=== PATIENT | male | born 1950 ===

== ENCOUNTER 2016-12-20 15:33 | Emergency (ER) | payer OTHER, MEDICARE ==
[2016-12-20 15:34] VITALS: BMI 41.3
[2016-12-20 15:45] VITALS: BP 164/93; PULSE 78; RESP 18; TEMP 97.4; O2SAT 96
[2016-12-20] MEDS ORDERED: Sodium Chloride 0.9% 500 ML IV STA (16:28)
--- NOTE | 2016-12-20 16:35 | ED PDOC ---
HPI: General Adult Time Seen by Provider: 12/20/16 16:19 Chief Complaint (Nursing): GI Problem Chief Complaint (Provider): GI Problem History Per: Patient History/Exam Limitations: no limitations Onset/Duration Of Symptoms: Days (x6 days) Additional Complaint(s): 66 y/o male who presents to the emergency department with a complaint of rectal pain with bleeding x4 days. Patient had a anal fistula surgery on 12/15/2016 and started experiencing symptoms the following day. Denies nausea or vomiting. No abd pain. Has good stool. No weakness. No nausea, vomit. PMD: Dr. Tawana Santos MD Past Medical History Reviewed: Historical Data, Nursing Documentation, Vital Signs Vital Signs: Last Vital Signs Temp 97.4 F L 12/20/16 15:41 Pulse 78 12/20/16 15:41 Resp 18 12/20/16 15:41 BP 164/93 H 12/20/16 15:41 Pulse Ox 96 12/20/16 18:57 - Medical History PMH: Anemia, Arthritis, Atrial Fibrillation (? ), CAD, Cardia Arrhythmia ( atrial fib), CHF, Diabetes (type II), Gall Bladder Disease, HTN, Hypercholesterolemia, Peripheral Edema, Chronic Kidney Disease (renal insufficiency) - Surgical History Surgical History: Cholecystectomy, Coronary Stent Other surgeries: fistula surgery - Family History Family History: States: [place] (mother at age 70) Denies: Unknown Family Hx - Social History Current smoker - smoking cessation education provided: No Alcohol: None Drugs: Denies - Immunization History Hx Tetanus Toxoid Vaccination: No Hx Influenza Vaccination: No Hx Pneumococcal Vaccination: No - Home Medications Home Medications: Ambulatory Orders Medication Instructions Recorded Finasteride [Proscar] 5 mg PO DAILY 09/03/15 Fenofibrate,Micronized [Lofibra] 134 mg PO DAILY 12/04/15 Pantoprazole Sodium [Protonix] 40 mg PO DAILY 12/04/15 Insulin Aspart, Recombinant 20 unit SC BID 10/07/16 [Novolog] Insulin Detemir [Levemir] 50 unit SC HS 10/07/16 Clopidogrel [Plavix] 75 mg PO DAILY #30 tab 10/08/16 Metoprolol Succinate [Toprol XL] 100 mg PO DAILY #30 tab 10/08/16 Acetaminophen/Oxycodone Hydr 1 tab PO Q6H #15 tab 10/20/16 [Percocet 10/325 mg Tab] Polyethylene Glycol 3350 [Miralax] 17 gm PO DAILY PRN #1 bottle 10/20/16 Atorvastatin [Lipitor] 40 mg PO DAILY #30 tab 10/30/16 Isosorbide Mononitrate [Imdur] 60 mg PO DAILY #30 tab 10/30/16 SITagliptin [Januvia] 1 tab PO DAILY 12/15/16 - Allergies Allergies/Adverse Reactions: Allergies Allergy/AdvReac Type Severity Reaction Status Date / Time No Known Allergies Allergy Verified 12/20/16 15:41 Review of Systems ROS Statement: Except As Marked, All Systems Reviewed And Found Negative Gastrointestinal: Positive for: Rectal Pain (with bleeding). Negative for: Nausea, Vomiting Physical Exam - Reviewed Nursing Documentation Reviewed: Yes Vital Signs Reviewed: Yes - Physical Exam Appears: Positive for: Non-toxic, No Acute Distress Head Exam: Positive for: ATRAUMATIC, NORMOCEPHALIC Skin: Positive for: Normal Color, Warm, Dry Neck: Positive for: Normal, Painless ROM, Supple Cardiovascular/Chest: Positive for: Regular Rate, Rhythm. Negative for: Murmur Respiratory: Positive for: Normal Breath Sounds. Negative for: Accessory Muscle Use, Respiratory Distress Gastrointestinal/Abdominal: Positive for: Normal Exam, Bowel Sounds, Soft. Negative for: Tenderness Back: Positive for: Normal Inspection. Negative for: L CVA Tenderness, R CVA Tenderness Rectal: Positive for: Rectal Tone Is: (intact; tender on exam), Other (Guaiac test: positive trace). Negative for: Normal Exam (No gross blood noted ) Neurologic/Psych: Positive for: Alert, Oriented - Laboratory Results Result Diagrams: 12/20/16 16:52 12/20/16 19:42 Interpretation Of Abn Labs: 10.4 hg; stable from previous - ECG O2 Sat by Pulse Oximetry: 96 (RA) Pulse Ox Interpretation: Normal - Progress ED Course And Treament: 2009: Stable. AAOx3. Pain free. Tolerated PO. Fu with pcp. Medical Decision Making Medical Decision Making: Time: 16:19 Initial impression: Rectal bleeding status post anal fistula surgery Initial plan: COMP Metabolic Panel CBC w/ differential Partial Tromboplastin Time (COAG) Prothrombin Time (COAG) Morphine 4 mg IV Sodium Chloride 500 ml IV 100 mls/hr Revaluation Scribe Attestation: Documented by Deedee Dager, acting as a scribe for Villa Pablo MD. Provider Scribe Attestation: All medical record entries made by the Scribe were at my direction and personally dictated by me. I have reviewed the chart and agree that the record accurately reflects my personal performance of the history, physical exam, medical decision making, and the department course for this patient. I have also personally directed, reviewed, and agree with the discharge instructions and disposition. 2008: Stable. Spoke with Dr. Longoria. Well aware of pt. Wants pt. to be dc. HG stable. Some bleeding and pain expected. Pt. to fu with her tomorrow. Disposition - Clinical Impression Clinical Impression: Rectal pain - Patient ED Disposition Is Patient to be Admitted: No Counseled Patient/Family Regarding: Studies Performed, Diagnosis, Need For Followup - Disposition Referrals: Tawana Santos MD [Primary Care Provider] - 12/21/16 Saniya Longoria MD [Staff Provider] - 12/21/16 Disposition: Routine/Home Disposition Time: 20:11 Condition: STABLE Additional Instructions: Return if not better in 3 days. Instructions: Rectal Pain (ED)
[2016-12-20 16:56] LABS: BASO # 0.1 K/uL (0.0-0.2); BASO % 0.7 % (0.0-2.0); EOS # 0.2 K/uL (0.0-0.7); EOS % 1.9 % (0.0-4.0); HEMATOCRIT 33.2 % (35.0-51.0); LYMPH # 1.3 K/uL (1.0-4.3); LYMPH % 15.1 % (20.0-40.0); MEAN CORPUSCULAR HEMOGLOBIN 26.3 pg (27.0-31.0); MEAN CORPUSCULAR HGB CONC 31.3 g/dL (33.0-37.0); MEAN PLATELET VOLUME 11.2 fl (7.2-11.7); MONO # 0.7 K/uL (0.0-0.8); MONO % 8.2 % (0.0-10.0); NEUT # 6.4 K/uL (1.8-7.0); NEUT % 74.1 % (50.0-75.0); NRBC % 0.1 % (0.0-0.0); RED CELL DISTRIBUTION WIDTH 16.1 % (11.5-14.5); WHITE BLOOD COUNT 8.7 K/uL (4.8-10.8)
[2016-12-20 17:01] LABS: BILIRUBIN,TOTAL 0.8 mg/dl (0.2-1.3); CALCIUM 10.8 mg/dL (8.4-10.2)
[2016-12-20 17:04] LABS: POTASSIUM 5.3 MMOL/L (3.6-5.0)
[2016-12-20 17:12] LABS: PARTIAL THROMBOPLASTIN TIME 20.9 SECONDS (23.3-32.5)
== END 2016-12-20 20:12 | disposition home or self-care (01) ==
LOC: H.ER 15:33
DX: K62.89 Other specified diseases of anus and rectum (principal); E11.9 Type 2 diabetes mellitus without complications; E78.00 Pure hypercholesterolemia, unspecified; I10 Essential (primary) hypertension; I12.9 Hypertensive chronic kidney disease with stage 1 through stage 4 chronic kidney disease, or unspecified chronic kidney disease; K62.5 Hemorrhage of anus and rectum; Z79.4 Long term (current) use of insulin; Z95.5 Presence of coronary angioplasty implant and graft

== ENCOUNTER 2017-03-23 01:41 | Inpatient (IN) | payer OTHER ==
[2017-03-23 01:42] VITALS: BMI 41.3
[2017-03-23] MEDS ORDERED: Nitroglycerin 2% 15 INCH/30 GM TUBE TOP STA (02:41)
--- NOTE | 2017-03-23 02:49 | ED PDOC ---
HPI: Chest Pain Time Seen by Provider: 03/23/17 01:58 Chief Complaint (Nursing): Chest Pain Chief Complaint (Provider): Chest Pain History Per: Patient History/Exam Limitations: no limitations Onset/Duration Of Symptoms: Intermittent Episodes, Other (x1 week) Current Symptoms Are (Timing): Still Present Associated Symptoms: Dyspnea. denies: Nausea, Diaphoresis Additional Complaint(s): 66 year old male presents to ED with complaints of intermittent chest pain x1 week and has a past medical history of SVT, AFIB, DM, HTN, CHF, and CAD. (+) sob , (-) nausea, vomiting, diaphoresis, cough, or fever. PCP: Dr. Santos - Risk Factors PE Risk Factors: Pos: CHF TAD Risk Factors: Pos: Hypertension Past Medical History Reviewed: Historical Data, Nursing Documentation, Vital Signs Vital Signs: Last Vital Signs Temp 98.4 F 03/25/17 08:00 Pulse 66 03/25/17 09:00 Resp 18 03/25/17 08:00 BP 144/82 03/25/17 08:52 Pulse Ox 98 03/25/17 08:00 - Medical History PMH: Anemia, Arthritis, Atrial Fibrillation (? ), CAD, Cardia Arrhythmia ( atrial fib), CHF, Diabetes (type II), Gall Bladder Disease, HTN, Hypercholesterolemia, Peripheral Edema, Chronic Kidney Disease (renal insufficiency) - Surgical History Surgical History: Cholecystectomy, Coronary Stent - Family History Family History: States: [place] (mother at age 70) Denies: Unknown Family Hx - Social History Alcohol: < 2 Drinks/Day Drugs: Denies - Immunization History Hx Tetanus Toxoid Vaccination: No Hx Influenza Vaccination: No Hx Pneumococcal Vaccination: No - Home Medications Home Medications: Ambulatory Orders Medication Instructions Recorded Finasteride [Proscar] 5 mg PO DAILY 09/03/15 Fenofibrate,Micronized [Lofibra] 134 mg PO DAILY 12/04/15 Pantoprazole Sodium [Protonix] 40 mg PO DAILY 12/04/15 Insulin Aspart, Recombinant 20 unit SC BID 10/07/16 [Novolog] Insulin Detemir [Levemir] 50 unit SC HS 10/07/16 Clopidogrel [Plavix] 75 mg PO DAILY #30 tab 10/08/16 Metoprolol Succinate [Toprol XL] 100 mg PO DAILY #30 tab 10/08/16 Atorvastatin [Lipitor] 40 mg PO DAILY #30 tab 10/30/16 Isosorbide Mononitrate [Imdur] 60 mg PO DAILY #30 tab 10/30/16 SITagliptin [Januvia] 1 tab PO DAILY 12/15/16 Losartan Potassium 1 tab PO DAILY 03/23/17 Simvastatin [Zocor] 1 tab PO DAILY 03/23/17 Aspirin [Adult Low Dose Aspirin EC] 81 mg PO DAILY #30 tablet. 03/25/17 - Allergies Allergies/Adverse Reactions: Allergies Allergy/AdvReac Type Severity Reaction Status Date / Time No Known Allergies Allergy Verified 12/20/16 15:41 DEEP Risk Score for UA/NSTEMI - DEEP Risk Score Age > 64: YES 3 or more CAD Risk Factors: YES Known CAD (Stenosis greater than 50%): YES DEEP Score: 3 Risk %: 13% Curb-65 Severity Score - CURB-65 Severity Score Confusion: No Respiratory Rate greater than/equal to 30: No Systolic BP <90 or Diastolic BP less than/equal 60mmHg: No Age >64: Yes Curb-65 Score: 1 Percentage 30-day mortality: 2.7% Wells Criteria for PE - Wells Criteria for Pulmonary Embolism Clinical Signs and Symptoms of DVT: No P.E is #1 Diagnosis, or Equally Likely: No Heart Rate >100: No Immobilization at least 3 days;Surgery previous 4 weeks: No Previous, objectively diagnosed PE or DVT: No Hemoptysis: No Malignancy w/treatment within 6 months, or palliative: No Total Score: 0 Review of Systems ROS Statement: Except As Marked, All Systems Reviewed And Found Negative Constitutional: Negative for: Fever, Sweats Cardiovascular: Positive for: Chest Pain Respiratory: Positive for: Shortness of Breath. Negative for: Cough Gastrointestinal: Negative for: Nausea, Vomiting Physical Exam - Reviewed Nursing Documentation Reviewed: Yes Vital Signs Reviewed: Yes - Physical Exam Appears: Positive for: Non-toxic, No Acute Distress Head Exam: Positive for: ATRAUMATIC Skin: Positive for: Normal Color, Warm, Dry Eye Exam: Positive for: Normal appearance, EOMI, PERRL ENT: Positive for: Normal ENT Inspection Neck: Positive for: Normal, Painless ROM, Supple Cardiovascular/Chest: Positive for: Regular Rate, Rhythm. Negative for: Murmur Respiratory: Positive for: Normal Breath Sounds. Negative for: Respiratory Distress Gastrointestinal/Abdominal: Positive for: Normal Exam, Soft. Negative for: Tenderness Back: Positive for: Normal Inspection Extremity: Positive for: Normal ROM. Negative for: Deformity Neurologic/Psych: Positive for: Alert, Oriented. Negative for: Motor/Sensory Deficits - Laboratory Results Result Diagrams: 03/25/17 11:30 03/24/17 04:20 - ECG Interpretation Of ECG: Sinus arrhythmia, nonspecific ST abnormalities. Rate: 91 (at 0146) O2 Sat by Pulse Oximetry: 98 (RA) Pulse Ox Interpretation: Normal - Radiology X-Ray: Interpreted by Me, Viewed By Me X-Ray Interpretation: Cardiomegaly, Other (Pulmonary vascular congestion) - Critical Care Total Time (In Min): 30 Medical Decision Making Medical Decision Makin Initial impression: chest pain in setting of known HTN, CAD, and DM Initial plan: * EKG * EtOH serum * Labs * UDrug screen * Trop I * PTT/PT * CXR * ASA 324mg PO * Nitro-Bid 2% Oint 1 inch TOP * Re-eval 0242 Given patient's multiple risk factors and history, patient will be admitted as OBS TELE patient under Dr. Santos. 0329 Labs reviewed: significant for elevated Troponin and creatinine. Given multiple risk factors, will admit to ICU under Dr. Guido (hospitalist). * Lopressor 25mg PO * Morphine 2mg IVP * Re-eval CXR: mild cardiomegaly and pulmonary vascular congestion Scribe Attestation: Documented by Hanna Martínez acting as a scribe for Ousmane Samaniego MD. Scribe Attestation: All medical record entries made by the Scribe were at my direction and personally dictated by me. I have reviewed the chart and agree that the record accurately reflects my personal performance of the history, physical exam, medical decision making, and the department course for this patient. I have also personally directed, reviewed, and agree with the discharge instructions and disposition. Disposition - Clinical Impression Clinical Impression: Non-STEMI (non-ST elevated myocardial infarction), CHF (congestive heart failure) - Patient ED Disposition Is Patient to be Admitted: Yes Discussed With : Ty Guido (ICU admission) Doctor Will See Patient In The: Hospital - Disposition Disposition Time: 02:42 Condition: FAIR
[2017-03-23 03:09] LABS: ALB/GLOB RATIO 1.2 (1.0-2.1); ALBUMIN 4.3 g/dL (3.5-5.0); ALT/SGPT 42 U/L (21-72); AST/SGOT 36 U/L (17-59); BLOOD UREA NITROGEN 27 mg/dl (9-20); CALCIUM 10.6 mg/dL (8.4-10.2); GFR AFRICAN-AMERICAN 52; GFR NON-AFRICAN AMERICAN 43
[2017-03-23 03:10] LABS: PARTIAL THROMBOPLASTIN TIME 30.5 Seconds (25.6-37.1); PROTHROMBIN TIME 11.8 Seconds (9.8-13.1)
[2017-03-23] MEDS ORDERED: Enoxaparin 80 mg Syringe SC STA (03:26)
[2017-03-23] MEDS ORDERED: Heparin 25,000units in D5W 25,000 UNITS/250 ML BAG IV SCH ×2 (03:30→19:45)
[2017-03-23 03:32] LABS: BASO # 0.1 K/uL (0.0-0.2); BASO % 1.1 % (0.0-2.0); EOS # 0.2 K/uL (0.0-0.7); EOS % 2.7 % (0.0-4.0); HEMOGLOBIN 11.2 g/dL (12.0-18.0); LYMPH # 2.5 K/uL (1.0-4.3); LYMPH % 29.1 % (20.0-40.0); MEAN CELL VOLUME 77.5 fl (80.0-94.0); MEAN CORPUSCULAR HEMOGLOBIN 24.9 pg (27.0-31.0); MEAN CORPUSCULAR HGB CONC 32.1 g/dL (33.0-37.0); MEAN PLATELET VOLUME 10.4 fl (7.2-11.7); MONO # 0.7 K/uL (0.0-0.8); MONO % 8.5 % (0.0-10.0); NEUT % 58.6 % (50.0-75.0); NRBC % 0.3 % (0.0-0.0); RBC 4.51 Mil/uL (4.40-5.90); WHITE BLOOD COUNT 8.5 K/uL (4.8-10.8)
[2017-03-23] MEDS ORDERED: Heparin25000 units/250ml 1/2NS 25,000 UNITS/250 ML BAG IV ONE (03:42)
--- NOTE | 2017-03-23 03:49 | CP.PCM.HP ---
History of Present Illness - History of Present Illness History of Present Illness: PCP: Dr Santos Reason for Consult: Critical care Management Chief complaint: Chest Pain HPI: 66 years old male with hx of A Fib, DM, HTN and CAD comes with one week hx of intermittent left sided chest pain, nonradiating and begins at rest or on exertion, associated with diaphoresis. No nausea, vomits. He does refer pain to the Epigastrium, RUQ and RLQ that is also intermittent. PMH: Anemia, Arthritis, Afib, CAD, CHF, DM (type II), Gall Bladder Disease, HTN, HLD, Peripheral Edema, CKD (renal insufficiency) PSH: Cholecystectomy, Coronary Stent; Anal Fistulectomy 12/15/16; Tracheostomy and reversal SH: Quit Alcohol; Never Smoked; no illegal drug use FH:CAD, Ca run in the family Allergies: NKDA Present on Admission - Present on Admission Any Indicators Present on Admission: Yes History of DVT/PE: No History of Uncontrolled Diabetes: Yes Urinary Catheter: No Decubitus Ulcer Present: No Review of Systems - Constitutional Constitutional: Headache, Weakness. absent: Anorexia, Chills, Fatigue, Fever - EENT Eyes: Requires Corrective Lenses. absent: Diplopia, Floaters, Photophobia Ears: absent: Decreased Hearing, Ear Discharge, Ear Pain, Tinnitus Nose/Mouth/Throat: absent: Epistaxis, Nasal Congestion, Nasal Discharge, Sinus Pain, Sinus Pressure - Cardiovascular Cardiovascular: Chest Pain at Rest. absent: Chest Pain, Dyspnea, Edema - Respiratory Respiratory: absent: Cough, Dyspnea, Wheezing, Chest Congestion - Gastrointestinal Gastrointestinal: Abdominal Pain. absent: Constipation, Diarrhea, Nausea, Vomiting - Genitourinary Genitourinary: absent: Dysuria, Flank Pain, Hematuria, Urinary Frequency - Musculoskeletal Musculoskeletal: absent: Arthralgias, Muscle Cramps, Muscle Weakness, Myalgias, Numbness - Integumentary Integumentary: absent: Skin Pain, Skin Ulcer, Sores, Striae, Swelling - Neurological Neurological: absent: Confusion, Numbness, Focal Weakness, Vertigo - Psychiatric Psychiatric: Depression. absent: Anxiety, Panic Attacks - Endocrine Endocrine: absent: Palpitations, Polydipsia, Polyphagia, Polyuria - Hematologic/Lymphatic Hematologic: absent: Easy Bleeding, Easy Bruising Past Patient History - Infectious Disease Hx of Infectious Diseases: None - Past Medical History & Family History Past Medical History?: Yes - Past Social History Smoking Status: Former Smoker Chewing Tobacco Use: No Cigar Use: No Alcohol: < 2 Drinks/Day Drugs: Denies Home Situation {Lives}: With Family - CARDIAC Hx Atrial Fibrillation: Yes (? ) Hx Cardia Arrhythmia: Yes (atrial fib) Hx Congestive Heart Failure: Yes Hx Hypercholesterolemia: Yes Hx Hypertension: Yes Hx Peripheral Edema: Yes - PULMONARY Other/Comment: S/P tracheostomy and reversal due to throat infection - NEUROLOGICAL Hx Neurological Disorder: No - HEENT Hx HEENT Problems: No - RENAL Hx Chronic Kidney Disease: Yes (renal insufficiency) - ENDOCRINE/METABOLIC Hx Diabetes Mellitus Type 1: Yes - HEMATOLOGICAL/ONCOLOGICAL Hx Anemia: Yes - INTEGUMENTARY Hx Dermatological Problems: Yes (scrotal lesions due to anal drainage per pt) - MUSCULOSKELETAL/RHEUMATOLOGICAL Hx Arthritis: Yes - GASTROINTESTINAL Hx Gall Bladder Disease: Yes - GENITOURINARY/GYNECOLOGICAL Hx Genitourinary Disorders: Yes Hx Prostate Problems: Yes - PSYCHIATRIC Hx Psychophysiologic Disorder: No Hx Substance Use: No - SURGICAL HISTORY Hx Cholecystectomy: Yes Hx Coronary Stent: Yes - ANESTHESIA Hx Anesthesia: Yes Hx Anesthesia Reactions: No Hx Malignant Hyperthermia: No Meds Allergies/Adverse Reactions: Allergies Allergy/AdvReac Type Severity Reaction Status Date / Time No Known Allergies Allergy Verified 12/20/16 15:41 Physical Exam - Constitutional Appears: No Acute Distress - Head Exam Head Exam: ATRAUMATIC, NORMAL INSPECTION, NORMOCEPHALIC - Eye Exam Eye Exam: EOMI, Normal appearance Pupil Exam: NORMAL ACCOMODATION, PERRL - ENT Exam ENT Exam: Mucous Membranes Moist, Normal External Ear Exam, Normal Oropharynx - Neck Exam Neck exam: Positive for: Full Rom, Normal Inspection. Negative for: Lymphadenopathy, Tenderness - Respiratory Exam Respiratory Exam: Clear to Auscultation Bilateral. absent: Rales, Rhonchi, Wheezes - Cardiovascular Exam Cardiovascular Exam: REGULAR RHYTHM, RRR, +S1, +S2. absent: JVD - GI/Abdominal Exam Additional comments: obese, soft, +ve bowel sounds, No guarding, no rebound tenderness. - Rectal Exam Rectal Exam: Deferred - Extremities Exam Extremities exam: Positive for: full ROM, normal inspection. Negative for: calf tenderness, joint swelling, pedal edema - Back Exam Back exam: NORMAL INSPECTION. absent: CVA tenderness (L), CVA tenderness (R) - Neurological Exam Neurological exam: Alert, CN II-XII Intact, Oriented x3, Reflexes Normal - Psychiatric Exam Psychiatric exam: Normal Affect, Normal Mood - Skin Skin Exam: Dry, Intact, Normal Color, Warm Results - Vital Signs Recent Vital Signs: Last Vital Signs Temp 98.7 F 03/23/17 01:59 Pulse 91 H 03/23/17 03:35 Resp 16 03/23/17 03:13 BP 142/79 03/23/17 03:13 Pulse Ox 98 03/23/17 03:35 - Labs Result Diagrams: 03/23/17 02:37 03/23/17 02:37 Labs: Laboratory Results - last 24 hr 03/23/17 03/23/17 03/23/17 02:37 02:37 02:37 WBC 8.5 RBC 4.51 Hgb 11.2 L Hct 34.9 L MCV 77.5 L D MCH 24.9 L MCHC 32.1 L RDW 18.0 H Plt Count 221 MPV 10.4 Neut % (Auto) 58.6 Lymph % (Auto) 29.1 Catron % (Auto) 8.5 Eos % (Auto) 2.7 Baso % (Auto) 1.1 Neut # 5.0 Lymph # 2.5 Catron # 0.7 Eos # 0.2 Baso # 0.1 PT 11.8 INR 1.0 APTT 30.5 Sodium 140 Potassium 4.3 Chloride 104 Carbon Dioxide 24 Anion Gap 17 BUN 27 H Creatinine 1.6 H Est GFR ( Amer) 52 Est GFR (Non-Af Amer) 43 Random Glucose 204 H Calcium 10.6 H Total Bilirubin 0.5 AST 36 ALT 42 Alkaline Phosphatase 44 Troponin I 0.2580 H* Total Protein 7.9 Albumin 4.3 Globulin 3.6 Albumin/Globulin Ratio 1.2 Alcohol, Quantitative < 10 - EKG Data EKG comments: NSR with sinus arrhythmia 91/min - Imaging and Cardiology Chest x-ray Status: Image reviewed by me Additional comment: Cardiomegaly with no infiltrate. Assessment & Plan - Assessment and Plan (Free Text) Assessment: #. NSTEMI #. Acute on Chronic Kidney disease #. DM with Hyperglycemia #. Anemia #. CAD s/p Stent #. HTN #. HLD Plan: 66 years old male with hx of A Fib, DM, HTN and CAD comes with one week hx of intermittent left sided chest pain, nonradiating and begins at rest or on exertion, associated with diaphoresis. No nausea, vomits. He does refer pain to the Epigastrium, RUQ and RLQ that is also intermittent. #. NSTEMI - Consult Dr Lai cardiology - serial Troponin - Serial EKG- ASA/Plavix/ Heparin IV/ Toprol/ Isosorbide mononitrate -ECHO #. Acute on Chronic Kidney disease - Slow rehydration - follow Renal labs #. DM with Hyperglycemia - diabetic Diet - Januvia/Levemir - Aspart insulin sliding scale to Accucheck ACHS - HbA1c #. Anemia - follow HB #. CAD s/p Stent - ASA/ Lipitor/Plavix #. HTN controlled - Toprol #. Abdominal Pain - Abdominal US #. HLD - Lipitor/fenofibrate #. DVT prophylaxis - patient on IV Heparin #. Code Status: Full - Date & Time Date: 03/23/17 Time: 03:49
[2017-03-23] MEDS: Morphine 4 MG/ML VIAL IVP PRN ×2 (06:28→19:50)
[2017-03-23] MEDS ORDERED: Morphine 4 MG/ML VIAL IVP PRN (06:30)
--- NOTE | 2017-03-23 08:34 | CARD ---
APPROVED REPORT EKG Measurement Heart [id number] <Conclusion> Normal sinus rhythm with sinus arrhythmia Possible Left atrial enlargement Nonspecific ST abnormality Abnormal ECG
[2017-03-23] MEDS: Pantoprazole 40 mg EC Tab PO SCH (08:52)
[2017-03-23] MEDS: Metoprolol Succinate 100 mg XL Tab PO SCH (08:58)
[2017-03-23] MEDS ORDERED: FENOFIBRATE MICRONIZED 134 MG PO SCH (09:00)
[2017-03-23 10:18] LABS: CALCIUM 10.5 mg/dL (8.4-10.2)
--- NOTE | 2017-03-23 10:42 | CP.PCM.CON ---
History of Present Illness - History of Present Illness History of Present Illness: THE PATIENT IS A 66 YEAR OLD MALE KNOWN TO ME FROM A PRIOR [facility] ADMISSION. HE HAS A HISTORY OF CAD, AN OLD IWMI AND STENT INSERTIONS IN THE LAD AND LT CX, HYPERTENSION, HYPERLIPIDEMIA, DM AND RENAL INSUFFICIENCY. HE WAS ADMITTED TO [facility] IN OCTOBER 2016 FOR CHEST PAIN AND HAD A TROPONIN OF 0.39. HE HAS A CARDIAC CATH BY DR VILLEGAS AT THAT TIME AND BOTH STENTS WERE OPEN BUT HE HAD SMALL VESSEL DISEASE THAT WAS PROBABLY THE CAUSE OF HIS TROPONIN ALONG WITH HIS RENAL INSUFFICIENCY AND MEDICAL TREATMENT WAS RECOMMENDED. HE WAS DOING WELL BUT HE AT TIMES WAS NOT FULLY COMPLIANT WITH TAKING HIS MEDICINES. HE HAD RECENT SURGERY FOR AN ANAL FISTULA. 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 HE IS CHEST PAIN FREE AT THE PRESENT TIME. Past Patient History - Infectious Disease Hx of Infectious Diseases: None - Past Medical History & Family History Past Medical History?: Yes - Past Social History Smoking Status: Former Smoker Chewing Tobacco Use: No Cigar Use: No Alcohol: < 2 Drinks/Day Drugs: Denies Home Situation {Lives}: With Family - CARDIAC Hx Atrial Fibrillation: Yes (? ) Hx Cardia Arrhythmia: Yes (atrial fib) Hx Congestive Heart Failure: Yes Hx Hypercholesterolemia: Yes Hx Hypertension: Yes Hx Peripheral Edema: Yes - PULMONARY Other/Comment: S/P tracheostomy and reversal due to throat infection - NEUROLOGICAL Hx Neurological Disorder: No - HEENT Hx HEENT Problems: No - RENAL Hx Chronic Kidney Disease: Yes (renal insufficiency) - ENDOCRINE/METABOLIC Hx Diabetes Mellitus Type 1: Yes - HEMATOLOGICAL/ONCOLOGICAL Hx Anemia: Yes - INTEGUMENTARY Hx Dermatological Problems: Yes (scrotal lesions due to anal drainage per pt) - MUSCULOSKELETAL/RHEUMATOLOGICAL Hx Arthritis: Yes - GASTROINTESTINAL Hx Gall Bladder Disease: Yes - GENITOURINARY/GYNECOLOGICAL Hx Genitourinary Disorders: Yes Hx Prostate Problems: Yes - PSYCHIATRIC Hx Psychophysiologic Disorder: No Hx Substance Use: No - SURGICAL HISTORY Hx Cholecystectomy: Yes Hx Coronary Stent: Yes - ANESTHESIA Hx Anesthesia: Yes Hx Anesthesia Reactions: No Hx Malignant Hyperthermia: No Meds Allergies/Adverse Reactions: Allergies Allergy/AdvReac Type Severity Reaction Status Date / Time No Known Allergies Allergy Verified 12/20/16 15:41 - Medications Medications: Current Medications Aspirin (Ecotrin) 81 mg PO DAILY [facility] Last Admin: 03/23/17 08:50 Dose: 81 mg Atorvastatin Calcium (Lipitor) 40 mg PO DAILY [facility] Last Admin: 03/23/17 08:51 Dose: 40 mg Clopidogrel Bisulfate (Plavix) 75 mg PO DAILY [facility] Last Admin: 03/23/17 08:51 Dose: 75 mg Fenofibrate (Tricor) 145 mg PO DAILY [facility] Last Admin: 03/23/17 08:50 Dose: 145 mg Finasteride (Proscar) 5 mg PO DAILY [facility] Last Admin: 03/23/17 08:50 Dose: 5 mg Heparin Sodium/Dextrose (Heparin 25,000 Units/250ml In D5w) 25,000 units in 250 mls @ 10 mls/hr IV .Q24H [facility] PRN Reason: Protocol Last Admin: 03/23/17 03:46 Dose: 10 mls/hr Insulin Detemir (Levemir) 50 units SC [facility] Isosorbide Mononitrate (Imdur) 120 mg PO DAILY [facility] Metoprolol Succinate (Toprol Xl) 100 mg PO DAILY [facility] Last Admin: 03/23/17 08:58 Dose: 100 mg Morphine Sulfate (Morphine) 4 mg IVP Q4 PRN PRN Reason: Pain, severe (8-10) Last Admin: 03/23/17 06:28 Dose: 4 mg Morphine Sulfate (Morphine) 2 mg IVP Q4 PRN PRN Reason: Pain, moderate (4-7) Pantoprazole Sodium (Protonix Ec Tab) 40 mg PO DAILY [facility] Last Admin: 03/23/17 08:52 Dose: 40 mg Sitagliptin Phosphate (Januvia) 50 mg PO DAILY [facility] Last Admin: 03/23/17 08:51 Dose: 50 mg Physical Exam - Respiratory Exam Respiratory Exam: Clear to Auscultation Bilateral - Cardiovascular Exam Cardiovascular Exam: REGULAR RHYTHM, +S1, +S2 - Extremities Exam Extremities exam: Positive for: normal inspection - Additional Findings Additional findings: EKG NSR, NSSTT CHANGES TROPONIN # 1 0.25 CR 1.6 GFR 43 Results - Vital Signs Recent Vital Signs: Last Vital Signs Temp 97.8 F 03/23/17 08:00 Pulse 76 03/23/17 08:58 Resp 16 03/23/17 08:00 BP 139/73 03/23/17 08:58 Pulse Ox 100 03/23/17 08:00 - Labs Result Diagrams: 03/23/17 02:37 03/23/17 09:10 Labs: Laboratory Results - last 24 hr 03/23/17 03/23/17 05:02 09:10 Sodium 139 Potassium 4.0 Chloride 104 Carbon Dioxide 25 Anion Gap 14 BUN 24 H Creatinine 1.5 Est GFR ( Amer) 56 Est GFR (Non-Af Amer) 47 POC Glucose (mg/dL) 127 H Random Glucose 114 H Calcium 10.5 H Assessment & Plan - Assessment and Plan (Free Text) Assessment: CAD WITH OLD IWMI AND INSETION OF LAD AND LT CX STENTS. CHEST PAIN AND MILDLY ELEVATED TROPONIN 10/30 WITH CARDIAC CATH SHOWING PATENT STENTS AND SMALL ARTERY DISEASE. CHEST PAIN FREE NOW. HYPERTENSION HYPERLIPIDEMIA DM RENAL INSUFFICIENCY Plan: CONTINUE 02, METOPROLOL, IMDUR INCREASED FROM 60 TO 90 MGS DAILY, ASPIRIN, CLOPIDOGREL, HEPARIN, ATORVASTATIN, FENOFIBRATE, JANUVIA SERIAL EKGS AND TROPONINS I SPOKE TO DR VILLEGAS AND WE BOTH AGREE THAT THE PATIENT DOESN'T NEED A REPEAT CARDIAC CATH AT THIS TIME HE JUST HAD ONE DONE 5 MONTHS AGO AND HAD PATENT STENTS AND ALSO HAS SMALL ARTERY DISEASE
--- NOTE | 2017-03-23 13:28 | RAD ---
HISTORY: chest pain COMPARISON: 10/28/2016 FINDINGS: LUNGS: No active pulmonary disease. PLEURA: No significant pleural effusion identified, no pneumothorax apparent. CARDIOVASCULAR: Normal. OSSEOUS STRUCTURES: No significant abnormalities. VISUALIZED UPPER ABDOMEN: Normal. OTHER FINDINGS: None. IMPRESSION: No active disease.
--- NOTE | 2017-03-23 14:42 | US ---
HISTORY: Pain to RUQ and RLQ /Epigastrium COMPARISON: 12/29/2014 TECHNIQUE: Sonographic evaluation of the abdomen. FINDINGS: LIVER: Measures 16.1 cm. Hepatopedal blood flow. Fatty infiltration manifest ultrasonographically as increased echogenicity of the liver parenchyma. No mass. No intrahepatic bile duct dilatation. GALLBLADDER: Status post cholecystectomy. No abnormality is seen in the gallbladder fossa. COMMON BILE DUCT: Measures 5.6 mm. No stones. No dilatation. PANCREAS: Unremarkable as visualized. No mass. No ductal dilatation. RIGHT KIDNEY: Measures 6.2 x 10.4cm. Normal echogenicity. No calculus, mass, or hydronephrosis. LEFT KIDNEY: Measures 5.1 x 10 pointcm. Normal echogenicity. No calculus, mass, or hydronephrosis. SPLEEN: Normal in size and contour. No mass. AORTA: No aneurysmal dilatation. IVC: Unremarkable. OTHER FINDINGS: None. IMPRESSION: No significant or acute findings to account for/ related to the clinical presentation. No significant interval change compared to the prior examination(s).
--- NOTE | 2017-03-23 14:45 | CARD ---
APPROVED REPORT EXAM: Two-dimensional and M-mode echocardiogram with Doppler and color Doppler. Other Information Quality : GoodRhythm : NSR INDICATION Elevated Troponin 2D DIMENSIONS IVSd2.35 (0.7-1.1cm)LVDd4.19 (3.9-5.9cm) LVOT Diameter2.10 (1.8-2.4cm)PWd1.84 (0.7-1.1cm) IVSs2.78 (0.8-1.2cm)LVDs2.25 (2.5-4.0cm) FS (%) 46.3 %PWs2.88 (0.8-1.2cm) M-Mode DIMENSIONS Left Atrium (MM)4.82 (2.5-4.0cm)IVSd1.75 (0.7-1.1cm) Aortic Root3.18 (2.2-3.7cm)LVDd4.72 (4.0-5.6cm) Aortic Cusp Exc.2.24 (1.5-2.0cm)PWd1.71 (0.7-1.1cm) IVSs2.62 cmFS (%) 51 % LVDs2.31 (2.0-3.8cm)PWs2.38 cm Mitral Valve MV E Odmqyitb77.4cm/sMV DECEL [id number] A Fgoihsrv80.2cm/s MV GAK07ocS/A ratio0.7MVA (PHT)2.51cm2 TDI Lateral E' Peak V5.21cm/sMedial E' Peak V5.21cm/sE/Lateral E'11.4 E/Medial E'11.4 Pulmonary Valve PV Peak Vpvpglvq04.0cm/s LEFT VENTRICLE The left ventricle is normal size. There is moderate to severe concentric left ventricular hypertrophy. Left ventricle systolic function is normal. The Ejection Fraction is 65-70%. There is normal LV segmental wall motion. Transmitral Doppler flow pattern is Grade I-abnormal relaxation pattern. RIGHT VENTRICLE The right ventricle is normal size. There is normal right ventricular wall thickness. The right ventricular systolic function is normal. ATRIA The left atrium is moderately dilated. The right atrium size is normal. AORTIC VALVE The aortic valve is normal in structure and function. No aortic regurgitation is present. There is no aortic valvular stenosis. MITRAL VALVE The mitral valve is normal in structure and function. There is no evidence of mitral valve prolapse. There is no mitral valve stenosis. There is no mitral valve regurgitation noted. TRICUSPID VALVE The tricuspid valve is normal in structure and function. There is no tricuspid valve regurgitation noted. There is no tricuspid valve prolapse or vegetation. PULMONIC VALVE The pulmonary valve is normal in structure and function. There is no pulmonic valvular regurgitation. GREAT VESSELS The aortic root is normal in size. Due to poor image quality, the IVC could not be assessed. PERICARDIAL EFFUSION The pericardium appears normal. <Conclusion> The left ventricle is normal size. There is moderate to severe concentric left ventricular hypertrophy. There is normal LV segmental wall motion. Left ventricle systolic function is normal. The Ejection Fraction is 65-70%. Transmitral Doppler flow pattern is Grade I-abnormal relaxation pattern.
--- NOTE | 2017-03-23 15:09 | CARD ---
APPROVED REPORT EKG Measurement Heart [id number] <Conclusion> Normal sinus rhythm Normal ECG
--- NOTE | 2017-03-23 21:51 | CP.PCM.HP ---
History of Present Illness - History of Present Illness History of Present Illness: 66 years old male with hx of A Fib, DM, HTN and CAD comes with one week hx of intermittent left sided chest pain, nonradiating and begins at rest or on exertion, associated with diaphoresis. No nausea, vomiting. He does refer pain to the Epigastrium, RUQ and RLQ that is also intermittent. Past Patient History - Infectious Disease Hx of Infectious Diseases: None - Past Medical History & Family History Past Medical History?: Yes - Past Social History Smoking Status: Former Smoker Chewing Tobacco Use: No Cigar Use: No Alcohol: < 2 Drinks/Day Drugs: Denies Home Situation {Lives}: With Family - CARDIAC Hx Atrial Fibrillation: Yes (? ) Hx Cardia Arrhythmia: Yes (atrial fib) Hx Congestive Heart Failure: Yes Hx Hypercholesterolemia: Yes Hx Hypertension: Yes Hx Peripheral Edema: Yes - PULMONARY Other/Comment: S/P tracheostomy and reversal due to throat infection - NEUROLOGICAL Hx Neurological Disorder: No - HEENT Hx HEENT Problems: No - RENAL Hx Chronic Kidney Disease: Yes (renal insufficiency) - ENDOCRINE/METABOLIC Hx Diabetes Mellitus Type 1: Yes - HEMATOLOGICAL/ONCOLOGICAL Hx Anemia: Yes - INTEGUMENTARY Hx Dermatological Problems: Yes (scrotal lesions due to anal drainage per pt) - MUSCULOSKELETAL/RHEUMATOLOGICAL Hx Arthritis: Yes - GASTROINTESTINAL Hx Gall Bladder Disease: Yes - GENITOURINARY/GYNECOLOGICAL Hx Genitourinary Disorders: Yes Hx Prostate Problems: Yes - PSYCHIATRIC Hx Psychophysiologic Disorder: No Hx Substance Use: No - SURGICAL HISTORY Hx Cholecystectomy: Yes Hx Coronary Stent: Yes - ANESTHESIA Hx Anesthesia: Yes Hx Anesthesia Reactions: No Hx Malignant Hyperthermia: No Meds Allergies/Adverse Reactions: Allergies Allergy/AdvReac Type Severity Reaction Status Date / Time No Known Allergies Allergy Verified 12/20/16 15:41 Physical Exam - Head Exam Head Exam: ATRAUMATIC, NORMOCEPHALIC - Eye Exam Eye Exam: PERRL Pupil Exam: PERRL - ENT Exam ENT Exam: Mucous Membranes Moist - Neck Exam Neck exam: Positive for: Full Rom - Extremities Exam Extremities exam: Positive for: full ROM - Back Exam Back exam: FULL ROM - Neurological Exam Neurological exam: Alert, Normal Gait - Skin Skin Exam: Dry, Warm Results - Vital Signs Recent Vital Signs: Last Vital Signs Temp 98.1 F 03/23/17 16:00 Pulse 84 03/23/17 18:00 Resp 14 03/23/17 18:00 BP 137/76 03/23/17 18:00 Pulse Ox 100 03/23/17 18:00 - Labs Result Diagrams: 03/23/17 02:37 03/23/17 09:10 Labs: Laboratory Results - last 24 hr 03/23/17 03/23/17 03/23/17 05:02 09:10 09:10 APTT Sodium Potassium Chloride Carbon Dioxide Anion Gap BUN Creatinine Est GFR ( Amer) Est GFR (Non-Af Amer) POC Glucose (mg/dL) 127 H Random Glucose Hemoglobin A1c 8.0 H Calcium Troponin I 0.3270 H* 03/23/17 03/23/17 03/23/17 09:10 10:50 11:48 APTT 65.1 H D Sodium 139 Potassium 4.0 Chloride 104 Carbon Dioxide 25 Anion Gap 14 BUN 24 H Creatinine 1.5 Est GFR ( Amer) 56 Est GFR (Non-Af Amer) 47 POC Glucose (mg/dL) 208 H Random Glucose 114 H Hemoglobin A1c Calcium 10.5 H Troponin I 03/23/17 03/23/17 03/23/17 16:55 18:25 18:41 APTT 41.4 H D Sodium Potassium Chloride Carbon Dioxide Anion Gap BUN Creatinine Est GFR ( Amer) Est GFR (Non-Af Amer) POC Glucose (mg/dL) 174 H Random Glucose Hemoglobin A1c Calcium Troponin I 0.2690 H* Assessment & Plan - Assessment and Plan (Free Text) Assessment: . NSTEMI . Acute on Chronic Kidney disease . DM with Hyperglycemia . Anemia . CAD s/p Stent . HTN . HLD Plan: Follow cardiology recommendations Continue home medications
[2017-03-23] MEDS ORDERED: INSULIN DETEMIR 50 UNIT SC SCH (22:00)
[2017-03-23] MEDS ORDERED: Insulin Detemir 100 Units/ml Inj SC SCH ×2 (22:00→22:34)
[2017-03-24] MEDS ORDERED: Heparin 25,000units in D5W 25,000 UNITS/250 ML BAG IV SCH ×2 (02:50→11:00)
[2017-03-24] MEDS: Morphine 4 MG/ML VIAL IVP PRN ×3 (03:42→21:25)
[2017-03-24 05:20] LABS: HEMOGLOBIN 9.5 g/dL (12.0-18.0); MEAN CELL VOLUME 78.7 fl (80.0-94.0); MEAN CORPUSCULAR HEMOGLOBIN 24.7 pg (27.0-31.0); MEAN CORPUSCULAR HGB CONC 31.4 g/dL (33.0-37.0); RBC 3.86 Mil/uL (4.40-5.90); WHITE BLOOD COUNT 6.1 K/uL (4.8-10.8)
[2017-03-24 05:28] LABS: ALB/GLOB RATIO 1.2 (1.0-2.1); ALBUMIN 3.8 g/dL (3.5-5.0); CALCIUM 10.3 mg/dL (8.4-10.2)
[2017-03-24 05:43] LABS: TROPONIN I 0.246 ng/mL (0.00-0.120)
[2017-03-24] MEDS: Pantoprazole 40 mg EC Tab PO SCH (08:44)
[2017-03-24] MEDS: Metoprolol Succinate 100 mg XL Tab PO SCH (08:44)
--- NOTE | 2017-03-24 10:32 | CARD ---
APPROVED REPORT EKG Measurement Heart [id number] <Conclusion> Normal sinus rhythm Normal ECG
--- NOTE | 2017-03-24 10:57 | CP.PCM.PN ---
Subjective - Date & Time of Evaluation Date of Evaluation: 03/24/17 Time of Evaluation: 09:15 - Subjective Subjective: NO CHEST PAIN OR SOB TODAY Objective - Vital Signs/Intake and Output Vital Signs (last 24 hours): Temp Pulse Resp BP Pulse Ox 98 F 71 17 130/79 97 03/24/17 08:00 03/24/17 08:00 03/24/17 08:00 03/24/17 08:00 03/24/17 08:00 Intake and Output: 03/24/17 03/24/17 06:59 18:59 Intake Total 812 16 Output Total 1100 Balance -288 16 - Medications Medications: Current Medications Aspirin (Ecotrin) 81 mg PO DAILY [facility] Last Admin: 03/24/17 08:44 Dose: 81 mg Atorvastatin Calcium (Lipitor) 40 mg PO DAILY [facility] Last Admin: 03/24/17 08:40 Dose: 40 mg Clopidogrel Bisulfate (Plavix) 75 mg PO DAILY [facility] Last Admin: 03/24/17 08:44 Dose: 75 mg Fenofibrate (Tricor) 145 mg PO DAILY [facility] Last Admin: 03/24/17 08:44 Dose: 145 mg Finasteride (Proscar) 5 mg PO DAILY [facility] Last Admin: 03/24/17 08:44 Dose: 5 mg Heparin Sodium (Porcine) (Heparin) 3,000 units IVP ONCE [facility]A PRN Reason: Protocol Stop: 03/24/17 10:52 Heparin Sodium/Dextrose (Heparin 25,000 Units/250ml In D5w) 25,000 units in 250 mls @ 10 mls/hr IV .Q24H [facility] PRN Reason: Protocol Heparin Sodium/Dextrose (Heparin 25,000 Units/250ml In D5w) 25,000 units in 250 mls @ 8 mls/hr IV .Q24H [facility] PRN Reason: Protocol Insulin Detemir (Levemir) 25 units SC [facility] Isosorbide Mononitrate (Imdur) 120 mg PO DAILY [facility] Last Admin: 03/24/17 08:40 Dose: 120 mg Metoprolol Succinate (Toprol Xl) 100 mg PO DAILY [facility] Last Admin: 03/24/17 08:44 Dose: 100 mg Morphine Sulfate (Morphine) 4 mg IVP Q4 PRN PRN Reason: Pain, severe (8-10) Last Admin: 03/24/17 03:42 Dose: 4 mg Morphine Sulfate (Morphine) 2 mg IVP Q4 PRN PRN Reason: Pain, moderate (4-7) Pantoprazole Sodium (Protonix Ec Tab) 40 mg PO DAILY [facility] Last Admin: 03/24/17 08:44 Dose: 40 mg Sitagliptin Phosphate (Januvia) 50 mg PO DAILY [facility] Last Admin: 03/24/17 08:40 Dose: 50 mg Zolpidem Tartrate (Ambien) 5 mg PO HS PRN PRN Reason: Sleep Last Admin: 03/23/17 22:23 Dose: 5 mg - Labs Labs: 03/24/17 04:20 03/24/17 04:20 PT 11.8 Seconds (9.8-13.1) 03/23/17 02:37 INR 1.0 (0.9-1.2) 03/23/17 02:37 APTT 43.1 Seconds (25.6-37.1) H D 03/24/17 09:30 - Respiratory Exam Respiratory Exam: Clear to Ausculation Bilateral - Cardiovascular Exam Cardiovascular Exam: REGULAR RHYTHM, +S1, +S2 - Extremities Exam Extremities Exam: Normal Inspection - Additional Findings Additional findings: EKG NSR, NO ACUTE CHANGES TROPONINS TRENDING DOWN WITH #3 0.26 AND #4 0.24 Assessment and Plan - Assessment and Plan (Free Text) Assessment: CAD WITH OLD IWMI AND LAD AND LT CX CORONARY STENTS-PATIENT ON OCTOBER 2016 CARDIAC CATH. PRESENT PAIN AND MILDLY ELEVATED TROPONINS DUE TO SMALL VESSEL DISEASE AND LVH WELL QUESTIONABLE COMPLIANCE WITH MEDICATIONS HYPERTENSION HYPERLIPIDEMIA DM Plan: CONTINUE O2, METOPROLOL, ISOSORBIDE MONONITRATE, ASPIRIN, CLOPIDOGREL, ATORVASTATIN, FENOFIBRATE, INSULIN AND JANUVIA HEPARIN CHANGED TO 5,000 U Q 12 HRS OK TO TRANSFER TO 4N ON TELEMETRY
--- NOTE | 2017-03-24 18:32 | CP.PCM.PN ---
Subjective - Date & Time of Evaluation Date of Evaluation: 03/24/17 Time of Evaluation: 10:00 - Subjective Subjective: Less chest pain , decreased sob Objective - Vital Signs/Intake and Output Vital Signs (last 24 hours): Temp Pulse Resp BP Pulse Ox 97.8 F 73 15 153/72 H 99 03/24/17 16:23 03/24/17 16:23 03/24/17 16:23 03/24/17 16:23 03/24/17 16:23 Intake and Output: 03/24/17 03/24/17 06:59 18:59 Intake Total 812 752 Output Total 1100 1100 Balance -288 -348 - Medications Medications: Current Medications Aspirin (Ecotrin) 81 mg PO DAILY [facility] Last Admin: 03/24/17 08:44 Dose: 81 mg Atorvastatin Calcium (Lipitor) 40 mg PO DAILY [facility] Last Admin: 03/24/17 08:40 Dose: 40 mg Clopidogrel Bisulfate (Plavix) 75 mg PO DAILY [facility] Last Admin: 03/24/17 08:44 Dose: 75 mg Fenofibrate (Tricor) 145 mg PO DAILY [facility] Last Admin: 03/24/17 08:44 Dose: 145 mg Finasteride (Proscar) 5 mg PO DAILY [facility] Last Admin: 03/24/17 08:44 Dose: 5 mg Heparin Sodium (Porcine) (Heparin) 5,000 units SC Q12 [facility] PRN Reason: Protocol Insulin Detemir (Levemir) 25 units SC HS [facility] Isosorbide Mononitrate (Imdur) 120 mg PO DAILY [facility] Last Admin: 03/24/17 08:40 Dose: 120 mg Metoprolol Succinate (Toprol Xl) 100 mg PO DAILY [facility] Last Admin: 03/24/17 08:44 Dose: 100 mg Morphine Sulfate (Morphine) 4 mg IVP Q4 PRN PRN Reason: Pain, severe (8-10) Last Admin: 03/24/17 03:42 Dose: 4 mg Morphine Sulfate (Morphine) 2 mg IVP Q4 PRN PRN Reason: Pain, moderate (4-7) Last Admin: 03/24/17 11:32 Dose: 2 mg Pantoprazole Sodium (Protonix Ec Tab) 40 mg PO DAILY [facility] Last Admin: 03/24/17 08:44 Dose: 40 mg Sitagliptin Phosphate (Januvia) 50 mg PO DAILY [facility] Last Admin: 03/24/17 08:40 Dose: 50 mg Zolpidem Tartrate (Ambien) 5 mg PO HS PRN PRN Reason: Sleep Last Admin: 03/23/17 22:23 Dose: 5 mg - Labs Labs: 03/24/17 04:20 03/24/17 04:20 PT 11.8 Seconds (9.8-13.1) 03/23/17 02:37 INR 1.0 (0.9-1.2) 03/23/17 02:37 APTT 43.1 Seconds (25.6-37.1) H D 03/24/17 09:30 - Head Exam Head Exam: ATRAUMATIC, NORMOCEPHALIC - Eye Exam Eye Exam: EOMI - ENT Exam ENT Exam: Mucous Membranes Moist - Neck Exam Neck Exam: Full ROM - Respiratory Exam Respiratory Exam: Clear to Ausculation Bilateral, NORMAL BREATHING PATTERN - Cardiovascular Exam Cardiovascular Exam: REGULAR RHYTHM - GI/Abdominal Exam GI & Abdominal Exam: Soft, Normal Bowel Sounds - Neurological Exam Neurological Exam: Awake Assessment and Plan - Assessment and Plan (Free Text) Assessment: CAD WITH OLD IWMI AND LAD AND LT CX CORONARY STENTS-PATIENT ON OCTOBER 2016 CARDIAC CATH. PRESENT PAIN AND MILDLY ELEVATED TROPONINS DUE TO SMANIIDMLL VESSEL DISEASE AND LVH WELL QUESTIONABLE COMPLIANCE WITH MEDICATIONS HYPERTENSION NIDDM Plan: Follow recommendations of cardiology.Continue current medications.
[2017-03-24 23:38] LABS: BARBITURATES, UR NEGATIVE (NEGATIVE); BENZODIAZEPINES, UR NEGATIVE (NEGATIVE); OPIATES, UR POSITIVE (NEGATIVE); PHENCYCLIDINE, UR NEGATIVE (NEGATIVE)
[2017-03-25] MEDS: Morphine 4 MG/ML VIAL IVP PRN (07:47)
[2017-03-25 08:34] VITALS: BP 144/82; RESP 18; TEMP 98.4; O2SAT 98
[2017-03-25] MEDS: Metoprolol Succinate 100 mg XL Tab PO SCH (08:52)
[2017-03-25] MEDS: Pantoprazole 40 mg EC Tab PO SCH (08:53)
--- NOTE | 2017-03-25 10:23 | CP.PCM.PN ---
Subjective - Date & Time of Evaluation Date of Evaluation: 03/25/17 Time of Evaluation: 09:30 - Subjective Subjective: NO CHEST PAIN OR SOB FEELS BETTER Objective - Vital Signs/Intake and Output Vital Signs (last 24 hours): Temp Pulse Resp BP Pulse Ox 98.4 F 66 18 144/82 98 03/25/17 08:00 03/25/17 09:00 03/25/17 08:00 03/25/17 08:52 03/25/17 08:00 Intake and Output: 03/25/17 03/25/17 06:59 18:59 Intake Total 300 Output Total 880 Balance -580 - Medications Medications: Current Medications Aspirin (Ecotrin) 81 mg PO DAILY [facility] Last Admin: 03/25/17 08:53 Dose: 81 mg Atorvastatin Calcium (Lipitor) 40 mg PO DAILY [facility] Last Admin: 03/25/17 08:53 Dose: 40 mg Clopidogrel Bisulfate (Plavix) 75 mg PO DAILY [facility] Last Admin: 03/25/17 08:52 Dose: 75 mg Fenofibrate (Tricor) 145 mg PO DAILY [facility] Last Admin: 03/25/17 08:53 Dose: 145 mg Finasteride (Proscar) 5 mg PO DAILY [facility] Last Admin: 03/25/17 08:53 Dose: 5 mg Heparin Sodium (Porcine) (Heparin) 5,000 units SC Q12 [facility] PRN Reason: Protocol Last Admin: 03/25/17 08:53 Dose: 5,000 units Insulin Detemir (Levemir) 25 units SC HS [facility] Last Admin: 03/24/17 21:17 Dose: 25 units Isosorbide Mononitrate (Imdur) 120 mg PO DAILY [facility] Last Admin: 03/25/17 08:53 Dose: 120 mg Metoprolol Succinate (Toprol Xl) 100 mg PO DAILY [facility] Last Admin: 03/25/17 08:52 Dose: 100 mg Morphine Sulfate (Morphine) 4 mg IVP Q4 PRN PRN Reason: Pain, severe (8-10) Last Admin: 03/25/17 07:47 Dose: 4 mg Morphine Sulfate (Morphine) 2 mg IVP Q4 PRN PRN Reason: Pain, moderate (4-7) Last Admin: 03/24/17 11:32 Dose: 2 mg Pantoprazole Sodium (Protonix Ec Tab) 40 mg PO DAILY [facility] Last Admin: 03/25/17 08:53 Dose: 40 mg Sitagliptin Phosphate (Januvia) 50 mg PO DAILY [facility] Last Admin: 03/25/17 08:53 Dose: 50 mg Zolpidem Tartrate (Ambien) 5 mg PO HS PRN PRN Reason: Sleep Last Admin: 03/24/17 23:30 Dose: 5 mg - Labs Labs: 03/24/17 04:20 03/24/17 04:20 PT 11.8 Seconds (9.8-13.1) 03/23/17 02:37 INR 1.0 (0.9-1.2) 03/23/17 02:37 APTT 43.1 Seconds (25.6-37.1) H D 03/24/17 09:30 - Respiratory Exam Respiratory Exam: Clear to Ausculation Bilateral - Cardiovascular Exam Cardiovascular Exam: REGULAR RHYTHM, +S1, +S2 - Extremities Exam Extremities Exam: Normal Inspection - Additional Findings 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
[2017-03-25 12:07] LABS: HEMOGLOBIN 10.1 g/dL (12.0-18.0); MEAN CELL VOLUME 77.4 fl (80.0-94.0); MEAN CORPUSCULAR HEMOGLOBIN 24.5 pg (27.0-31.0); MEAN CORPUSCULAR HGB CONC 31.7 g/dL (33.0-37.0); RBC 4.13 Mil/uL (4.40-5.90); RED CELL DISTRIBUTION WIDTH 18.5 % (11.5-14.5); WHITE BLOOD COUNT 5.5 K/uL (4.8-10.8)
[2017-03-25 20:28] VITALS: PULSE 91
--- NOTE | 2017-03-28 08:02 | PQF CHF ---
Dr. Lai pt has a history of congestive heart failure. Please specify below if known type. This form is a permanent part of the medical record Clarification of your documentation is requested to better reflect the severity of illness and intensity of treatment of your patient. Indicators present [x] Diagnosis of CHF and/or history of CHF [] BNP > 200 [] Imaging Finding of Pulmonary Edema /Pleural Effusions [] Fluid/Volume Overload [] Pitting edema [] Ejection Fraction < 40% (Indicative of Systolic Heart Failure) [] Ejection Fraction > 40% (Indicative of Diastolic Heart Failure) [] Dyspnea / Orthopenea / Paroxysmal Nocturnal Dyspnea [] Other: Location in the medical record that reflects the above clinical findings: [] Treatment Provided: [] PHYSICIAN'S RESPONSE Based on your medical judgment of the clinical indicators outlined above, are you treating this patient for a known or suspected: [] Acute CHF [] Systolic [] Diastolic [] Combined [] Chronic CHF [] Systolic [] Diastolic [] Combined [] Acute on Chronic CHF []Systolic [] Diastolic [] Combined [] CHF due hypertension [] Acute systolic []Chronic systolic [] Acute/ chronic systolic [] Other, please indicate: [] [] If Unable to Determine, please check the box, sign and date. Present On Admission (POA) Indicator: [] Present at the time of admission [X] Not present at the time of admission [] Clinically Undetermined In responding to this query, please exercise your independent professional judgment. The fact that a question is asked does not imply that any particular answer is desired or expected. Thank you for your clarification on this documentation. If you have any questions please call:[ ] * Thank you, [ ]Dulce Pereira outside sales account representative ROB
--- NOTE | 2017-03-29 09:18 | DS ---
REASON FOR ADMISSION: This is a 66 years old male with history of multiple medical problems presented to emergency room with chest pain and elevated troponin. COURSE OF HOSPITALIZATION: The patient was initially admitted to intensive care unit and he was started on heparin drip as well he was given double antiplatelet therapy. The patient's compliance was doubtful. The patient had cardiology consultation done by Dr. Lai. So far, he remained to be chest pain free and he was transferred off intensive care unit and the patient was seen by eeg technologist and he was transferred to the floor where he was chest pain free and he was willing to go home. Cardiology also cleared him and the patient needs to continue measuring the lipid profile as well as kidney function. The patient to have his blood work done within 2 weeks. FINAL DIAGNOSES: 1. Non-ST segment elevation myocardial infarction. 2. Hypertension. 3. Type 2 diabetes mellitus. The patient to follow with Dr. Santos as well as Dr. Lai. Morenita MD Tom
--- NOTE | 2017-04-01 14:33 | PN ---
This is Dr. Nayan Quintanilla dictating a critical care progress note on patient: Jake Cortes DOS 03/23/2017 Patient in ICU Bed 424. Time spent: 35 minutes. Patient is seen and evaluated at the bedside. Eventsn since admission reviewed and discussed with admitting physician Dr. Jackson. 66 year old male with a Hx of diabetes, hypertension , coronary artery disease status post stent to RCA and left circumflex and atrial fibrillation. Pt has had cardiac catheterization in Oct 2016. He is noted to have patent stents. Admitted with pain in the epigastric area ,RUQ and RLQ. He was seen by cardiology consult and he current recommendations were noted. Patients remains alert and awake and follows commands appropriately. Complaining of pain in epigastric area. No fever,chills, cough or SOB. Vitals: Temperature 98 HR: 71, irregular. Respiratory rate:20 BP 120/76 Pulse oximetry 100%. Intake and Output noted.Weight 250 lbs. Examination HEENT: Pupils reactive. Conjunctiva pink, sclera: white. Neck: Supple. Chest: Bilateral breath sounds, clear to auscultation. . Heart: Irregular, no S3, S4 or gallops. Abdomen: Bowel sounds present. Soft, liver and spleen not palpable . Bladder not distended. Ext: No clubbing, edema, or cyanosis. Peripheral pulses intact, reduced in intensity. Nuero: Non focal. Current Medications: (185)1mg PO daily. LIPITOR 40mg daily. PLAVIX (191) daily. TRICOR 145 mg PO daily HEPARIN in IV infusion at 1,000 units/hour LEVEMIR 50 UNITS sUBq ISOSORBIDE [id number] mg po daily METOPROLOL 100 MG Shazia daily MORPHINE FORMULA IV q4 prn for pain PROTONIX 40 PO daily JANUVIA 15 mg PO daily LabData WBC: 8.5 Hemoglobin:11.2 Hematocrit: 34.9. Platelet Count: 221. PT: 11.8 INR: 1 PTT: 65.1 SMA: 7 . Sodium: 139 Potassium: 4. Cortisol: 104 CO2: 25 BUN: 24 Creatine: 1.5 Random glucose:128 Calcium .10.5 Troponin: 0.2580, 0.3270 EtOh level: less than 10 Microbiology: no growth reported. Radiography ECG: Normal sinus rhythm with a sinus arrhythmia. Left atrial enlargement. _No ST-T abnormality. Chest X-ray: No active disease. EKG report pending. Abdominal US: Report pending Impression: Chest pain with epigastric pain. Elevated troponin. Hx of coronary artery disease status post a stent in the RAC and left circumflex. Repeat (358-360) with patent stents. Elevated troponin in the setting of ischemia and/or renal insufficiency. Acute on chronic kidney disease. Endocrinology: Diabetes with hyperglycemia on Januvia and (395.2) with regular insulin coverage . Anemia chronic disease, stable. Abdominal pain. Suspect gastritis onproton pump inhibitor. Follow up with abdominal US. Hyperlipidemia on Lipitor and Fenofibrate. Continue DVT prophylaxis , patient currently on IV Heparin. Nayan Quintanilla MD
--- NOTE | 2017-04-07 15:28 | CP.CCUPN ---
CCU Subjective - Physician Review Events Since Last Encounter (Free Text): 04/07/17 15:26 Patient is seen and evaluated at the bedside. Events since admission reviewed and discussed with admitting physician Dr. Jackson. Patient in ICU Bed 424. Time spent: 35 minutes. 04/07/17 15:27 Subjective (Free Text): 04/07/17 15:26 66 y/o male with a Hx of DM, HTN, CAD S/P stent to RCA and left circumflex and atrial fibrillation. Patient has had cardiac catheterization in October 2016. He is noted to have patent stents. Admitted with pain in the epigastric area, RUQ and RLQ. He was seen by cardiology consult and the current recommendations were noted. Patients remains alert, awake and follows commands appropriately. Complaining of pain in epigastric area. No fever, chills, cough or SOB. Critical Care Time Spent (in minutes): 35 CCU Objective - Vital Signs / Intake & Output Vital Signs (Last 4 hours): Temperature: 98 HR: 71, irregular. Respiratory rate: 20, thoracoabdominal BP: 120/76 Pulse Ox: 100%. Intake and Output noted. Weight: 250 lbs. - Physical Exam Pupils: Positive for: PERRL (Conjunctiva pink. sclera are white.) Neck: Positive for: Other (Supple) Respiratory/Chest: Positive for: Clear to Auscultation (Bilateral breath sounds) Cardiovascular: Positive for: Irregular Rhythm, Other (No S3, S4). Negative for : Gallop Abdomen: Positive for: Normal Bowel Sounds, Other (Soft). Negative for: Distention, Mass/Organomegaly Lower Extremity: Positive for: NORMAL PULSES (peripherally, reduced in intensity ), Other (No clubbing). Negative for: Edema, Cyanosis Neurological: Positive for: Other (Non-focal) - Medications Active Medications: ___ 1 mg PO daily. LIPITOR 40 mg daily. PLAVIX 4 mg daily. TRICOR 145 mg PO daily. PROSCAR 5 mg PO daily. HEPARIN in IV infusion at 1,000 units/hour. LEVEMIR 50 UNITS Sub-q. ISOSORBIDE [id number] mg po daily. METOPROLOL 100 MG Shazia daily. MORPHINE FORMULA IV q4 prn for pain. PROTONIX 40 mg PO daily. JANUVIA 15 mg PO daily. - Patient Studies Lab Studies: WBC: 8.5 Hemoglobin:11.2 Hematocrit: 34.9 Platelet Count: 22. PT: 11.8 INR: 1 PTT: 65.1 SMA: 7. Sodium: 139 Potassium: 4 Chloride: 104 CO2: 25 BUN: 24 Creatine: 1.5 Random glucose: 208 Calcium: 10.5 Troponin: 0.2580, 0.3270 EtOH level: less than 10 Microbiology: no growth reported. Radiology Impressions: CXR: No active disease. Abdominal US: Report pending. EKG/Cardiology Studies: ECG: NSR with a sinus arrhythmia. Left atrial enlargement. Non-specific ST abnormality. Fingerstick Blood Sugar Results: 212 Review of Systems - Constitutional Constitutional: absent: Fever, Chills - Respiratory Respiratory: absent: Cough, Dyspnea - Gastrointestinal Gastrointestinal: Abdominal Pain ( in the epigastric area, RUQ and RLQ) Critical Care Progress Note - Nutrition Nutrition: Nutrition Category Date Time Status Heart Healthy Diet [DIET] Diets 03/23/17 Breakfast Active Assessment/Plan - Assessment and Plan (Free Text) Assessment: Chest pain with epigastric pain. Elevated troponin. Hx of CAD S/P a stent in the RAC and left circumflex. Repeat cath in October with patent stents. Elevated troponin in the setting of ischemia and/or renal insufficiency. Acute on chronic kidney disease. Endocrinology: Diabetes with hyperglycemia on Januvia and accu-check with regular insulin coverage. Anemia chronic disease, stable. Abdominal pain. Suspect gastritis on proton pump inhibitor. Follow up with abdominal US. Hyperlipidemia on Lipitor and Fenofibrate. Continue DVT prophylaxis. Patient currently on IV Heparin.
== END 2017-03-25 13:28 | disposition home or self-care (01) | DRG 282 ==
LOC: H.ER 01:41 → H.ERHOLD 02:42 → H.ICU/CCU 04:12 → H.TEL 03-25 00:21
PROVIDERS: ADMIT Internal Medicine; ATTEND Internal Medicine
DX: I21.4 Non-ST elevation (NSTEMI) myocardial infarction (principal); E10.22 Type 1 diabetes mellitus with diabetic chronic kidney disease; E10.65 Type 1 diabetes mellitus with hyperglycemia; I25.10 Atherosclerotic heart disease of native coronary artery without angina pectoris; I48.91 Unspecified atrial fibrillation; Z95.5 Presence of coronary angioplasty implant and graft; E78.00 Pure hypercholesterolemia, unspecified; E78.5 Hyperlipidemia, unspecified; N18.9 Chronic kidney disease, unspecified; I25.2 Old myocardial infarction; I12.9 Hypertensive chronic kidney disease with stage 1 through stage 4 chronic kidney disease, or unspecified chronic kidney disease; D63.8 Anemia in other chronic diseases classified elsewhere

== ENCOUNTER 2017-04-13 06:16 | Observation (INO) | payer OTHER ==
[2017-04-13 06:16] VITALS: BMI 41.3
--- NOTE | 2017-04-13 06:45 | ED PDOC ---
HPI: Chest Pain Time Seen by Provider: 04/13/17 06:29 Chief Complaint (Nursing): Chest Pain Chief Complaint (Provider): chest pain History Per: Patient, EMS History/Exam Limitations: no limitations Onset/Duration Of Symptoms: Hrs Current Symptoms Are (Timing): Better Quality: "Pain" Nitro Therapy Administered: 2, Per EMS, Partial Relief Additional Complaint(s): The patient is a 66yo male, extensive past medical history including chronic pain, chf, hypertension, DM, chronic kidney disease, a-fib, NSTEMI, surgical history of tracheostomy and reversal, cholecystectomy, is brought to the ED by EMS for evaluation of chest pain since 1899 yesterday. Patient was given 2x nitro sub-lingual en route to the ED and patient admits to taking Aspirin but is unsure of dosage and time of dosage. Patient reports his chest pain is still present but has improved compared to prior; denies any shortness of breath, fever, chills, cough, bilateral extremity swelling. He offers no additional medical complaints. Past Medical History Reviewed: Historical Data, Nursing Documentation, Vital Signs Vital Signs: Last Vital Signs Temp 97.6 F 04/14/17 00:02 Pulse 70 04/14/17 00:02 Resp 20 04/14/17 00:02 BP 170/90 H 04/14/17 00:02 Pulse Ox 99 04/14/17 00:02 - Medical History PMH: Anemia, Arthritis, Atrial Fibrillation (? ), CAD, Cardia Arrhythmia ( atrial fib), CHF, Diabetes (type II), Gall Bladder Disease, HTN, Hypercholesterolemia, Peripheral Edema, Chronic Kidney Disease (renal insufficiency) - Surgical History Surgical History: Cholecystectomy, Coronary Stent - Family History Family History: States: MS (mother at age 70) Denies: Unknown Family Hx - Social History Ex-Smoker (has not smoked in the last 12 months): Yes Alcohol: None Drugs: Denies - Immunization History Hx Tetanus Toxoid Vaccination: No Hx Influenza Vaccination: No Hx Pneumococcal Vaccination: No - Home Medications Home Medications: Ambulatory Orders Medication Instructions Recorded Finasteride [Proscar] 5 mg PO DAILY 09/03/15 Fenofibrate,Micronized [Lofibra] 134 mg PO DAILY 12/04/15 Pantoprazole Sodium [Protonix] 40 mg PO DAILY 12/04/15 Insulin Aspart, Recombinant 20 unit SC BID 10/07/16 [Novolog] Insulin Detemir [Levemir] 50 unit SC HS 10/07/16 Clopidogrel [Plavix] 75 mg PO DAILY #30 tab 10/08/16 Atorvastatin [Lipitor] 40 mg PO DAILY #30 tab 10/30/16 Isosorbide Mononitrate [Imdur] 60 mg PO DAILY #30 tab 10/30/16 SITagliptin [Januvia] 1 tab PO DAILY 12/15/16 Losartan Potassium 1 tab PO DAILY 03/23/17 Aspirin [Adult Low Dose Aspirin EC] 81 mg PO DAILY #30 tablet. 03/25/17 Metoprolol Succinate [Toprol XL] 50 mg PO DAILY 04/13/17 - Allergies Allergies/Adverse Reactions: Allergies Allergy/AdvReac Type Severity Reaction Status Date / Time No Known Allergies Allergy Verified 12/20/16 15:41 Review of Systems ROS Statement: Except As Marked, All Systems Reviewed And Found Negative Constitutional: Negative for: Fever, Chills Cardiovascular: Positive for: Chest Pain Respiratory: Negative for: Cough, Shortness of Breath Physical Exam - Reviewed Nursing Documentation Reviewed: Yes Vital Signs Reviewed: Yes - Physical Exam Appears: Positive for: Well, Non-toxic, No Acute Distress Head Exam: Positive for: ATRAUMATIC, NORMAL INSPECTION, NORMOCEPHALIC Skin: Positive for: Normal Color, Warm, DRY Eye Exam: Positive for: Normal appearance Neck: Positive for: Normal, Supple Cardiovascular/Chest: Positive for: Regular Rate, Rhythm Respiratory: Positive for: Normal Breath Sounds. Negative for: Respiratory Distress Gastrointestinal/Abdominal: Positive for: Normal Exam, Soft. Negative for: Tenderness Extremity: Positive for: Normal ROM Neurologic/Psych: Positive for: Alert, Oriented - Laboratory Results Result Diagrams: 04/13/17 06:42 04/13/17 06:42 - ECG ECG: Positive for: Interpreted By Me, Viewed By Me Interpretation Of ECG: Sinus Rhythm Occaisonal PVC's Rate of 100 O2 Sat by Pulse Oximetry: 95 Medical Decision Making Medical Decision Making: Time: 628 Impression: Chest pain Plan: -- CMP -- Troponin -- CBC -- Chest x-ray Reassess Time: 6[address] Patient signed out to Dr. Augustin pending ED workup. Scribe Attestation: Documented by Adrianna Weber acting as a scribe for Pamela Pearson MD. Provider Attestation: All medical record entries made by the Scribe were at my direction and personally dictated by me. I have reviewed the chart and agree that the record accurately reflects my personal performance of the history, physical exam, medical decision making, and the department course for this patient. I have also personally directed, reviewed, and agree with the discharge instructions and disposition. Disposition - Clinical Impression Clinical Impression: Non-STEMI (non-ST elevated myocardial infarction) - Patient ED Disposition Is Patient to be Admitted: Transfer of Care - Disposition Disposition: Transfer of Care Disposition Time: 07:00 Condition: GUARDED Patient Signed Over To: Jaida Augustin Handoff Comments: pending ED workup, labs imaging and dispo
[2017-04-13 06:48] LABS: BASO % 0.6 % (0.0-2.0); EOS # 0.2 K/uL (0.0-0.7); EOS % 2.9 % (0.0-4.0); HEMATOCRIT 33.5 % (35.0-51.0); LYMPH # 2.3 K/uL (1.0-4.3); LYMPH % 31.4 % (20.0-40.0); MEAN CELL VOLUME 77.8 fl (80.0-94.0); MEAN CORPUSCULAR HEMOGLOBIN 24.6 pg (27.0-31.0); MEAN CORPUSCULAR HGB CONC 31.6 g/dL (33.0-37.0); MONO # 0.7 K/uL (0.0-0.8); MONO % 9.2 % (0.0-10.0); NEUT # 4.1 K/uL (1.8-7.0); NEUT % 55.9 % (50.0-75.0); NRBC % 0.1 % (0.0-0.0); WHITE BLOOD COUNT 7.4 K/uL (4.8-10.8)
[2017-04-13 07:02] LABS: ALB/GLOB RATIO 1.3 (1.0-2.1); BILIRUBIN,TOTAL 0.4 mg/dl (0.2-1.3); CALCIUM 11.3 mg/dL (8.4-10.2); TOTAL PROTEIN 7.8 G/DL (6.3-8.2)
[2017-04-13 07:29] LABS: TROPONIN I 0.481 ng/mL (0.00-0.120)
--- NOTE | 2017-04-13 08:04 | ED PDOC ---
- Laboratory Results Result Diagrams: 04/13/17 06:42 04/13/17 06:42 - ECG O2 Sat by Pulse Oximetry: 98 Pulse Ox Interpretation: Normal - Physician Consult Information Time Consulting Physican Contacted: 08:14 Physician Contacted: Salazar Lai Outcome Of Conversation: Case discussed, will consult. Disposition - Clinical Impression Clinical Impression: Non-STEMI (non-ST elevated myocardial infarction) - POA Present On Arrival: None - Disposition Disposition: Admitted as In-Patient Disposition Time: 08:00 Condition: GUARDED Forms: [employer] (Turkmen) Addendum Addendum: 04/13/17 07:[address] Pt signed out by Dr[address] Pearson pending labs.
--- NOTE | 2017-04-13 10:15 | RAD ---
PROCEDURE: CHEST RADIOGRAPH, 1 VIEW HISTORY: chest pain COMPARISON: 03/23/2017. FINDINGS: LUNGS: Clear. PLEURA: No pneumothorax or pleural fluid seen. CARDIOVASCULAR: Cardiomegaly. No evidence of acute, significant cardiovascular disease. OSSEOUS STRUCTURES: No significant abnormalities. VISUALIZED UPPER ABDOMEN: Normal. OTHER FINDINGS: None. IMPRESSION: No active disease. No preliminary report provided by emergency department personnel.
--- NOTE | 2017-04-13 10:28 | CP.PCM.CON ---
History of Present Illness - History of Present Illness History of Present Illness: THE PATIENT IS A 66 YEAR OLD MALE KNOWN TO ME FROM [facility] ADMISSIONS AND MY OFFICE PRACTICE. HE HAS A HISTORY OF CAD WITH AN IWMI A FEW YEARS AGO FOLLOWED BY A CARDIAC CATH AND THE INSERTION OF 2 CORONARY STENTS. HE ALSO HAS A HISTORY OF HYPERTENSION, HYPERLIPIDEMIA, TYPE I DM, RENAL INSUFFICIENCY AND BPH. HE ALSO HAD RECENT ANAL FISTULA SURGERY. HE WAS ADMITTED TO [facility] FOR CHEST PAIN A FEW MONTHS AGO WITH MILD TROPONIN ELEVATION AND UNDERWENT A CARDIAC CATH AT [facility] BY DR Dayo VILLEGAS THAT FOUND THE TWO STENTS PATENT BUT HE HAD SMALL VESSEL DISEASE AND THE MILDLY ELEVATED TROPONINS WERE BELIEVED TO BE FROM THE SMALL VESSEL DISEASE AND THE RENAL INSUFFICIENCY. HE WAS ADMITTED TO [facility] A FEW WEEKS AGO FOR THE SAME REASON. HE NOW COMPLAINS OF CHEST PAIN FOR A COUPLE OF DAYS AND WENT TO THE ER AND WAS ADMITTED AGAIN. HE STATES THAT THE CHEST PAIN IMPROVED WITH MEDICATIONS. THE TROPONIN WAS MILDLY ELEVATED AGAIN SO CARDIOLOGY WAS CALLED TO SEE HIM AGAIN. Past Patient History - Infectious Disease Hx of Infectious Diseases: None - Past Medical History & Family History Past Medical History?: Yes - Past Social History Alcohol: None Drugs: Denies - CARDIAC Hx Atrial Fibrillation: Yes (? ) Hx Cardia Arrhythmia: Yes (atrial fib) Hx Congestive Heart Failure: Yes Hx Hypercholesterolemia: Yes Hx Hypertension: Yes Hx Peripheral Edema: Yes - PULMONARY Other/Comment: S/P tracheostomy and reversal due to throat infection - NEUROLOGICAL Hx Neurological Disorder: No - HEENT Hx HEENT Problems: No - RENAL Hx Chronic Kidney Disease: Yes (renal insufficiency) - ENDOCRINE/METABOLIC Hx Diabetes Mellitus Type 1: Yes - HEMATOLOGICAL/ONCOLOGICAL Hx Anemia: Yes - INTEGUMENTARY Hx Dermatological Problems: Yes (scrotal lesions due to anal drainage per pt) - MUSCULOSKELETAL/RHEUMATOLOGICAL Hx Arthritis: Yes - GASTROINTESTINAL Hx Gall Bladder Disease: Yes - GENITOURINARY/GYNECOLOGICAL Hx Genitourinary Disorders: Yes Hx Prostate Problems: Yes - PSYCHIATRIC Hx Psychophysiologic Disorder: No Hx Substance Use: No - SURGICAL HISTORY Hx Cholecystectomy: Yes Hx Coronary Stent: Yes - ANESTHESIA Hx Anesthesia: Yes Hx Anesthesia Reactions: No Hx Malignant Hyperthermia: No Meds Allergies/Adverse Reactions: Allergies Allergy/AdvReac Type Severity Reaction Status Date / Time No Known Allergies Allergy Verified 12/20/16 15:41 - Medications Medications: Current Medications Aspirin (Ecotrin) 81 mg PO DAILY JAZMINE Atorvastatin Calcium (Lipitor) 40 mg PO DAILY [facility] Clopidogrel Bisulfate (Plavix) 75 mg PO DAILY [facility] Fenofibrate (Tricor) 145 mg PO DAILY [facility] Finasteride (Proscar) 5 mg PO DAILY [facility] Home Med (Fenofibrate,Micronized [Lofibra]) 134 mg PO DAILY [facility] Insulin Detemir (Levemir) 50 units SC HS JAZMINE Insulin Human Regular (Humulin R) 0 units SC ACHS JAZMINE PRN Reason: Protocol Isosorbide Mononitrate (Imdur) 60 mg PO DAILY [facility] Losartan Potassium (Cozaar) 50 mg PO DAILY [facility] Metoprolol Succinate (Toprol Xl) 50 mg PO DAILY [facility] Pantoprazole Sodium (Protonix Ec Tab) 40 mg PO DAILY [facility] Sitagliptin Phosphate (Januvia) 25 mg PO DAILY [facility] Physical Exam - Respiratory Exam Respiratory Exam: Clear to Auscultation Bilateral - Cardiovascular Exam Cardiovascular Exam: REGULAR RHYTHM, +S1, +S2 - Extremities Exam Extremities exam: Positive for: normal inspection - Additional Findings Additional findings: EKG NSR, NO ACUTE CHANGES FIRST TROPONIN WAS O.48 CR 1.6 GFR DECREASED AT 43 Results - Vital Signs Recent Vital Signs: Last Vital Signs Temp 98.1 F 04/13/17 06:23 Pulse 87 04/13/17 07:47 Resp 19 04/13/17 07:47 BP 130/87 04/13/17 07:47 Pulse Ox 98 04/13/17 08:14 - Labs Result Diagrams: 04/13/17 06:42 04/13/17 06:42 Assessment & Plan - Assessment and Plan (Free Text) Assessment: CAD WITH CHEST PAIN THAT IMPROVED WITH TREATMENT AND MILDLY ELEVATED TROPONIN WITHOUT ACUTE EKG CHANGES-ELEVATED TROPONIN IS AGAIN MOST PROBABLY FROM SMALL VESSEL DISEASE AND RENAL INSUFFICIENCY HYPERTENSION HYPERLIPIDEMIA DIABETES MELLITUS RENAL INSUFFICIENCY Plan: THE PATIENT WAS ADMITTED TO N ON TELEMETRY O2, METOPROLOL, LOSARTAN, ISOSORBIDE MONONITRATE, ASPIRIN, PLAVIX, HEPARIN, ATORVASTATIN, FENOFIBRATE, INSULIN THE PATIENT WAS DISCUSSED AGAIN THIS MORNING WITH DR Dayo VILLEGAS WHO DOESN'T BELIEVE A REPEAT CARDIAC CATHETERIZATION IS INDICATED AT THIS TIME THE EKG DOEN'T SHOW ANY NEW CHANGES AND THE TROPONIN ELEVATION IS MILD WHICH AGAIN IS MOST PROBABLY FROM HIS SMALL VESSEL DISEASE AND THE RENAL INSUFFICIENCY RECOMMEND RENAXA ADDITION TO HIS MEDICAL REGIMEN UPON DISCHARGE-IT IS NOT ON THE [facility] FORMULARY
[2017-04-13] MEDS: Pantoprazole 40 mg EC Tab PO SCH (10:36)
[2017-04-13] MEDS: Metoprolol Succinate 50 mg XL Tab PO SCH (10:36)
[2017-04-13] MEDS: Insulin Regular 100 units/ml SC SCH ×3 (13:21→22:43)
[2017-04-13] MEDS ORDERED: INSULIN DETEMIR 50 UNIT SC SCH (22:00)
[2017-04-13] MEDS: Insulin Detemir 100 Units/ml Inj SC SCH ×2 (22:00→22:42)
[2017-04-14] MEDS ORDERED: Oxycodone/Acetaminophen 5/325 mg Tab PO PRN (00:33)
[2017-04-14] MEDS: Insulin Regular 100 units/ml SC SCH ×2 (06:44→12:45)
[2017-04-14 06:55] LABS: HEMATOCRIT 32.1 % (35.0-51.0); MEAN CELL VOLUME 77.4 fl (80.0-94.0); MEAN CORPUSCULAR HEMOGLOBIN 24.6 pg (27.0-31.0); MEAN CORPUSCULAR HGB CONC 31.8 g/dL (33.0-37.0); RED CELL DISTRIBUTION WIDTH 18.9 % (11.5-14.5); WHITE BLOOD COUNT 5.8 K/uL (4.8-10.8)
[2017-04-14 07:06] LABS: BLOOD UREA NITROGEN 21 mg/dl (9-20); CALCIUM 11.1 mg/dL (8.4-10.2); CARBON DIOXIDE 25 mmol/L (22-30); CHLORIDE 105 mmol/L (98-107); GFR AFRICAN-AMERICAN > 60; GLUCOSE,RANDOM 121 mg/dL (75-110); POTASSIUM 4.2 MMOL/L (3.6-5.0); SODIUM 139 mmol/l (132-148)
[2017-04-14 08:15] VITALS: RESP 18; O2SAT 98
[2017-04-14] MEDS: Metoprolol Succinate 50 mg XL Tab PO SCH (08:37)
[2017-04-14] MEDS: Pantoprazole 40 mg EC Tab PO SCH (08:37)
[2017-04-14] MEDS ORDERED: Enoxaparin 40 mg Syringe SC SCH (09:00)
[2017-04-14] MEDS ORDERED: FENOFIBRATE MICRONIZED 134 MG PO SCH (09:00)
--- NOTE | 2017-04-14 12:47 | CP.PCM.PN ---
Subjective - Date & Time of Evaluation Date of Evaluation: 04/14/17 Time of Evaluation: 10:00 - Subjective Subjective: NO CHEST PAIN OR SOB TODAY FEELS GOOD Objective - Vital Signs/Intake and Output Vital Signs (last 24 hours): Temp Pulse Resp BP Pulse Ox 97.7 F 81 18 152/88 H 98 04/14/17 08:15 04/14/17 09:00 04/14/17 08:15 04/14/17 08:37 04/14/17 08:15 - Medications Medications: Current Medications Acetaminophen (Tylenol 325mg Tab) 650 mg PO Q6 PRN PRN Reason: Pain, moderate (4-7) Last Admin: 04/14/17 00:04 Dose: 650 mg Aspirin (Ecotrin) 81 mg PO DAILY [facility] Last Admin: 04/14/17 08:36 Dose: 81 mg Atorvastatin Calcium (Lipitor) 40 mg PO DAILY [facility] Last Admin: 04/14/17 08:36 Dose: 40 mg Clopidogrel Bisulfate (Plavix) 75 mg PO DAILY [facility] Last Admin: 04/14/17 08:36 Dose: 75 mg Enoxaparin Sodium (Lovenox) 40 mg SC DAILY [facility] PRN Reason: Protocol Last Admin: 04/14/17 08:36 Dose: 40 mg Fenofibrate (Tricor) 145 mg PO DAILY [facility] Last Admin: 04/14/17 08:37 Dose: 145 mg Finasteride (Proscar) 5 mg PO DAILY [facility] Last Admin: 04/14/17 08:36 Dose: 5 mg Insulin Detemir (Levemir) 50 units SC [facility] Last Admin: 04/13/17 22:00 Dose: Not Given Insulin Human Regular (Humulin R) 0 units SC [facility] PRN Reason: Protocol Last Admin: 04/14/17 06:44 Dose: Not Given Isosorbide Mononitrate (Imdur) 60 mg PO DAILY [facility] Last Admin: 04/14/17 08:36 Dose: 60 mg Losartan Potassium (Cozaar) 50 mg PO DAILY [facility] Last Admin: 04/14/17 08:36 Dose: 50 mg Metoprolol Succinate (Toprol Xl) 50 mg PO DAILY [facility] Last Admin: 04/14/17 08:37 Dose: 50 mg Oxycodone/Acetaminophen (Percocet 5/325 Mg Tab) 1 tab PO Q6 PRN PRN Reason: Pain, moderate (4-7) Stop: 04/17/17 00:34 Pantoprazole Sodium (Protonix Ec Tab) 40 mg PO DAILY [facility] Last Admin: 04/14/17 08:37 Dose: 40 mg Sitagliptin Phosphate (Januvia) 25 mg PO DAILY [facility] Last Admin: 04/14/17 08:38 Dose: 25 mg - Labs Labs: 04/14/17 05:40 04/14/17 05:40 - Respiratory Exam Respiratory Exam: Clear to Ausculation Bilateral - Cardiovascular Exam Cardiovascular Exam: REGULAR RHYTHM, +S1, +S2 - Additional Findings Additional findings: SHOP ROUTER NSR TROPONINS TRENDING DOWN Assessment and Plan - Assessment and Plan (Free Text) Assessment: CAD WITH ANGINA ON ADMISSION AND PATIENT IS PAIN FREE NOW-TROPONIN INCREASE IN MY OPINION IS DUE TO SMALL VESSEL DISEASE AND RENAL INSUFFICIENCY HYPERTENSION HYPERLIPIDEMIA DM Plan: CONTINUE METOPROLOL, LOSARTAN, ASPIRIN, PLAVIX, ATORVASTATIN, FENOFIBRATE OK TO DISCHARGE PATIENT FROM CARDIAC [facility] RECOMMEND RENAXA ADDITION OUT PATIENT OV WITH ME IN ONE TO TWO WEEKS
[2017-04-14 13:03] VITALS: BP 137/81; PULSE 72; TEMP 98
--- NOTE | 2017-04-15 01:02 | HP ---
HISTORY OF PRESENT ILLNESS: This is a 66-year-old male with multiple medical problems and admission to [facility]. The patient presented to emergency room with symptoms of chest pain for 1 day duration. The patient has history of coronary artery disease with anterior wall myocardial infarction, old inferior wall myocardial infarction and the patient had a cardiac cath and insertion of 2 coronary stents. He also has history of hypertension, hyperlipidemia. The patient was admitted for chest pain a few months ago with mild troponin elevation and he underwent cardiac cath at [facility] by Dr. Walker Hawkins. They found the two stents patent, but he had small vessel disease and mildly elevated troponin, believed to be from the small vessel disease. The patient denied to have any shortness of breath or palpitations,and other review of systems is negative. PAST MEDICAL HISTORY: Coronary artery disease, chronic kidney disease, hypertension, hypercholesterolemia, chronic perianal fistula. FAMILY HISTORY: Noncontributory. SOCIAL HISTORY: No history of smoking, EtOH or substance abuse. REVIEW OF SYSTEMS: Negative except for perianal pain at the site of chronic fistula. ALLERGIES: NO KNOWN ALLERGIES. HOME MEDICATIONS: Include Imdur 60 mg daily, metoprolol 60 mg daily, atorvastatin 40 mg daily, Januvia 50 mg daily, Protonix 40 mg daily, Losartan 50 mg daily, Levemir at bedtime, NovoLog 20 units twice a day, Proscar 5 mg daily, fenofibrate 134 mg daily, Plavix 75 mg daily, and aspirin 81 mg daily. PHYSICAL EXAMINATION: GENERAL: The patient was in bed, not in any cardiopulmonary distress. VITAL SIGNS: Blood pressure 169/95, temperature 97.9, respiratory rate 20 and pulse 80. HEENT: Pupils are equal reactive to light. Normal appearing mucosa of the conjunctivae, oropharyngeal, and nasal membrane mucosa. NECK: Supple. No JVD. No carotid bruit. No lymph nodes. No thyromegaly. CHEST AND LUNGS: Bilateral symmetrical expansion. Good air exchange. No rales or rhonchi. CARDIOVASCULAR: PMI not localized. S1 and S2. No additional sounds. ABDOMEN: Normoactive bowel sounds. No tenderness. No organomegaly. No masses. EXTREMITIES: No cyanosis, no clubbing,no edema. 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 No neurological deficit could be appreciated. ASSESSMENT: 1. Chest pain with mildly elevated troponin and history of coronary artery disease secondary to small vessel disease versus chronic kidney disease. 2. Hypertension. 3. Hypercholesterolemia. 4. Type 2 diabetes mellitus. 5. Chronic kidney disease, stage III. 6. Anemia of chronic inflammation. PLAN: Cardiology consult and follow recommendations. Discussed the patient's condition with cardiologest who was prescribed Ranexa and continue current medications including tight control of blood pressure and blood sugar. The patient was admitted for observation to telemetry unit and to monitor troponin over 24 hours. [facility] MD Tom ROB
== END 2017-04-14 14:30 | disposition home or self-care (01) ==
LOC: H.ER 06:16 → H.ERHOLD 07:59 → INTOOBSV 07:59 → H.TEL 13:41
PROVIDERS: ADMIT Internal Medicine; ATTEND Internal Medicine
DX: I25.10 Atherosclerotic heart disease of native coronary artery without angina pectoris (principal); D64.9 Anemia, unspecified; E10.22 Type 1 diabetes mellitus with diabetic chronic kidney disease; E78.00 Pure hypercholesterolemia, unspecified; E78.5 Hyperlipidemia, unspecified; I13.0 Hypertensive heart and chronic kidney disease with heart failure and stage 1 through stage 4 chronic kidney disease, or unspecified chronic kidney disease; I25.2 Old myocardial infarction; I48.91 Unspecified atrial fibrillation; I50.9 Heart failure, unspecified; I73.9 Peripheral vascular disease, unspecified; N18.3 Chronic kidney disease, stage 3 (moderate); N40.0 Benign prostatic hyperplasia without lower urinary tract symptoms; Z79.02 Long term (current) use of antithrombotics/antiplatelets; Z79.4 Long term (current) use of insulin; Z79.82 Long term (current) use of aspirin; Z79.84 Long term (current) use of oral hypoglycemic drugs; Z87.891 Personal history of nicotine dependence; Z90.49 Acquired absence of other specified parts of digestive tract; Z95.5 Presence of coronary angioplasty implant and graft; G89.29 Other chronic pain; K82.9 Disease of gallbladder, unspecified; M19.90 Unspecified osteoarthritis, unspecified site; N28.9 Disorder of kidney and ureter, unspecified
CPT/HCPCS: 36415; 71010; 80048; 80053; 82948; 83880; 84484; 85025; 85027; 96372; 96374; 99285; G0378; J1644; J1650

== ENCOUNTER 2017-06-04 14:36 | Inpatient (IN) | payer OTHER ==
[2017-06-04 14:37] VITALS: BMI 41.3
[2017-06-04] MEDS ORDERED: Nitroglycerin 2% Ointment Foilpak UD TOP STA (15:16)
--- NOTE | 2017-06-04 15:37 | ED PDOC ---
HPI: Chest Pain Time Seen by Provider: 06/04/17 14:59 Chief Complaint (Nursing): Chest Pain Chief Complaint (Provider): chest pain History Per: Patient Onset/Duration Of Symptoms: Days (1), Sudden Onset, Persistent Current Symptoms Are (Timing): Still Present Quality: Pressure, "Pain" Associated Symptoms: denies: Nausea, Dyspnea, Diaphoresis, Syncope Additional Complaint(s): Also c/o LEFT groin pain, similar to previous episodes due to hernia. No abdominal pain, nausea, vomiting, diarrhea, loss of appetite. PMD: Dr Santos. Past Medical History Reviewed: Historical Data, Nursing Documentation, Vital Signs Vital Signs: Last Vital Signs Temp 97.9 F 06/05/17 13:13 Pulse 70 06/05/17 13:13 Resp 20 06/05/17 13:13 BP 148/90 06/05/17 13:13 Pulse Ox 100 06/05/17 13:13 - Medical History PMH: Anemia, Arthritis, Atrial Fibrillation (? ), CAD, Cardia Arrhythmia ( atrial fib), CHF, Diabetes (type II), Gall Bladder Disease, HTN, Hypercholesterolemia, Peripheral Edema, Chronic Kidney Disease (renal insufficiency) - Surgical History Surgical History: Cholecystectomy, Coronary Stent - Family History Family History: States: [place] (mother at age 70) Denies: Unknown Family Hx - Social History Current smoker - smoking cessation education provided: No - Immunization History Hx Tetanus Toxoid Vaccination: No Hx Influenza Vaccination: No Hx Pneumococcal Vaccination: No - Home Medications Home Medications: Ambulatory Orders Medication Instructions Recorded Finasteride [Proscar] 5 mg PO DAILY 09/03/15 Fenofibrate,Micronized [Lofibra] 134 mg PO DAILY 12/04/15 Clopidogrel [Plavix] 75 mg PO DAILY #30 tab 10/08/16 Losartan Potassium 50 mg PO DAILY 03/23/17 Aspirin [Adult Low Dose Aspirin EC] 81 mg PO DAILY #30 tablet. 03/25/17 Ergocalciferol (Vitamin D2) 50,000 unit PO QWK 06/04/17 [Vitamin D2] Liraglutide [Victoza 2-Cliff] 1.2 mg SC DAILY 06/04/17 Metoprolol Succinate [Toprol XL] 50 mg PO DAILY 06/04/17 Ranolazine [Ranexa] 500 mg PO Q12H 06/04/17 SITagliptin [Januvia] 100 mg PO DAILY 06/04/17 Simvastatin [Zocor] 40 mg PO DAILY 06/04/17 - Allergies Allergies/Adverse Reactions: Allergies Allergy/AdvReac Type Severity Reaction Status Date / Time No Known Allergies Allergy Verified 06/04/17 14:44 DEEP Risk Score for UA/NSTEMI - DEEP Risk Score Age > 64: YES 3 or more CAD Risk Factors: YES Known CAD (Stenosis greater than 50%): YES Aspirin use in past 7 days: YES Severe Angina: NO DEEP Score: 4 Risk %: 20% Review of Systems ROS Statement: Except As Marked, All Systems Reviewed And Found Negative (and as per HPI) Constitutional: Negative for: Fever, Chills Cardiovascular: Positive for: Chest Pain Genitourinary Male: Positive for: Scrotal Pain Physical Exam - Reviewed Nursing Documentation Reviewed: Yes Vital Signs Reviewed: Yes - Physical Exam Appears: Positive for: Non-toxic, No Acute Distress Head Exam: Positive for: ATRAUMATIC, NORMOCEPHALIC Skin: Positive for: Warm, Dry Eye Exam: Positive for: EOMI, PERRL ENT: Positive for: Normal ENT Inspection, Pharynx Is (clear) Neck: Positive for: Painless ROM, Supple Cardiovascular/Chest: Positive for: Regular Rate, Rhythm. Negative for: Murmur Respiratory: Positive for: Normal Breath Sounds. Negative for: Respiratory Distress Gastrointestinal/Abdominal: Positive for: Soft. Negative for: Tenderness, Mass , Distended, Guarding, Rebound Male Genital Exam: Positive for: normal genitalia. Negative for: hernia mass, inguinal tenderness Back: Positive for: Normal Inspection. Negative for: L CVA Tenderness, R CVA Tenderness Extremity: Positive for: Normal ROM. Negative for: Pedal Edema, Deformity Lymphatic: Negative for: Adenopathy Neurologic/Psych: Positive for: Alert. Negative for: Motor/Sensory Deficits - Laboratory Results Result Diagrams: 06/04/17 15:35 06/04/17 15:35 - ECG ECG: Positive for: Interpreted By Me ECG Rhythm: Positive for: Sinus Rhythm, Nonspecific Changes O2 Sat by Pulse Oximetry: 98 Pulse Ox Interpretation: Normal - Radiology X-Ray Interpretation: No Acute Disease - Progress ED Course And Treament: Pt with chest pain and cardiac risk factors. Needs hospitalization for serial enzymes to r/o ACS, pending ER workup. Disposition - Clinical Impression Clinical Impression: Chest pain Discussed With : Tawana Santos Doctor Will See Patient In The: Hospital Counseled Patient/Family Regarding: Studies Performed, Diagnosis - Disposition Disposition Time: 15:30 Condition: SERIOUS - Pt Status Changed To: Hospital Disposition Of: Observation - POA Present On Arrival: None
[2017-06-04] MEDS ORDERED: Nitroglycerin 2% Ointment Foilpak UD TOP ONE (15:47)
[2017-06-04 15:48] LABS: BASO # 0.1 K/uL (0.0-0.2); BASO % 1.1 % (0.0-2.0); EOS # 0.1 K/uL (0.0-0.7); EOS % 2.1 % (0.0-4.0); HEMATOCRIT 34.6 % (35.0-51.0); LYMPH # 1.5 K/uL (1.0-4.3); MEAN CELL VOLUME 81.6 fl (80.0-94.0); MEAN CORPUSCULAR HEMOGLOBIN 25.3 pg (27.0-31.0); MONO # 0.6 K/uL (0.0-0.8); MONO % 9.5 % (0.0-10.0); NEUT # 4.1 K/uL (1.8-7.0); NEUT % 64.3 % (50.0-75.0); NRBC % 0.1 % (0.0-0.0); RED CELL DISTRIBUTION WIDTH 19.6 % (11.5-14.5); WHITE BLOOD COUNT 6.4 K/uL (4.8-10.8)
[2017-06-04 15:56] LABS: ALB/GLOB RATIO 1.3 (1.0-2.1); ALCOHOL SERUM < 10 mg/dl (0-10); ALKALINE PHOSPHATASE 33 U/L (38-126); ALT/SGPT 26 U/L (21-72); AST/SGOT 23 U/L (17-59); BILIRUBIN,TOTAL 0.5 mg/dl (0.2-1.3); BLOOD UREA NITROGEN 27 mg/dl (9-20); CARBON DIOXIDE 23 mmol/L (22-30); CHLORIDE 107 mmol/L (98-107); GFR AFRICAN-AMERICAN > 60; GLUCOSE,RANDOM 127 mg/dL (75-110); MAGNESIUM 1.6 MG/DL (1.6-2.3); PHOSPHOROUS 2.9 mg/dl (2.5-4.5); POTASSIUM 4.2 MMOL/L (3.6-5.0); SODIUM 144 mmol/l (132-148); TOTAL PROTEIN 7.4 G/DL (6.3-8.2)
[2017-06-04 16:13] LABS: PARTIAL THROMBOPLASTIN TIME 29.5 Seconds (25.6-37.1)
--- NOTE | 2017-06-04 17:31 | RAD ---
HISTORY: Chest pain. COMPARISON: Comparison chest dated 04/13/2017. TECHNIQUE: Chest PA and lateral FINDINGS: LUNGS: Poor inspiration with low lung volumes, crowded bronchovascular markings and mild bibasilar atelectasis. Persistent slight elevation right hemidiaphragm likely exacerbated due to poor inspiration PLEURA: No significant pleural effusion identified. No pneumothorax apparent. CARDIOVASCULAR: Heart remains enlarged. OSSEOUS STRUCTURES: Multilevel degenerative spondylosis of the thoracic spine VISUALIZED UPPER ABDOMEN: Apparent metallic clips right upper quadrant gliotic consistent prior cholecystectomy. OTHER FINDINGS: None. IMPRESSION: Poor inspiration with low lung volumes, crowded bronchovascular markings and mild bibasilar atelectasis. Persistent slight elevation right hemidiaphragm likely exacerbated due to poor inspiration
[2017-06-04] MEDS ORDERED: Patient's Own Med (Ranolazine [Ranexa] 500 MG) PO SCH (23:15)
[2017-06-04] MEDS ORDERED: Metoprolol Succinate 50 mg XL Tab PO STA (23:22)
[2017-06-04] MEDS ORDERED: Oxycodone/Acetaminophen 5/325 mg Tab PO PRN (23:27)
[2017-06-05] MEDS: Oxycodone/Acetaminophen 5/325 mg Tab PO PRN ×3 (00:07→17:07)
[2017-06-05] MEDS: Insulin Regular 100 units/ml SC SCH ×4 (06:20→23:15)
[2017-06-05] MEDS ORDERED: Influenza Vaccine 18yr & older 0.5 ML/45 MCG SYR IM ONE (09:00)
[2017-06-05] MEDS ORDERED: FENOFIBRATE MICRONIZED 134 MG PO SCH (09:00)
[2017-06-05] MEDS: Metoprolol Succinate 50 mg XL Tab PO SCH (09:01)
--- NOTE | 2017-06-05 09:57 | CP.PCM.CON ---
History of Present Illness - History of Present Illness History of Present Illness: Surgery: Dr. Reilly CC: chest pain Reason for consult: anal fistula HPI: Patient is a 66 y/o male currently admitted for chest pain, r/o ACS, complains of noticing some drainage w/ bowel movements from the rectum. States he also has sharp pain with bowel movements. He describes the stool at hard, no blood. He denies n/v/f/c. Per prior documentation, patient here in December for anal fistulectomy. PMH: Anemia, Arthritis, Atrial Fibrillation CAD, CHF, Diabetes, Gall Bladder Disease, HTN, Hypercholesterolemia, Peripheral Edema, CKD PSH: ann marie, coronary stents, anal fistulectomy Review of Systems - Review of Systems All systems: reviewed and no additional remarkable complaints except Review of Systems: unless stated in HPI Past Patient History - Infectious Disease Hx of Infectious Diseases: None - Past Medical History & Family History Past Medical History?: Yes - Past Social History Smoking Status: Former Smoker - CARDIAC Hx Atrial Fibrillation: Yes Hx Cardia Arrhythmia: Yes Hx Congestive Heart Failure: Yes Hx Hypercholesterolemia: Yes Hx Hypertension: Yes Hx Peripheral Edema: Yes - PULMONARY Other/Comment: S/P tracheostomy and reversal due to throat infection - NEUROLOGICAL Hx Neurological Disorder: No - HEENT Hx HEENT Problems: No - RENAL Hx Chronic Kidney Disease: Yes (renal insufficiency) - ENDOCRINE/METABOLIC Hx Diabetes Mellitus Type 2: Yes - HEMATOLOGICAL/ONCOLOGICAL Hx Anemia: Yes - INTEGUMENTARY Hx Dermatological Problems: Yes (scrotal lesions due to anal drainage per pt) - MUSCULOSKELETAL/RHEUMATOLOGICAL Hx Falls: No - GASTROINTESTINAL Hx Gall Bladder Disease: Yes - GENITOURINARY/GYNECOLOGICAL Hx Genitourinary Disorders: Yes Hx Prostate Problems: Yes - PSYCHIATRIC Hx Substance Use: No - SURGICAL HISTORY Hx Cholecystectomy: Yes Hx Coronary Stent: Yes - ANESTHESIA Hx Anesthesia: Yes Hx Anesthesia Reactions: No Hx Malignant Hyperthermia: No Meds Allergies/Adverse Reactions: Allergies Allergy/AdvReac Type Severity Reaction Status Date / Time No Known Allergies Allergy Verified 06/04/17 14:44 - Medications Medications: Current Medications Aspirin (Ecotrin) 81 mg PO DAILY [facility] Last Admin: 06/05/17 09:01 Dose: 81 mg Atorvastatin Calcium (Lipitor) 20 mg PO DAILY [facility] Last Admin: 06/05/17 09:03 Dose: 20 mg Clopidogrel Bisulfate (Plavix) 75 mg PO DAILY [facility] Last Admin: 06/05/17 09:01 Dose: 75 mg Ergocalciferol (Drisdol 50,000 Intl Units Cap) 1 cap PO MON [facility] Fenofibrate (Tricor) 145 mg PO DAILY [facility] Last Admin: 06/05/17 09:02 Dose: 145 mg Finasteride (Proscar) 5 mg PO DAILY [facility] Last Admin: 06/05/17 09:02 Dose: 5 mg Heparin Sodium (Porcine) (Heparin) 5,000 units SC Q12 [facility] PRN Reason: Protocol Last Admin: 06/05/17 09:03 Dose: 5,000 units Home Med (Liraglutide [Victoza 2-Cliff]) 1.2 mg SC DAILY [facility] Home Med (Ranolazine [Ranexa]) 500 mg PO Q12H [facility] Insulin Human Regular (Humulin R) 0 units SC ACCU-CHECK [facility] PRN Reason: Protocol Last Admin: 06/05/17 06:20 Dose: Not Given Losartan Potassium (Cozaar) 50 mg PO DAILY [facility] Last Admin: 06/05/17 09:02 Dose: 50 mg Metoprolol Succinate (Toprol Xl) 50 mg PO DAILY [facility] Last Admin: 06/05/17 09:01 Dose: 50 mg Oxycodone/Acetaminophen (Percocet 5/325 Mg Tab) 1 tab PO Q6 PRN PRN Reason: Pain, moderate (4-7) Stop: 06/07/17 23:28 Oxycodone/Acetaminophen (Percocet 5/325 Mg Tab) 2 tab PO Q6 PRN PRN Reason: Pain, severe (8-10) Stop: 06/07/17 23:28 Last Admin: 06/05/17 09:10 Dose: 2 tab Sitagliptin Phosphate (Januvia) 100 mg PO DAILY [facility] Last Admin: 06/05/17 09:02 Dose: 100 mg Physical Exam - Constitutional Appears: Non-toxic, No Acute Distress - Head Exam Head Exam: ATRAUMATIC, NORMOCEPHALIC - Eye Exam Eye Exam: EOMI, Normal appearance - ENT Exam ENT Exam: Mucous Membranes Moist - Respiratory Exam Respiratory Exam: NORMAL BREATHING PATTERN. absent: Respiratory Distress - Cardiovascular Exam Cardiovascular Exam: REGULAR RHYTHM. absent: Tachycardia - GI/Abdominal Exam GI & Abdominal Exam: Soft. absent: Distended, Tenderness - Rectal Exam Rectal Exam: Hemorrhoids. absent: Bloody Stool Additional comments: nontender andi anal area. no drainage. posterior anal tag noted - Extremities Exam Extremities exam: Positive for: normal inspection. Negative for: calf tenderness - Neurological Exam Neurological exam: Alert, Oriented x3 - Psychiatric Exam Psychiatric exam: Normal Affect, Normal Mood Results - Vital Signs Recent Vital Signs: Last Vital Signs Temp 97.5 F L 06/05/17 08:24 Pulse 66 06/05/17 09:02 Resp 20 06/05/17 08:24 BP 162/92 H 06/05/17 09:02 Pulse Ox 99 06/05/17 08:24 - Labs Result Diagrams: 06/04/17 15:35 06/04/17 15:35 Labs: Laboratory Results - last 24 hr 06/04/17 06/04/17 06/04/17 15:35 15:35 15:35 WBC 6.4 RBC 4.23 L Hgb 10.7 L Hct 34.6 L MCV 81.6 D MCH 25.3 L MCHC 31.0 L RDW 19.6 H Plt Count 182 MPV 11.0 Neut % (Auto) 64.3 Lymph % (Auto) 23.0 Dixon % (Auto) 9.5 Eos % (Auto) 2.1 Baso % (Auto) 1.1 Neut # 4.1 Lymph # 1.5 Dixon # 0.6 Eos # 0.1 Baso # 0.1 PT 11.3 INR 1.1 APTT 29.5 Sodium 144 Potassium 4.2 Chloride 107 Carbon Dioxide 23 Anion Gap 18 BUN 27 H Creatinine 1.4 Est GFR ( Amer) > 60 Est GFR (Non-Af Amer) 50 POC Glucose (mg/dL) Random Glucose 127 H Calcium 11.0 H Phosphorus 2.9 Magnesium 1.6 Total Bilirubin 0.5 AST 23 ALT 26 Alkaline Phosphatase 33 L Troponin I 0.0490 Total Protein 7.4 Albumin 4.3 Globulin 3.2 Albumin/Globulin Ratio 1.3 Urine Opiates Screen Urine Methadone Screen Ur Barbiturates Screen Ur Phencyclidine Scrn Ur Amphetamines Screen U Benzodiazepines Scrn U Oth Cocaine Metabols U Cannabinoids Screen Alcohol, Quantitative < 10 06/04/17 06/04/17 06/04/17 15:42 16:00 21:53 WBC RBC Hgb Hct MCV MCH MCHC RDW Plt Count MPV Neut % (Auto) Lymph % (Auto) Dixon % (Auto) Eos % (Auto) Baso % (Auto) Neut # Lymph # Dixon # Eos # Baso # PT INR APTT Sodium Potassium Chloride Carbon Dioxide Anion Gap BUN Creatinine Est GFR ( Amer) Est GFR (Non-Af Amer) POC Glucose (mg/dL) 132 H 158 H Random Glucose Calcium Phosphorus Magnesium Total Bilirubin AST ALT Alkaline Phosphatase Troponin I Total Protein Albumin Globulin Albumin/Globulin Ratio Urine Opiates Screen Negative Urine Methadone Screen Negative Ur Barbiturates Screen Negative Ur Phencyclidine Scrn Negative Ur Amphetamines Screen Negative U Benzodiazepines Scrn Negative U Oth Cocaine Metabols Negative U Cannabinoids Screen Negative Alcohol, Quantitative 06/05/17 06/05/17 06/05/17 00:15 05:30 05:48 WBC RBC Hgb Hct MCV MCH MCHC RDW Plt Count MPV Neut % (Auto) Lymph % (Auto) Dixon % (Auto) Eos % (Auto) Baso % (Auto) Neut # Lymph # Dixon # Eos # Baso # PT INR APTT Sodium Potassium Chloride Carbon Dioxide Anion Gap BUN Creatinine Est GFR ( Amer) Est GFR (Non-Af Amer) POC Glucose (mg/dL) 91 Random Glucose Calcium Phosphorus Magnesium Total Bilirubin AST ALT Alkaline Phosphatase Troponin I 0.0390 0.0460 Total Protein Albumin Globulin Albumin/Globulin Ratio Urine Opiates Screen Urine Methadone Screen Ur Barbiturates Screen Ur Phencyclidine Scrn Ur Amphetamines Screen U Benzodiazepines Scrn U Oth Cocaine Metabols U Cannabinoids Screen Alcohol, Quantitative Assessment & Plan - Assessment and Plan (Free Text) Assessment: 66 y/o male admitted for chest pain w/ hx of anal fistula s/p fistulectomy Plan: -recommend high fiber diet -colace -sitz baths BID -can f/u outpatient prn for anal fistula -d/w Dr. Von URIOSTEGUIsadi PGY3
--- NOTE | 2017-06-05 13:24 | CARD ---
APPROVED REPORT EKG Measurement Heart [id number] ID [id number] <Conclusion> Sinus rhythm with premature supraventricular complexes Possible Left atrial enlargement Borderline ECG
[2017-06-05] MEDS ORDERED: Digoxin 250 mcg (0.25 mg) Tab PO ONE ×2 (14:30→18:15)
[2017-06-06] MEDS: Oxycodone/Acetaminophen 5/325 mg Tab PO PRN ×4 (02:18→23:57)
--- NOTE | 2017-06-06 03:36 | HP ---
HISTORY OF PRESENT ILLNESS: The patient is seen today 06/05/2017. He is a 66 years old male with history of multiple medical problems, presented to emergency room with symptoms of chest pain. The patient stated that he had the pain whether he is walking or sometime is at rest. The patient was previously admitted with similar presentations and he was seen by Dr. Lai. The patient was started on Ranexa. The patient stated that he is compliant of his medication. REVIEW OF SYSTEMS: Other review of systems are negative except for perianal pain at the site of previous fistulectomy done by Dr. Longoria on December of 2016. The patient do not have any other symptoms. ALLERGIES: NO KNOWN ALLERGIES. MEDICATIONS: Home medications include simvastatin 40 mg daily, Januvia 100 mg daily, Ranexa 500 mg every 12 hours, metoprolol 50 mg daily, losartan 50 mg daily, Victoza 1.2 mg subcutaneously daily, Proscar 5 mg daily, fenofibrate 134 mg daily, Plavix 75 mg daily, and aspirin 81 mg daily. SOCIAL HISTORY: Denies smoking, EtOH, or substance abuse. FAMILY HISTORY: Noncontributory. PAST MEDICAL HISTORY: Hypertension; coronary artery disease; type 2 diabetes mellitus; perianal fistula, status post fistulectomy. PHYSICAL EXAMINATION: GENERAL: The patient is in bed with no cardiopulmonary distress. VITAL SIGNS: Blood pressure 162/92, temperature 97.5, respiratory rate 20, and pulse 66. HEENT: Pupils are equal and reactive to light. Normal-appearing mucosa of the conjunctivae, oropharyngeal, and nasal membrane mucosa. NECK: Supple. No JVD. No carotid bruit. No lymph node. No thyromegaly. CHEST AND LUNGS: Bilateral symmetrical expansion. Good air exchange. No rales. No rhonchi. CARDIOVASCULAR SYSTEM: PMI not localized. S1 and S2. No additional sounds. ABDOMEN: Normoactive bowel sounds. No tenderness. No organomegaly. No masses. EXTREMITIES: No cyanosis. No clubbing. No edema. CENTRAL NERVOUS SYSTEM: Alert, awake, and oriented x3. No neurological deficit could be appreciated. ASSESSMENT: 1. Chest pain, rule out myocardial infarction. 2. Hypertension. 3. Type 2 diabetes mellitus. 4. Perianal fistula, status post fistulectomy with recurrent perianal pain. PLAN: Cardiology consult and follow recommendations. Surgical consult. Resume home medications, include pain medicine. [facility] MD Tom
[2017-06-06] MEDS: Insulin Regular 100 units/ml SC SCH ×4 (06:43→23:03)
[2017-06-06] MEDS: Metoprolol Succinate 50 mg XL Tab PO SCH (08:47)
--- NOTE | 2017-06-06 09:37 | CARD ---
APPROVED REPORT EKG Measurement Heart [id number] <Conclusion> Atrial fibrillation Abnormal ECG
--- NOTE | 2017-06-06 09:39 | CARD ---
APPROVED REPORT EKG Measurement Heart [id number] <Conclusion> Atrial fibrillation Inferior infarct, age undetermined Abnormal ECG
--- NOTE | 2017-06-06 12:44 | CP.PCM.CON ---
History of Present Illness - History of Present Illness History of Present Illness: THE PATIENT IS A 66 YEAR OLD MALE WITH A HISTORY OF CAD, HYPERTENSION, HYPERLIPIDEMIA, DIABETES MELLITUS AND RENAL INSUFFICIENCY. HE HAD AN IWMI SEVERAL YEARS AGO AND HAD A CARDIAC CATHETERIZATION AND TWO CORONARY STENTS WERE INSERTED. HE WAS ADMITTED TO [facility] SEVERAL MONTHS AGO FOR CHEST PAIN AND HAD A CARDIAC CATHETERIZATION AT [facility] BY DR VILLEGAS WHO FOUND THAT THE CORONARY STENTS WERE PATENT BUT THAT THE PATIENT HAD SMALL VESSEL DISEASE. HE WAS NOW ADMITTED TO [facility] ON 06/04/17 FOR CHEST PAIN AND PAIN FROM HIS RECENT ANAL FISTULA SURGERY. HE STATES THAT HE HAS BEEN CHEST PAIN FREE SINCE 06/05/17 AM. HE WAS IN SINUS RHYTHM AND WENT INTO ATRIAL FIBRILLATION YESTERDAY. CARDIOLOGY WAS NOW ASKED TO SEE HIM. Past Patient History - Infectious Disease Hx of Infectious Diseases: None - Past Medical History & Family History Past Medical History?: Yes - Past Social History Smoking Status: Former Smoker - CARDIAC Hx Atrial Fibrillation: Yes (? ) Hx Cardia Arrhythmia: Yes (atrial fib) Hx Congestive Heart Failure: Yes Hx Hypercholesterolemia: Yes Hx Hypertension: Yes Hx Peripheral Edema: Yes - PULMONARY Other/Comment: S/P tracheostomy and reversal due to throat infection - NEUROLOGICAL Hx Neurological Disorder: No - HEENT Hx HEENT Problems: No - RENAL Hx Chronic Kidney Disease: Yes (renal insufficiency) - ENDOCRINE/METABOLIC Hx Diabetes Mellitus Type 2: Yes - HEMATOLOGICAL/ONCOLOGICAL Hx Anemia: Yes - INTEGUMENTARY Hx Dermatological Problems: Yes (scrotal lesions due to anal drainage per pt) - MUSCULOSKELETAL/RHEUMATOLOGICAL Hx Arthritis: Yes - GASTROINTESTINAL Hx Gall Bladder Disease: Yes - GENITOURINARY/GYNECOLOGICAL Hx Genitourinary Disorders: Yes Hx Prostate Problems: Yes - PSYCHIATRIC Hx Substance Use: No - SURGICAL HISTORY Hx Cholecystectomy: Yes Hx Coronary Stent: Yes - ANESTHESIA Hx Anesthesia: Yes Hx Anesthesia Reactions: No Hx Malignant Hyperthermia: No Meds Allergies/Adverse Reactions: Allergies Allergy/AdvReac Type Severity Reaction Status Date / Time No Known Allergies Allergy Verified 06/04/17 14:44 - Medications Medications: Current Medications Apixaban (Eliquis) 2.5 mg PO BID [facility] PRN Reason: Protocol Aspirin (Ecotrin) 81 mg PO DAILY [facility] Last Admin: 06/06/17 08:47 Dose: 81 mg Atorvastatin Calcium (Lipitor) 20 mg PO DAILY [facility] Last Admin: 06/06/17 08:48 Dose: 20 mg Clopidogrel Bisulfate (Plavix) 75 mg PO DAILY [facility] Last Admin: 06/06/17 08:47 Dose: 75 mg Docusate Sodium (Colace) 100 mg PO BID [facility] Last Admin: 06/06/17 08:47 Dose: 100 mg Ergocalciferol (Drisdol 50,000 Intl Units Cap) 1 cap PO MON [facility] Fenofibrate (Tricor) 145 mg PO DAILY [facility] Last Admin: 06/06/17 08:47 Dose: 145 mg Finasteride (Proscar) 5 mg PO DAILY [facility] Last Admin: 06/06/17 08:48 Dose: 5 mg Heparin Sodium (Porcine) (Heparin) 5,000 units SC Q12 [facility] PRN Reason: Protocol Last Admin: 06/06/17 08:49 Dose: 5,000 units Home Med (Liraglutide [Victoza 2-Cliff]) 1.2 mg SC DAILY [facility] Home Med (Ranolazine [Ranexa]) 500 mg PO Q12H [facility] Insulin Human Regular (Humulin R) 0 units SC ACCU-CHECK [facility] PRN Reason: Protocol Last Admin: 06/06/17 06:43 Dose: Not Given Isosorbide Mononitrate (Imdur Er) 90 mg PO DAILY [facility] Last Admin: 06/06/17 08:49 Dose: 90 mg Losartan Potassium (Cozaar) 50 mg PO DAILY [facility] Last Admin: 06/06/17 08:48 Dose: 50 mg Metoprolol Succinate (Toprol Xl) 50 mg PO DAILY [facility] Last Admin: 06/06/17 08:47 Dose: 50 mg Oxycodone/Acetaminophen (Percocet 5/325 Mg Tab) 1 tab PO Q6 PRN PRN Reason: Pain, moderate (4-7) Stop: 06/07/17 23:28 Oxycodone/Acetaminophen (Percocet 5/325 Mg Tab) 2 tab PO Q6 PRN PRN Reason: Pain, severe (8-10) Stop: 06/07/17 23:28 Last Admin: 06/06/17 10:33 Dose: 2 tab Sitagliptin Phosphate (Januvia) 100 mg PO DAILY [facility] Last Admin: 06/06/17 08:47 Dose: 100 mg Physical Exam - Respiratory Exam Respiratory Exam: Clear to Auscultation Bilateral - Cardiovascular Exam Cardiovascular Exam: Irregular Rhythm, +S1, +S2 - Extremities Exam Extremities exam: Positive for: normal inspection - Additional Findings Additional findings: EKG ON ADMISSION SHOW SINUS RHYTHM AND ON OLD IWMI EKG YESTERDAY AFTERNOON SHOWED ATRIAL FIBRILLATION WITH MVR AND DIGOXIN WAS STARTED RESIDENCE LIFE DIRECTOR NOW SHOWS ATRIAL FIBRILLATION WITH MVR DIGOXIN LEVEL 0.7 K+ 4.2 BUN/CR 27/1.4 TROPONINS NORMAL Results - Vital Signs Recent Vital Signs: Last Vital Signs Temp 97.6 F 06/06/17 12:24 Pulse 57 L 06/06/17 12:24 Resp 18 06/06/17 12:24 BP 138/84 06/06/17 12:24 Pulse Ox 100 06/06/17 12:24 - Labs Result Diagrams: 06/04/17 15:35 06/04/17 15:35 Labs: Laboratory Results - last 24 hr 06/05/17 06/05/17 06/06/17 16:05 21:08 05:16 POC Glucose (mg/dL) 118 H 184 H 146 H Digoxin 06/06/17 06/06/17 05:30 10:54 POC Glucose (mg/dL) 201 H Digoxin 0.7 L Assessment & Plan - Assessment and Plan (Free Text) Assessment: CAD WITH CHEST PAIN-PATIENT IS NOW CHEST PAIN FREE AND THE TROPONINS ARE NORMAL- THE PATIENTS WAS SUPPOSED TO BE ON ISOSORBIDE MONONITRATE 90 MGS DAILY AND IT WAS NOT ON HIS HOME LIST OF MEDICATIONS AND THIS MAY HAVE CAUSED THE CHEST PAIN NEW ONSET ATRIAL FIBRILLATION HYPERTENSION HYPERLIPIDEMIA DM RENAL INSUFFICIENCY Plan: CONTINUE O2, LOSARTAN, METOPROLOL, ISOSORBIDE MONONITRATE, ASPIRIN, CLOPIDOGREL , ATORVASTATIN, FENOFIBRATE ELIQUIS AND DIGOXIN STARTED FOR ATRIAL FIBRILLATION CONTINUE TO MONITOR ON 4N ON TELEMETRY
[2017-06-06] MEDS ORDERED: Digoxin 0.05 mg/mL Elixir 5mL PO ONE (13:30)
--- NOTE | 2017-06-07 01:57 | PN ---
DATE: 06/06/2017 SUBJECTIVE: He is not in any cardiopulmonary distress. The patient developed atrial fibrillation last night and he was started on Eliquis by cardiology. PHYSICAL EXAMINATION VITAL SIGNS: Blood pressure 115/78, temperature 98.1, respiratory rate 18 and pulse 57. HEENT: Pupils equal, reactive to light. Normal-appearing mucosa, the conjunctivae, oropharyngeal nasal membrane mucosa. NECK: Supple. No JVD. No carotid bruit. No lymph nodes. No thyromegaly. CHEST AND LUNGS: Bilateral symmetrical expansion. Good air exchange. No rales, no rhonchi. CARDIOVASCULAR SYSTEMS: PMI not localized. S1 and S2. No additional sounds. ABDOMEN: Normal active bowel sounds. No tenderness. No organomegaly, no masses. EXTREMITIES: No cyanosis, no clubbing, no edema. DOSIER OPERATOR: Alert, awake and oriented x2. No neurological deficits could be appreciated. ASSESSMENT: 1. Chest pain, MRI is ruled out. 2. Atrial fibrillation with controlled ventricular rate. 3. Type 2 diabetes mellitus. 4. Chronic kidney disease. 5. Perianal fistula. PLAN: Continue current medications including Eliquis 2.5 mg twice a day. Follow surgical recommendation regarding the perianal fistula. Tawana Santos MD
[2017-06-07] MEDS: Insulin Regular 100 units/ml SC SCH ×2 (06:50→13:40)
[2017-06-07] MEDS ORDERED: Ergocalciferol 50,000 Intl Units Cap PO SCH (09:00)
[2017-06-07] MEDS: Oxycodone/Acetaminophen 5/325 mg Tab PO PRN (09:06)
[2017-06-07] MEDS: Metoprolol Succinate 50 mg XL Tab PO SCH (09:08)
--- NOTE | 2017-06-07 14:43 | CP.PCM.PN ---
Subjective - Date & Time of Evaluation Date of Evaluation: 06/07/17 Time of Evaluation: 13:00 - Subjective Subjective: NO NEW COMPLAINTS OF CHEST PAIN NO PALPITATIONS PATIENT NOW TOLD ME THAT HE RAN OUT OF BOTH ISOSORBIDE AND RENAXA AND DIDN'T KNOW THAT HE NEEDED TO REFILL THEM Objective - Vital Signs/Intake and Output Vital Signs (last 24 hours): Temp Pulse Resp BP Pulse Ox 97.4 F L 59 L 18 145/89 100 06/07/17 12:55 06/07/17 12:55 06/07/17 12:55 06/07/17 12:55 06/07/17 12:55 Intake and Output: 06/07/17 06/07/17 06:59 18:59 Intake Total 400 Balance 400 - Medications Medications: Current Medications Apixaban (Eliquis) 2.5 mg PO BID [facility] PRN Reason: Protocol Last Admin: 06/07/17 09:07 Dose: 2.5 mg Aspirin (Ecotrin) 81 mg PO DAILY [facility] Last Admin: 06/07/17 09:09 Dose: 81 mg Atorvastatin Calcium (Lipitor) 20 mg PO DAILY [facility] Last Admin: 06/07/17 09:09 Dose: 20 mg Clopidogrel Bisulfate (Plavix) 75 mg PO DAILY [facility] Last Admin: 06/07/17 09:07 Dose: 75 mg Docusate Sodium (Colace) 100 mg PO BID [facility] Last Admin: 06/07/17 09:08 Dose: 100 mg Ergocalciferol (Drisdol 50,000 Intl Units Cap) 1 cap PO MON [facility] Last Admin: 06/07/17 09:09 Dose: 1 cap Fenofibrate (Tricor) 145 mg PO DAILY [facility] Last Admin: 06/07/17 09:08 Dose: 145 mg Finasteride (Proscar) 5 mg PO DAILY [facility] Last Admin: 06/07/17 09:08 Dose: 5 mg Home Med (Liraglutide [Victoza 2-Cliff]) 1.2 mg SC DAILY [facility] Home Med (Ranolazine [Ranexa]) 500 mg PO Q12H [facility] Insulin Human Regular (Humulin R) 0 units SC ACCU-CHECK [facility] PRN Reason: Protocol Last Admin: 06/07/17 13:40 Dose: 3 units Isosorbide Mononitrate (Imdur Er) 90 mg PO DAILY [facility] Last Admin: 06/07/17 09:09 Dose: 90 mg Losartan Potassium (Cozaar) 50 mg PO DAILY [facility] Last Admin: 06/07/17 09:08 Dose: 50 mg Metoprolol Succinate (Toprol Xl) 50 mg PO DAILY [facility] Last Admin: 06/07/17 09:08 Dose: 50 mg Oxycodone/Acetaminophen (Percocet 5/325 Mg Tab) 1 tab PO Q6 PRN PRN Reason: Pain, moderate (4-7) Stop: 06/07/17 23:28 Oxycodone/Acetaminophen (Percocet 5/325 Mg Tab) 2 tab PO Q6 PRN PRN Reason: Pain, severe (8-10) Stop: 06/07/17 23:28 Last Admin: 06/07/17 09:06 Dose: 2 tab Sitagliptin Phosphate (Januvia) 100 mg PO DAILY [facility] Last Admin: 06/07/17 09:09 Dose: 100 mg Zolpidem Tartrate (Ambien) 5 mg PO HS [facility] Last Admin: 06/06/17 21:48 Dose: 5 mg - Labs Labs: 06/04/17 15:35 06/04/17 15:35 PT 11.3 Seconds (9.8-13.1) 06/04/17 15:35 INR 1.1 (0.9-1.2) 06/04/17 15:35 APTT 29.5 Seconds (25.6-37.1) 06/04/17 15:35 - Respiratory Exam Respiratory Exam: Clear to Ausculation Bilateral - Cardiovascular Exam Cardiovascular Exam: REGULAR RHYTHM, +S1, +S2 - Extremities Exam Extremities Exam: Normal Inspection - Additional Findings Additional findings: TEST AUTOMATION ARCHITECT NSR Assessment and Plan - Assessment and Plan (Free Text) Assessment: CAD WITH CHEST PAIN AND NON-COMPLIANCE WITH RENAXA AND ISOSORBIDE DINITRATE S/P ATRIAL FIBRILLATION-NOW IN NSR HYPERTENSION HYPERLIPIDEMIA Plan: CONTINUE DIGOXIN, ISOSORBIDE, RENAXA, CARVEDILOL, COZAAR, METOPROLOL, ASPIRIN, CLOPIDOGREL, ELIQUIS, ATORVASTATIN, FENOFIBRATE OK TO DISCHARGE FROM CARDIAC VIEWPOINT COMPLIANCE WITH MEDICINES STRESSED TO PATIENT
[2017-06-07] MEDS ORDERED: Digoxin 125 mcg (0.125 mg) Tab PO SCH ×2 (15:00)
[2017-06-07 16:33] VITALS: PULSE 71
[2017-06-07 17:11] VITALS: BP 123/75; PULSE 66; RESP 20; TEMP 97.5; O2SAT 98
--- NOTE | 2017-06-08 08:34 | DS ---
REASON FOR ADMISSION: This is a 66-year-old male with history of multiple medical problems, was admitted for chest pain. COURSE OF HOSPITALIZATION: The patient was admitted to telemetry floor and cardiac enzymes were collected and ruled out myocardial infarction. The patient had a cardiology consultation done by Dr. Lai. Due to perianal fistula history and perineal pain, the patient had surgical consultation that did not reveal any active infection, and it was decided that the patient will follow up with Dr. Longoria as an outpatient. FINAL DIAGNOSES: 1. Chest pain, myocardial infarction ruled out. 2. Coronary artery disease. 3. Hypertension. 4. Chronic kidney disease. 5. 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 6. History of chronic kidney disease. [facility] MD Tom
== END 2017-06-07 17:00 | disposition home or self-care (01) | DRG 303 ==
LOC: H.ER 14:36 → H.ERHOLD 15:54 → H.TEL 21:45 → OBSVTOIN 06-06 12:28
PROVIDERS: ADMIT Internal Medicine; ATTEND Internal Medicine
DX: I25.10 Atherosclerotic heart disease of native coronary artery without angina pectoris (principal); E11.22 Type 2 diabetes mellitus with diabetic chronic kidney disease; I50.9 Heart failure, unspecified; I13.0 Hypertensive heart and chronic kidney disease with heart failure and stage 1 through stage 4 chronic kidney disease, or unspecified chronic kidney disease; R07.89 Other chest pain; E78.00 Pure hypercholesterolemia, unspecified; E78.5 Hyperlipidemia, unspecified; I48.91 Unspecified atrial fibrillation; I73.9 Peripheral vascular disease, unspecified; K60.3 Anal fistula; N18.9 Chronic kidney disease, unspecified; Z79.02 Long term (current) use of antithrombotics/antiplatelets; Z79.82 Long term (current) use of aspirin; Z79.899 Other long term (current) drug therapy; Z87.891 Personal history of nicotine dependence; Z90.49 Acquired absence of other specified parts of digestive tract; Z91.19 Patient's noncompliance with other medical treatment and regimen; Z95.5 Presence of coronary angioplasty implant and graft; D64.9 Anemia, unspecified; K82.9 Disease of gallbladder, unspecified; M19.90 Unspecified osteoarthritis, unspecified site; R60.0 Localized edema; Z79.84 Long term (current) use of oral hypoglycemic drugs; R10.32 Left lower quadrant pain

== ENCOUNTER 2017-06-26 14:05 | Emergency (ER) | payer OTHER ==
[2017-06-26 14:05] VITALS: PULSE 71; BMI 41.3
[2017-06-26 14:10] VITALS: TEMP 97.7
[2017-06-26] MEDS ORDERED: Sodium Chloride 0.9% 1,000 ML IV STA (14:31)
[2017-06-26 15:00] LABS: BASO # 0.1 K/uL (0.0-0.2); BASO % 1.2 % (0.0-2.0); EOS # 0.1 K/uL (0.0-0.7); EOS % 1.7 % (0.0-4.0); HEMATOCRIT 36.5 % (35.0-51.0); LYMPH # 2.8 K/uL (1.0-4.3); LYMPH % 33.4 % (20.0-40.0); MEAN CELL VOLUME 81.4 fl (80.0-94.0); MEAN CORPUSCULAR HEMOGLOBIN 26.3 pg (27.0-31.0); MEAN CORPUSCULAR HGB CONC 32.4 g/dL (33.0-37.0); MEAN PLATELET VOLUME 11.5 fl (7.2-11.7); MONO # 0.7 K/uL (0.0-0.8); MONO % 8.2 % (0.0-10.0); NEUT # 4.6 K/uL (1.8-7.0); NEUT % 55.5 % (50.0-75.0); NRBC % 0.2 % (0.0-0.0); RED CELL DISTRIBUTION WIDTH 18.4 % (11.5-14.5); WHITE BLOOD COUNT 8.3 K/uL (4.8-10.8)
[2017-06-26 15:07] LABS: ALB/GLOB RATIO 1.3 (1.0-2.1); BILIRUBIN,TOTAL 0.4 mg/dl (0.2-1.3); CALCIUM 10.7 mg/dL (8.4-10.2); POTASSIUM 4.3 MMOL/L (3.6-5.0)
[2017-06-26 15:18] LABS: TROPONIN I 0.079 ng/mL (0.00-0.120)
--- NOTE | 2017-06-26 15:26 | ED PDOC ---
HPI: Psych/Substance Abuse Time Seen by Provider: 06/26/17 14:30 Chief Complaint (Nursing): Alcohol Ingestion Additional Complaint(s): 66yoM in ED for eval of intoxication-was found by EMS sitting upright on a curb -sternal rub was required to wake pt suspected ETOH Pt with hx of MT. pt now alert [id number] states he did drink, did not lose LOC, no head injury, no chest pain, dizziness abd pain or back pain no numbness to LE/UE. pmhx : CHF, MT, DM, HTN, CAD, CKD, AFIB Past Medical History Reviewed: Historical Data, Nursing Documentation, Vital Signs Vital Signs: Last Vital Signs Temp 97.7 F 06/26/17 14:07 Pulse 82 06/26/17 15:06 Resp 19 06/26/17 15:06 BP 103/59 L 06/26/17 15:06 Pulse Ox 96 06/26/17 15:06 - Medical History PMH: Anemia, Arthritis, Atrial Fibrillation (? ), CAD, Cardia Arrhythmia ( atrial fib), CHF, Diabetes (type II), Gall Bladder Disease, HTN, Hypercholesterolemia, Peripheral Edema, Chronic Kidney Disease (renal insufficiency) - Surgical History Surgical History: Cholecystectomy, Coronary Stent - Family History Family History: States: [place] (mother at age 70) Denies: Unknown Family Hx - Immunization History Hx Tetanus Toxoid Vaccination: No Hx Influenza Vaccination: No Hx Pneumococcal Vaccination: No - Home Medications Home Medications: Ambulatory Orders Medication Instructions Recorded Finasteride [Proscar] 5 mg PO DAILY 09/03/15 Fenofibrate,Micronized [Lofibra] 134 mg PO DAILY 12/04/15 Clopidogrel [Plavix] 75 mg PO DAILY #30 tab 10/08/16 Losartan Potassium 50 mg PO DAILY 03/23/17 Aspirin [Adult Low Dose Aspirin EC] 81 mg PO DAILY #30 tablet. 03/25/17 Ergocalciferol (Vitamin D2) 50,000 unit PO QWK 06/04/17 [Vitamin D2] Liraglutide [Victoza 2-Cliff] 1.2 mg SC DAILY 06/04/17 Metoprolol Succinate [Toprol XL] 50 mg PO DAILY 06/04/17 SITagliptin [Januvia] 100 mg PO DAILY 06/04/17 Simvastatin [Zocor] 40 mg PO DAILY 06/04/17 Apixaban [Eliquis] 2.5 mg PO BID #60 tab 06/07/17 Atorvastatin [Lipitor] 20 mg PO DAILY #60 tab 06/07/17 Fenofibrate [Tricor] 145 mg PO DAILY #30 tab 06/07/17 Isosorbide Mononitrate ER [Imdur 90 mg PO DAILY #60 tab 06/07/17 ER] Ranolazine [Ranexa] 500 mg PO Q12H #60 ter 06/07/17 oxyCODONE/Acetaminophen [Percocet 1 tab PO Q6 PRN #21 tab 06/07/17 5/325 mg Tab] - Allergies Allergies/Adverse Reactions: Allergies Allergy/AdvReac Type Severity Reaction Status Date / Time No Known Allergies Allergy Verified 06/04/17 14:44 Review of Systems ROS Statement: Except As Marked, All Systems Reviewed And Found Negative Constitutional: Negative for: Fever, Weakness, Malaise Cardiovascular: Negative for: Chest Pain, Palpitations Respiratory: Negative for: Cough Neurological: Negative for: Confusion, Altered Mental Status, Headache, Dizziness Physical Exam - Reviewed Nursing Documentation Reviewed: Yes Vital Signs Reviewed: Yes - Physical Exam Appears: Positive for: Well (alert orinted, speaking in coherent setences), Non- toxic, No Acute Distress Skin: Positive for: Normal Color, Warm, DRY ENT: Positive for: Normal ENT Inspection Neck: Positive for: Normal, Painless ROM Cardiovascular/Chest: Positive for: Regular Rate, Rhythm Respiratory: Positive for: CNT, Normal Breath Sounds Gastrointestinal/Abdominal: Positive for: Normal Exam, Bowel Sounds, Soft Neurologic/Psych: Positive for: Alert, aix system administrator II-XII (intact), Oriented - Laboratory Results Result Diagrams: 06/26/17 14:40 06/26/17 14:40 - ECG O2 Sat by Pulse Oximetry: 96 - CT Scan/US head Other Rad Studies (CT/US): Radiology Report Reviewed (NAD) - Progress ED Course And Treament: pt with hypotensive-will need fluids IV and CT of head, EKG and labs. BP cycle [id number]. Orders Category Date Time Status HEAD W/O CONTRAST [CT] Stat CT 06/26/17 14:44 Ordered ELECTROCARDIOGRAM Stat Cardiology 06/26/17 14:31 Ordered ALCOHOL SERUM Stat Chem 06/26/17 14:40 Results COMP METABOLIC PANEL Stat Chem 06/26/17 14:40 Results TROPONIN I Stat Chem 06/26/17 14:40 Results EKG-ED [EDNURTX] STAT ED Care 06/26/17 14:31 Active CBC (WITH DIFFERENTIAL) Stat AHMET 06/26/17 14:40 Received Sodium Chloride 0.9% 1,000 ml Med 06/26/17 14:31 Active IV 1,000 mls/hr Medical Decision Making Medical Decision Making: Vital Signs - 24 hr 06/26/17 06/26/17 06/26/17 14:07 15:06 15:20 Temperature 97.7 F Pulse Rate 83 82 79 Respiratory 16 19 18 Rate Blood Pressure 88/55 L 103/59 L 117/63 O2 Sat by Pulse 99 96 97 Oximetry 06/26/17 06/26/17 06/26/17 15:43 16:00 16:12 Temperature Pulse Rate 80 84 Respiratory 17 17 Rate Blood Pressure 132/75 146/89 O2 Sat by Pulse 97 98 96 Oximetry BP improved to normotensive after 1 NS fluid, CT scan is normal. labs are within normal. pt stable for d.c 06/26/17 06/26/17 14:40 14:40 WBC 8.3 RBC 4.48 Hgb 11.8 L Hct 36.5 MCV 81.4 MCH 26.3 L MCHC 32.4 L RDW 18.4 H Plt Count 246 MPV 11.5 Neut % (Auto) 55.5 Lymph % (Auto) 33.4 [place] % (Auto) 8.2 Eos % (Auto) 1.7 Baso % (Auto) 1.2 Neut # 4.6 Lymph # 2.8 [place] # 0.7 Eos # 0.1 Baso # 0.1 Sodium 139 Potassium 4.3 Chloride 103 Carbon Dioxide 18 L Anion Gap 22 H BUN 29 H Creatinine 2.7 H Est GFR ( Amer) 29 Est GFR (Non-Af Amer) 24 Random Glucose 107 Calcium 10.7 H Total Bilirubin 0.4 AST 27 ALT 25 Alkaline Phosphatase 37 L Troponin I 0.0790 Total Protein 8.0 Albumin 4.5 Globulin 3.5 Albumin/Globulin Ratio 1.3 Alcohol, Quantitative 177 H Disposition - Clinical Impression Clinical Impression: Alcohol abuse, Hypotension - Patient ED Disposition Is Patient to be Admitted: No Counseled Patient/Family Regarding: Studies Performed, Diagnosis, Need For Followup - Disposition Disposition: Routine/Home Disposition Time: 16:14 Condition: STABLE Instructions: Hypotension (ED) Print Language: [place]
[2017-06-26 15:44] VITALS: RESP 17
--- NOTE | 2017-06-26 15:54 | CT ---
PROCEDURE: CT HEAD WITHOUT CONTRAST. HISTORY: headache COMPARISON: None available. TECHNIQUE: Axial computed tomography images were obtained through the head/brain without intravenous contrast. Radiation dose: Total exam DLP = 1421 mGy-cm. This CT exam was performed using one or more of the following dose reduction techniques: Automated exposure control, adjustment of the mA and/or kV according to patient size, and/or use of iterative reconstruction technique. FINDINGS: HEMORRHAGE: No intracranial hemorrhage. BRAIN: No mass effect or edema. Tiny chronic stable left frontal white matter infarct or small vessel changes noted. Mild small vessel changes are seen elsewhere. No new cortical effacement is seen. Mild age related cerebral atrophy is noted. VENTRICLES: Unremarkable. No hydrocephalus. CALVARIUM: Unremarkable. PARANASAL SINUSES: Unremarkable as visualized. No significant inflammatory changes. MASTOID AIR CELLS: Unremarkable as visualized. No inflammatory changes. OTHER FINDINGS: None. IMPRESSION: No evidence of intracranial hemorrhage or recent infarct. Mild stable age related atrophy and small vessel change.
[2017-06-26 16:01] VITALS: BP 146/89; PULSE 84
[2017-06-26 16:12] VITALS: O2SAT 96
--- NOTE | 2017-06-28 10:53 | CARD ---
APPROVED REPORT EKG Measurement Heart [id number] <Conclusion> Normal sinus rhythm Possible Left atrial enlargement Inferior infarct, age undetermined Abnormal ECG
== END 2017-06-26 17:07 | disposition home or self-care (01) ==
LOC: H.ER 14:05
DX: F10.10 Alcohol abuse, uncomplicated (principal); I95.9 Hypotension, unspecified; E11.22 Type 2 diabetes mellitus with diabetic chronic kidney disease; E78.00 Pure hypercholesterolemia, unspecified; I13.0 Hypertensive heart and chronic kidney disease with heart failure and stage 1 through stage 4 chronic kidney disease, or unspecified chronic kidney disease; I25.2 Old myocardial infarction; I48.91 Unspecified atrial fibrillation; Z79.01 Long term (current) use of anticoagulants; Z79.82 Long term (current) use of aspirin; Z95.5 Presence of coronary angioplasty implant and graft
CPT/HCPCS: 70450; 80053; 82948; 84484; 85025; 93005; 99284; G0480; J7040

== ENCOUNTER 2017-08-23 18:13 | Observation (INO) | payer OTHER ==
[2017-08-23 18:13] VITALS: PULSE 71; BMI 41.3
[2017-08-23 20:17] LABS: BASO # 0.1 K/uL (0.0-0.2); BASO % 0.7 % (0.0-2.0); EOS # 0.2 K/uL (0.0-0.7); EOS % 2.4 % (0.0-4.0); HEMATOCRIT 33.7 % (35.0-51.0); LYMPH # 1.7 K/uL (1.0-4.3); LYMPH % 17.2 % (20.0-40.0); MEAN CELL VOLUME 81.9 fl (80.0-94.0); MEAN CORPUSCULAR HEMOGLOBIN 26.4 pg (27.0-31.0); MEAN CORPUSCULAR HGB CONC 32.3 g/dL (33.0-37.0); MEAN PLATELET VOLUME 10.7 fl (7.2-11.7); MONO # 0.7 K/uL (0.0-0.8); MONO % 6.8 % (0.0-10.0); NEUT # 7.2 K/uL (1.8-7.0); NEUT % 72.9 % (50.0-75.0); WHITE BLOOD COUNT 9.9 K/uL (4.8-10.8)
[2017-08-23 20:22] LABS: ALB/GLOB RATIO 1.2 (1.0-2.1); ALCOHOL SERUM < 10 mg/dl (0-10); BILIRUBIN,TOTAL 0.9 mg/dl (0.2-1.3); CALCIUM 10.5 mg/dL (8.4-10.2); CARBON DIOXIDE 26 mmol/L (22-30); CHLORIDE 108 mmol/L (98-107); GFR AFRICAN-AMERICAN > 60; GLUCOSE,RANDOM 155 mg/dL (75-110); SODIUM 144 mmol/l (132-148); TOTAL PROTEIN 8.1 G/DL (6.3-8.2)
[2017-08-23 20:32] LABS: ALKALINE PHOSPHATASE 35 U/L (38-126); ALT/SGPT 34 U/L (21-72); AST/SGOT 41 U/L (17-59); BLOOD UREA NITROGEN 23 mg/dl (9-20)
--- NOTE | 2017-08-23 20:37 | ED PDOC ---
HPI: Chest Pain Time Seen by Provider: 08/23/17 19:15 Chief Complaint (Nursing): Chest Pain Chief Complaint (Provider): Chest Pain History Per: Patient History/Exam Limitations: no limitations Onset/Duration Of Symptoms: Days (x several weeks) Current Symptoms Are (Timing): Still Present Additional Complaint(s): Jake Cortes is a 66 year old male with a past medical history of alcoholism presents to the ED complaining of left sided chest pain, onset several weeks ago. Patient has been previously for a variety of recurring medical problems. Denies any nausea, vomiting or diarrhea. PMD: Dr. Tawana Santos Past Medical History Reviewed: Historical Data, Nursing Documentation, Vital Signs Vital Signs: Last Vital Signs Temp 98.0 F 08/25/17 07:59 Pulse 67 08/25/17 09:04 Resp 20 08/25/17 07:59 BP 157/83 H 08/25/17 09:04 Pulse Ox 95 08/25/17 07:59 - Medical History PMH: Anemia, Arthritis, Atrial Fibrillation (? ), CAD, Cardia Arrhythmia ( atrial fib), CHF, Diabetes (type II), Gall Bladder Disease, HTN, Hypercholesterolemia, Peripheral Edema, Chronic Kidney Disease (renal insufficiency) - Surgical History Surgical History: Cholecystectomy, Coronary Stent - Family History Family History: States: [place] (mother at age 70) - Social History Current smoker - smoking cessation education provided: No Alcohol: Occasional Drugs: Denies - Immunization History Hx Tetanus Toxoid Vaccination: No Hx Influenza Vaccination: No Hx Pneumococcal Vaccination: No - Home Medications Home Medications: Ambulatory Orders Medication Instructions Recorded Clopidogrel [Plavix] 75 mg PO DAILY #30 tab 10/08/16 Losartan Potassium 50 mg PO DAILY 03/23/17 Metoprolol Succinate [Toprol XL] 50 mg PO DAILY 06/04/17 SITagliptin [Januvia] 100 mg PO DAILY 06/04/17 Atorvastatin [Lipitor] 20 mg PO DAILY #60 tab 06/07/17 Isosorbide Mononitrate ER [Imdur 90 mg PO DAILY #60 tab 06/07/17 ER] Nitroglycerin [Nitrostat] 0.4 mg PO PRN PRN 08/23/17 Pantoprazole [Protonix EC Tab] 40 mg PO DAILY 08/23/17 - Allergies Allergies/Adverse Reactions: Allergies Allergy/AdvReac Type Severity Reaction Status Date / Time No Known Allergies Allergy Verified 08/23/17 18:25 Review of Systems ROS Statement: Except As Marked, All Systems Reviewed And Found Negative Cardiovascular: Positive for: Chest Pain (left side) Gastrointestinal: Negative for: Nausea, Vomiting, Diarrhea Physical Exam - Reviewed Nursing Documentation Reviewed: Yes Vital Signs Reviewed: Yes - Physical Exam Appears: Positive for: Non-toxic, No Acute Distress Head Exam: Positive for: ATRAUMATIC, NORMOCEPHALIC Skin: Positive for: Normal Color, Warm, Dry Eye Exam: Positive for: EOMI, Normal appearance, PERRL Neck: Positive for: Normal, Painless ROM, Supple Cardiovascular/Chest: Positive for: Regular Rate, Rhythm. Negative for: Murmur Respiratory: Positive for: Normal Breath Sounds. Negative for: Respiratory Distress Gastrointestinal/Abdominal: Positive for: Normal Exam, Soft Back: Positive for: Normal Inspection. Negative for: L CVA Tenderness, R CVA Tenderness, Vertebral Tenderness Extremity: Positive for: Normal ROM. Negative for: Pedal Edema, Deformity Neurologic/Psych: Positive for: Alert, Oriented. Negative for: Motor/Sensory Deficits - Laboratory Results Result Diagrams: 08/23/17 20:00 08/23/17 20:00 - ECG ECG: Positive for: Interpreted By Me, Viewed By Me ECG Rhythm: Positive for: Normal QRS, Normal ST Segment. Negative for: ST/T Changes Rate: 92 O2 Sat by Pulse Oximetry: 100 Medical Decision Making Medical Decision Making: Time: 19:58 Initial Plan: --EKG --Alcohol serum --CMP --Troponin I --CBC --reevaluation Time: 20:47 --Aspirin 162 mg PO Time: 22:02 --Percocet 5/325 mg 1 tab Time: 22:50 --Patient reports the pain has not subsided. --Consulted with PMD, Dr. Santos will order nitro sl for pain will admit for cardiac monitoring given history of cardiac risk factors pt agreeable to plan Scribe Attestation: Documented by Sondar Otero, acting as a scribe for Pamela Pearson MD Provider Scribe Attestation: All medical record entries made by the Scribe were at my direction and personally dictated by me. I have reviewed the chart and agree that the record accurately reflects my personal performance of the history, physical exam, medical decision making, and the department course for this patient. I have also personally directed, reviewed, and agree with the discharge instructions and disposition. Disposition - Clinical Impression Clinical Impression: Acute chest pain - Patient ED Disposition Is Patient to be Admitted: Yes - Disposition Disposition Time: 21:00 Condition: STABLE
[2017-08-23] MEDS ORDERED: Oxycodone/Acetaminophen 5/325 mg Tab PO ONE (22:04)
[2017-08-23] MEDS ORDERED: Metoprolol Succinate 50 mg XL Tab PO STA (23:43)
[2017-08-24] MEDS: Insulin Lispro (humaLOG) 100 Units/ml Inj SC SCH ×4 (06:41→21:46)
[2017-08-24] MEDS: Metoprolol Succinate 50 mg XL Tab PO SCH (09:06)
[2017-08-24] MEDS: Pantoprazole 40 mg EC Tab PO SCH (09:08)
--- NOTE | 2017-08-24 11:07 | CP.PCM.CON ---
History of Present Illness - History of Present Illness History of Present Illness: THE PATIENT IS A 66 YEAR OLD MALE WITH A HISTORY OF CAD, HYPERTENSION, HYPERLIPIDEMIA, RENAL DOSEASE AND DIABETES MELLITUS. HE HAD AN IWMI SEVERAL YEARS AGO AND HAD CORONARY STENTS INSERTED AND WAS ADMITTED EARLIER IN THE YEAR WITH CHEST PAIN AND HE HAD A CARDIAC CATH BY DR VILLEGAS IN OCTOBER 2016 AND IT SHOWED THAT THE STENTS WERE PATENT AND THAT HE HAD SMALL ARTERY DISEASE. HE HAS BEEN NON-COMPLIANT WITH HIS MEDICINES ALWAYS STATING THAT HE RAN OUT OF HIS MEDICINES AND WAS ADMITTED ONCE FOR FOR THIS EARLIER IN THE YEAR AND HE ADMITTED TO NOT TAKING HIS ISOSORBIDE. HE NOW STATES THAT HE RAN OUT OF HIS RENEXA FOR ONE WEEK AND HE STARTED HAVING CHEST PAIN AT THAT TIME AND CAME TO THE ER LAST NIGHT FOR CHEST PAIN AND HE WAS ADMITTED. CARDIOLOGY WAS NOW ASKED TO SEE HIM. HE ADMITS TO RUNNING OUT OF HIS RENAXA AND IS CHEST PAIN FREE NOW. THE PATIENT'S PHARMACY WAS CALLED AND HE LAST REFILLED RENAXA AND IMDUR FOR 30 DAYS IN OF THIS YEAR. Past Patient History - Infectious Disease Hx of Infectious Diseases: None - Past Medical History & Family History Past Medical History?: Yes - Past Social History Smoking Status: Former Smoker - CARDIAC Hx Cardiac Disorders: Yes Hx Atrial Fibrillation: Yes Hx Congestive Heart Failure: Yes Hx Hypercholesterolemia: Yes Hx Hypertension: Yes Hx Peripheral Edema: Yes - PULMONARY Hx Respiratory Disorders: Yes Other/Comment: S/P tracheostomy and reversal due to throat infection - NEUROLOGICAL Hx Neurological Disorder: No - HEENT Hx HEENT Problems: No - RENAL Hx Chronic Kidney Disease: Yes (renal insufficiency) - ENDOCRINE/METABOLIC Hx Endocrine Disorders: Yes Hx Diabetes Mellitus Type 2: Yes - HEMATOLOGICAL/ONCOLOGICAL Hx Blood Disorders: Yes Hx Anemia: Yes - INTEGUMENTARY Hx Dermatological Problems: No - MUSCULOSKELETAL/RHEUMATOLOGICAL Hx Musculoskeletal Disorders: Yes Hx Arthritis: Yes Hx Falls: No - GASTROINTESTINAL Hx Gastrointestinal Disorders: Yes Hx Gall Bladder Disease: Yes - GENITOURINARY/GYNECOLOGICAL Hx Genitourinary Disorders: Yes Other/Comment: scrotal lesions as per pt - PSYCHIATRIC Hx Psychophysiologic Disorder: No Hx Substance Use: No - SURGICAL HISTORY Hx Surgeries: Yes Hx Cholecystectomy: Yes Hx Coronary Stent: Yes Other/Comment: testicular surgery as per pt - ANESTHESIA Hx Anesthesia: Yes Hx Anesthesia Reactions: No Hx Malignant Hyperthermia: No Has any member of the family had a problem w/ anesthesia?: No Meds Allergies/Adverse Reactions: Allergies Allergy/AdvReac Type Severity Reaction Status Date / Time No Known Allergies Allergy Verified 08/23/17 18:25 - Medications Medications: Current Medications Atorvastatin Calcium (Lipitor) 20 mg PO DAILY [facility] Last Admin: 08/24/17 09:06 Dose: 20 mg Clopidogrel Bisulfate (Plavix) 75 mg PO DAILY [facility] Last Admin: 08/24/17 09:08 Dose: 75 mg Insulin Human Lispro (Humalog) 0 units SC ACHS [facility] PRN Reason: Protocol Last Admin: 08/24/17 06:41 Dose: Not Given Isosorbide Mononitrate (Imdur Er) 90 mg PO DAILY [facility] Last Admin: 08/24/17 09:06 Dose: 90 mg Losartan Potassium (Cozaar) 50 mg PO DAILY [facility] Last Admin: 08/24/17 09:05 Dose: 50 mg Metoprolol Succinate (Toprol Xl) 50 mg PO DAILY [facility] Last Admin: 08/24/17 09:06 Dose: 50 mg Oxycodone/Acetaminophen (Percocet 5/325 Mg Tab) 1 tab PO Q6 PRN PRN Reason: Pain, moderate (4-7) Stop: 08/27/17 06:26 Pantoprazole Sodium (Protonix Ec Tab) 40 mg PO DAILY [facility] Last Admin: 08/24/17 09:08 Dose: 40 mg Sitagliptin Phosphate (Januvia) 50 mg PO DAILY [facility] Last Admin: 08/24/17 09:06 Dose: 50 mg Physical Exam - Respiratory Exam Respiratory Exam: Clear to Auscultation Bilateral - Cardiovascular Exam Cardiovascular Exam: REGULAR RHYTHM, +S1, +S2 - Extremities Exam Additional comments: CHRONIC LEG EDEMA - Additional Findings Additional findings: EKG NSR, OLD IWMI TROPONINS NEGATIVE Results - Vital Signs Recent Vital Signs: Last Vital Signs Temp 97.4 F L 08/24/17 08:28 Pulse 66 08/24/17 09:06 Resp 20 08/24/17 08:28 BP 164/73 H 08/24/17 09:06 Pulse Ox 98 08/24/17 08:28 - Labs Result Diagrams: 08/23/17 20:00 08/23/17 20:00 Labs: Laboratory Results - last 24 hr 08/23/17 08/23/17 08/23/17 19:09 20:00 20:00 WBC 9.9 RBC 4.11 L Hgb 10.9 L Hct 33.7 L MCV 81.9 MCH 26.4 L MCHC 32.3 L RDW 17.0 H Plt Count 201 MPV 10.7 Neut % (Auto) 72.9 Lymph % (Auto) 17.2 L [place] % (Auto) 6.8 Eos % (Auto) 2.4 Baso % (Auto) 0.7 Neut # 7.2 H Lymph # 1.7 [place] # 0.7 Eos # 0.2 Baso # 0.1 Sodium 144 Potassium 5.0 Chloride 108 H Carbon Dioxide 26 Anion Gap 15 BUN 23 H Creatinine 1.4 Est GFR ( Amer) > 60 Est GFR (Non-Af Amer) 50 POC Glucose (mg/dL) 189 H Random Glucose 155 H Calcium 10.5 H Total Bilirubin 0.9 AST 41 ALT 34 Alkaline Phosphatase 35 L Troponin I 0.0520 Total Protein 8.1 Albumin 4.5 Globulin 3.6 Albumin/Globulin Ratio 1.2 Alcohol, Quantitative < 10 08/24/17 08/24/17 04:20 05:24 WBC RBC Hgb Hct MCV MCH MCHC RDW Plt Count MPV Neut % (Auto) Lymph % (Auto) [place] % (Auto) Eos % (Auto) Baso % (Auto) Neut # Lymph # [place] # Eos # Baso # Sodium Potassium Chloride Carbon Dioxide Anion Gap BUN Creatinine Est GFR ( Amer) Est GFR (Non-Af Amer) POC Glucose (mg/dL) 131 H Random Glucose Calcium Total Bilirubin AST ALT Alkaline Phosphatase Troponin I 0.0490 Total Protein Albumin Globulin Albumin/Globulin Ratio Alcohol, Quantitative Assessment & Plan - Assessment and Plan (Free Text) Assessment: CAD WITH OLD IWMI AND STENT INSERTIONS WITH SMALL VESSEL CAD ON CARDIAC CATH IN OCTOBER 2016. NOW WITH CHEST PAIN MOST FROM NON-COMPLIANCE WITH RENAXA AND ISOSORBIDE. EKG IS UNCHANGED AND TROPONINS ARE NORMAL. HYPERTENSION HYPERLIPIDEMIA DM RENAL DISEASE Plan: CONTINUE O2, IMDUR, METOPROLOL, ASPIRIN, CLOPIDOGREL, ATORVASTATIN, LOSARTAN RENAXA IS NOT ON OUR HOSPITAL FORMULARY-WILL ADD EXTRA NITROPASTE TODAY IN ADDITION TO IMDUR SERIAL EKGS AND TROPONINS ECHO DONE THIS YEAR AND SHOWS GOOD LV SYSTOLIC FUNCTION LOCAL PHARMACY CALLED AND RENAXA AND ISOSORBIDE WERE RENEWED I HAD A LONG TALK WITH THE PATIENT ABOUT COMPLIANCE WITH HIS MEDICINES
[2017-08-24] MEDS: Aspirin 325 mg EC Tablets PO SCH (12:30)
[2017-08-24] MEDS: Oxycodone/Acetaminophen 5/325 mg Tab PO PRN ×2 (15:10→22:30)
[2017-08-24] MEDS: Nitroglycerin 2% Ointment Foilpak UD TOP SCH ×2 (17:00→21:44)
--- NOTE | 2017-08-24 17:20 | CARD ---
APPROVED REPORT EKG Measurement Heart [id number] <Conclusion> Normal sinus rhythm Possible Left atrial enlargement Possible Inferior infarct, age undetermined T wave abnormality, consider lateral ischemia Abnormal ECG
--- NOTE | 2017-08-24 17:49 | CARD ---
APPROVED REPORT EKG Measurement Heart [id number] 160P50 [id number] <Conclusion> Normal sinus rhythm Possible Left atrial enlargement Inferior infarct, age undetermined Abnormal ECG
--- NOTE | 2017-08-25 04:47 | HP ---
HISTORY OF PRESENT ILLNESS: This is a 66-year-old male with history of multiple medical problems including coronary artery disease, presented to Emergency Room with symptoms of intermittent chest pain. The patient has a history of coronary artery disease, status post PCI, and he has multiple risk factors. The patient was admitted for further management after calling for Cardiology consult. REVIEW OF SYSTEMS: Positive for perianal pain at the site of perianal fistula. Other review of system is negative. ALLERGIES: No known allergy. HOME MEDICATIONS: As per MAR. SOCIAL HISTORY: No history of smoking, EtOH, or substance abuse. FAMILY HISTORY: Noncontributory. PAST MEDICAL HISTORY: Coronary artery disease, chronic kidney disease, type 2 diabetes mellitus, hypertension. PHYSICAL EXAMINATION: GENERAL: The patient is in bed, comfortable, not in any cardiopulmonary distress. VITAL SIGNS: Blood pressure of 137/82, temperature 97.4, respiratory rate 20, and pulse 73. HEENT: Pupils equal, reactive to light. Normal-appearing mucosa of the conjunctivae, oropharynx, and nasal membrane mucosa. NECK: Supple. No JVD. No carotid bruit. No lymph node. No thyromegaly. CHEST/LUNGS: Bilateral symmetrical expansion. Good air exchange. No rales, no rhonchi. CARDIOVASCULAR SYSTEM: PMI not localized. S1, S2. No additional sounds. ABDOMEN: Normoactive bowel sounds. No tenderness. No organomegaly. No masses. EXTREMITIES: No cyanosis, no clubbing, no edema. CREDIT AND COLLECTIONS ANALYST: Alert, awake, oriented x2. No neurological deficit could be appreciated. IMPRESSION: Chest pain, rule out acute coronary syndrome; chronic kidney disease; hypertension; type 2 diabetes mellitus. PLAN: Discussed the patient's condition with Dr. Lai. The patient is not taking his regular medications ordered by Cardiology, including Ranexa as well as isosorbide mononitrate. The patient is not compliant with medical followup. Cardiac enzymes were ordered and home medications were resumed; Accu-Cheks q.i.d. with insulin coverage. Tawana Santos MD
[2017-08-25] MEDS: Nitroglycerin 2% Ointment Foilpak UD TOP SCH ×2 (05:33→09:04)
[2017-08-25] MEDS: Insulin Lispro (humaLOG) 100 Units/ml Inj SC SCH ×2 (06:32→11:43)
[2017-08-25] MEDS: Aspirin 325 mg EC Tablets PO SCH (08:35)
[2017-08-25] MEDS: Metoprolol Succinate 50 mg XL Tab PO SCH (08:36)
[2017-08-25] MEDS: Pantoprazole 40 mg EC Tab PO SCH (08:36)
[2017-08-25] MEDS: Oxycodone/Acetaminophen 5/325 mg Tab PO PRN (09:03)
--- NOTE | 2017-08-25 09:56 | CP.PCM.PN ---
Subjective - Date & Time of Evaluation Date of Evaluation: 08/25/17 Time of Evaluation: 09:30 - Subjective Subjective: NO CHEST PAIN TODAY Objective - Vital Signs/Intake and Output Vital Signs (last 24 hours): Temp Pulse Resp BP Pulse Ox 98.0 F 67 20 157/83 H 95 08/25/17 07:59 08/25/17 09:04 08/25/17 07:59 08/25/17 09:04 08/25/17 07:59 - Medications Medications: Current Medications Acetaminophen (Tylenol 325mg Tab) 650 mg PO Q6 PRN PRN Reason: Headache Aspirin (Ecotrin) 325 mg PO DAILY [facility] Last Admin: 08/25/17 08:35 Dose: 325 mg Atorvastatin Calcium (Lipitor) 20 mg PO DAILY [facility] Last Admin: 08/25/17 08:36 Dose: 20 mg Clopidogrel Bisulfate (Plavix) 75 mg PO DAILY [facility] Last Admin: 08/25/17 08:36 Dose: 75 mg Insulin Human Lispro (Humalog) 0 units SC ACHS [facility] PRN Reason: Protocol Last Admin: 08/25/17 06:32 Dose: Not Given Isosorbide Mononitrate (Imdur Er) 90 mg PO DAILY [facility] Last Admin: 08/25/17 08:36 Dose: 90 mg Losartan Potassium (Cozaar) 50 mg PO DAILY [facility] Last Admin: 08/25/17 08:35 Dose: 50 mg Metoprolol Succinate (Toprol Xl) 50 mg PO DAILY [facility] Last Admin: 08/25/17 08:36 Dose: 50 mg Nitroglycerin (Nitro-Bid 2% Oint) 1 ea TOP Q6 [facility] Last Admin: 08/25/17 09:04 Dose: 1 ea Oxycodone/Acetaminophen (Percocet 5/325 Mg Tab) 1 tab PO Q6 PRN PRN Reason: Pain, moderate (4-7) Stop: 08/27/17 06:26 Last Admin: 08/25/17 09:03 Dose: 1 tab Pantoprazole Sodium (Protonix Ec Tab) 40 mg PO DAILY [facility] Last Admin: 08/25/17 08:36 Dose: 40 mg Sitagliptin Phosphate (Januvia) 50 mg PO DAILY [facility] Last Admin: 08/25/17 08:36 Dose: 50 mg - Labs Labs: 08/23/17 20:00 08/23/17 20:00 - Respiratory Exam Respiratory Exam: Clear to Ausculation Bilateral - Cardiovascular Exam Cardiovascular Exam: REGULAR RHYTHM, +S1, +S2 - Extremities Exam Extremities Exam: Normal Inspection Assessment and Plan - Assessment and Plan (Free Text) Assessment: CAD WITH OLD IWMI AND STENT INSERTIONS WITH ANGINA DUE TO NON COMPLIANCE WITH MEDICINES-CHEST PAIN FREE NOW ON NITRATES AND OTHER MEDICATIONS HYPERTENSION HYPERLIPIDEMIA DIABETES MELLITUS Plan: CONTINUE NITRATES, BETA BLOCKERS, ASPIRIN, CLOPIDOGREL, LOSARTAN, DM MEDICATIONS RENAXA OUT PATIENT COMPLIANCE WITH MEDICATIONS AND REGULAR FU WITH PHYSICIANS STRESSED TO THE PATIENT
[2017-08-25 12:12] VITALS: BP 124/77; PULSE 67; RESP 18; TEMP 97.9; O2SAT 99
== END 2017-08-25 14:58 | disposition home or self-care (01) ==
LOC: H.ER 18:13 → H.ERHOLD 23:18 → H.TEL 08-24 01:14
PROVIDERS: ADMIT Internal Medicine; ATTEND Internal Medicine
DX: I25.119 Atherosclerotic heart disease of native coronary artery with unspecified angina pectoris (principal); Z95.5 Presence of coronary angioplasty implant and graft; I13.0 Hypertensive heart and chronic kidney disease with heart failure and stage 1 through stage 4 chronic kidney disease, or unspecified chronic kidney disease; I50.9 Heart failure, unspecified; Z91.14 Patient's other noncompliance with medication regimen; E11.22 Type 2 diabetes mellitus with diabetic chronic kidney disease; Z87.891 Personal history of nicotine dependence; N18.9 Chronic kidney disease, unspecified; E78.5 Hyperlipidemia, unspecified; E78.00 Pure hypercholesterolemia, unspecified; I25.2 Old myocardial infarction; M19.90 Unspecified osteoarthritis, unspecified site
CPT/HCPCS: 36415; 80053; 82948; 84484; 85025; 93005; 99283; G0378; G0480

== ENCOUNTER 2017-09-16 19:10 | Inpatient (IN) | payer OTHER ==
[2017-09-16 19:10] VITALS: PULSE 71
[2017-09-16 19:24] VITALS: BMI 35.9
--- NOTE | 2017-09-16 19:27 | ED PDOC ---
HPI: Cardiac Arrest Time Seen by Provider: 09/16/17 19:12 Chief Complaint (Nursing): Cardiac Arrest Past Medical History - Medical History PMH: Anemia, Arthritis, Atrial Fibrillation, CAD, Cardia Arrhythmia (atrial fib) , CHF, Diabetes (type II), Gall Bladder Disease, HTN, Hypercholesterolemia, Peripheral Edema, Chronic Kidney Disease (renal insufficiency) - Surgical History Surgical History: Cholecystectomy, Coronary Stent - Family History Family History: States: [place] (mother at age 70) Denies: Unknown Family Hx - Immunization History Hx Tetanus Toxoid Vaccination: No Hx Influenza Vaccination: No Hx Pneumococcal Vaccination: No - Home Medications Home Medications: Ambulatory Orders Medication Instructions Recorded Clopidogrel [Plavix] 75 mg PO DAILY #30 tab 10/08/16 Losartan Potassium 50 mg PO DAILY 03/23/17 Metoprolol Succinate [Toprol XL] 50 mg PO DAILY 06/04/17 SITagliptin [Januvia] 100 mg PO DAILY 06/04/17 Atorvastatin [Lipitor] 20 mg PO DAILY #60 tab 06/07/17 Isosorbide Mononitrate ER [Imdur 90 mg PO DAILY #60 tab 06/07/17 ER] Nitroglycerin [Nitrostat] 0.4 mg PO PRN PRN 08/23/17 Pantoprazole [Protonix EC Tab] 40 mg PO DAILY 08/23/17 Ranolazine [Ranexa] 500 mg PO Q12 #60 ter 08/25/17 - Allergies Allergies/Adverse Reactions: Allergies Allergy/AdvReac Type Severity Reaction Status Date / Time No Known Allergies Allergy Verified 09/16/17 19:13 Medical Decision Making Medical Decision Making: Time: 19:21 Initial plan: EKG B-Type Natriuretic Peptide CMP Urine Drug Screening Troponin ED Urine Dipstick CBC PTT Prothrombin Time Chest x-ray Shelby catheter insertion Heplock insertion Urinalysis Reevaluation Scribe Attestation: Documented by Macie Johnson, acting as a scribe for Ousmane Samaniego MD. Provider Scribe Attestation: All medical record entries made by the Scribe were at my direction and personally dictated by me. I have reviewed the chart and agree that the record accurately reflects my personal performance of the history, physical exam, medical decision making, and the department course for this patient. I have also personally directed, reviewed, and agree with the discharge instructions and disposition. Disposition - Disposition Forms: [email or web address] (Kazakh)
--- NOTE | 2017-09-16 19:33 | ED PDOC ---
HPI: Cardiac Arrest Time Seen by Provider: 09/16/17 19:12 Chief Complaint (Nursing): Cardiac Arrest Chief Complaint (Provider): Cardiac Arrest History Per: EMS Circumstances: Brought To ED By EMS CPR Initiated Prior To MD Arrival?: Yes Medications Given Prior To MD Arrival: Epinephrine, Atropine, Other (normal saline) Additional Complaint(s): Patient is a 66 y/o male with a past medical history of non-STEMI coronary artery disease, congestive heart failure, and alcoholism with history of non compliance and chronic pain brought to the emergency department by EMS sp cardiac arrest. Prior to patient contact with EMS, patient reportedly called 911 with a complaint of choking. Upon EMS arrival, patient was found to have a thready pulse and went into cardiac arrest, followed by around 15 min of ACLS by EMS . Patient was then found to be in spontaneous circulation for approximately 7.5 minutes followed by asystole for around 15 minutes. Patient arrived intubated with active compressions. Per EMS, 7 doses of epinephrine, one dose of atropine, and 400 mL of 0.9 normal saline was given prior to arrival. Of note, no family was at home or present locally. Past medical history was indicated by prior records. Due to the present circumstances and the return of spontaneous circulation, hypothermia protocol was initiated. Throughout course of treatment, patient was in PEA. When cardiac rhythm returned, atrial flutter was noted. Past Medical History Reviewed: Historical Data, Nursing Documentation, Vital Signs Vital Signs: Last Vital Signs Temp 95.7 F L 09/17/17 14:00 Pulse 69 09/17/17 17:00 Resp 18 09/17/17 17:00 BP 36/19 L 09/17/17 17:00 Pulse Ox 96 09/17/17 04:30 - Medical History PMH: Anemia, Arthritis, Atrial Fibrillation, CAD, Cardia Arrhythmia (atrial fib) , CHF, Diabetes (type II), Gall Bladder Disease, HTN, Hypercholesterolemia, Peripheral Edema, Chronic Kidney Disease (renal insufficiency) - Surgical History Surgical History: Cholecystectomy, Coronary Stent - Family History Family History: States: [place] (mother at age 70) Denies: Unknown Family Hx - Immunization History Hx Tetanus Toxoid Vaccination: No Hx Influenza Vaccination: No Hx Pneumococcal Vaccination: No - Home Medications Home Medications: Ambulatory Orders Medication Instructions Recorded Clopidogrel [Plavix] 75 mg PO DAILY #30 tab 10/08/16 Losartan Potassium 50 mg PO DAILY 03/23/17 Metoprolol Succinate [Toprol XL] 50 mg PO DAILY 06/04/17 SITagliptin [Januvia] 100 mg PO DAILY 06/04/17 Atorvastatin [Lipitor] 20 mg PO DAILY #60 tab 06/07/17 Isosorbide Mononitrate ER [Imdur 90 mg PO DAILY #60 tab 06/07/17 ER] Nitroglycerin [Nitrostat] 0.4 mg PO PRN PRN 08/23/17 Pantoprazole [Protonix EC Tab] 40 mg PO DAILY 08/23/17 Ranolazine [Ranexa] 500 mg PO Q12 #60 ter 08/25/17 - Allergies Allergies/Adverse Reactions: Allergies Allergy/AdvReac Type Severity Reaction Status Date / Time No Known Allergies Allergy Verified 09/16/17 19:13 Review of Systems Review Of Systems: ROS cannot be obtained secondary to pt's inabilty to answer questions. (due to patient's clinical condition) Physical Exam - Reviewed Nursing Documentation Reviewed: Yes Vital Signs Reviewed: Yes - Physical Exam Appears: Positive for: In Acute Distress (intubated by EMS prior to arrival) Respiratory: Positive for: Normal Breath Sounds (equal bilaterally, with bagging ) Gastrointestinal/Abdominal: Positive for: Soft Neurologic/Psych: Negative for: Alert, Oriented Comments: Full PE limited due to patient's clinical condition. - Laboratory Results Result Diagrams: 09/17/17 13:30 09/17/17 13:30 - ECG ECG Rhythm: Positive for: Atrial Flutter - Critical Care Total Time (In Min): 60 Medical Decision Making Medical Decision Making: Time: 19:21 Initial plan: sp cardiac arrest EKG B-Type Natriuretic Peptide CMP Urine Drug Screening Troponin ED Urine Dipstick CBC PTT Prothrombin Time Chest x-ray Shelby catheter insertion Heplock insertion Urinalysis Reevaluation Upon arrival, patient presented with an accucheck reading of 193 pt with R tibial intraosseus placed by EMS prior to arrival 19:21 ACLS initiated with short time in which there was a return of spontaneous circulation. hypothermia initiated. 19:39 No pulse detected. Compressions re started. 19:39 Epinephrine given. 19:41 Patient is in PEA. 19:41 Bicarbonate given. 19:43 Pulse detected. Heart rate: 119. 19:53 Ventilations via BVM in progress, with noted improvement of O2. 19:53 Dr. Santos was paged. he states to admit patient to hospitalist. Levophed ordered due to dropping BP. Central line placed in R groin. 20:00 Dr. Huerta at bedside. 20:02 Pulse checked. Patient is in PEA. Epinephrine given. 20:03 Bicarb given. 20:[address] spoke with Dr Ruby pts supply specialist - is familiar with patient. no further rec. at this time. pt to be admitted to ICU udner Dr Huerta. Dr Huerta at bedside. Scribe Attestation: Documented by Macie Johnson, acting as a scribe for Pamela Pearson MD. Provider Scribe Attestation: All medical record entries made by the Scribe were at my direction and personally dictated by me. I have reviewed the chart and agree that the record accurately reflects my personal performance of the history, physical exam, medical decision making, and the department course for this patient. I have also personally directed, reviewed, and agree with the discharge instructions and disposition. Disposition - Clinical Impression Clinical Impression: Cardiac arrest - Patient ED Disposition Is Patient to be Admitted: Yes - Disposition Disposition Time: 20:30 Condition: CRITICAL Central Line Placement - Central Line Placement Indication: Emergent IV Access Central Line Placement: Right: Femoral The Area Was Thoroughly Prepared With: Betadine Procedure: Triple Lumen, Placed Using Standard Seldinger Technique, Catheter Was Sewn Into Place, Sterile Dressing Placed Over Line, Procedure Tolerated Well
[2017-09-16 19:34] LABS: BASO # 0.2 K/uL (0.0-0.2); BASO % 1.1 % (0.0-2.0); EOS # 0.2 K/uL (0.0-0.7); EOS % 1.6 % (0.0-4.0); LYMPH # 6.4 K/uL (1.0-4.3); MEAN CELL VOLUME 87.4 fl (80.0-94.0); MEAN CORPUSCULAR HEMOGLOBIN 24.6 pg (27.0-31.0); MEAN CORPUSCULAR HGB CONC 28.1 g/dL (33.0-37.0); MEAN PLATELET VOLUME 11.7 fl (7.2-11.7); MONO # 0.9 K/uL (0.0-0.8); MONO % 6.2 % (0.0-10.0); NEUT # 6.2 K/uL (1.8-7.0); NEUT % 45.1 % (50.0-75.0); NRBC % 0.3 % (0.0-0.0); RBC 3.67 Mil/uL (4.40-5.90); RED CELL DISTRIBUTION WIDTH 17.6 % (11.5-14.5); WHITE BLOOD COUNT 13.9 K/uL (4.8-10.8)
[2017-09-16 19:39] LABS: ABG ALLEN TEST YES; ARTERIAL BLOOD GAS HCO3 9.6 mmol/L (21-28); ARTERIAL BLOOD GAS O2 SAT 84.8 % (95-98); ARTERIAL BLOOD GAS PCO2 88 mm/Hg (35-45); ARTERIAL BLOOD GAS PH 6.87 (7.35-7.45); ARTERIAL BLOOD GAS PO2 65 mm/Hg (80-100); ARTERIAL BLOOD GAS TCO2 18.8 mmol/L (22-28)
[2017-09-16] MEDS ORDERED: Magnesium Sulfate 2 gm/50 ml 0 GM/0 ML BAG ONE (19:40)
[2017-09-16 19:49] LABS: ALB/GLOB RATIO 1.2 (1.0-2.1); ALBUMIN 3.4 g/dL (3.5-5.0); CALCIUM 9.5 mg/dL (8.4-10.2)
[2017-09-16 19:56] LABS: TROPONIN I 0.091 ng/mL (0.00-0.120)
[2017-09-16 20:04] LABS: URINE BACTERIA RARE (<OCC); URINE BILIRUBIN NEGATIVE (NEGATIVE); URINE BLOOD SMALL (NEGATIVE); URINE CLARITY CLOUDY (Clear); URINE COLOR YELLOW (YELLOW); URINE GLUCOSE (UA) NEG (Normal); URINE LEUKOCYTE ESTERASE LARGE Leu/uL (Negative); URINE NITRATE NEGATIVE (NEGATIVE); URINE PROTEIN 30 mg/dL (NEGATIVE); URINE UROBILINOGEN 0.2-1.0 mg/dL (0.2-1.0)
[2017-09-16 20:05] LABS: URINE HYALINE CAST 0-1 /hpf (0-2)
[2017-09-16 20:17] LABS: BARBITURATES, UR NEGATIVE (NEGATIVE); BENZODIAZEPINES, UR NEGATIVE (NEGATIVE); OPIATES, UR NEGATIVE (NEGATIVE); PHENCYCLIDINE, UR NEGATIVE (NEGATIVE)
[2017-09-16] MEDS ORDERED: Naloxone 0.4 mg/ml Inj (Adult) IVP ONE ×2 (20:21→22:16)
[2017-09-16] MEDS ORDERED: Sodium Chloride 0.9% 1,000 ML IV SCH (20:45)
[2017-09-16] MEDS ORDERED: Glucagon Recombinant 1 mg Inj IM PRN (20:53)
[2017-09-16] MEDS ORDERED: Dextrose 50% SYRINGE Inj (50 ml) IV PRN (20:53)
[2017-09-16 21:01] LABS: INR 1.1 (0.9-1.2); PARTIAL THROMBOPLASTIN TIME 46.2 Seconds (25.6-37.1); PROTHROMBIN TIME 11.8 Seconds (9.8-13.1)
--- NOTE | 2017-09-16 21:05 | CP.PCM.HP ---
History of Present Illness - History of Present Illness History of Present Illness: CC: Cardiac arrest in the field HPI: This is a 66 y/o male with Mhx significant for CAD/NSTEMI in past, CHF, DM2 , and EtOH abuse who was brought in by EMS after suffering cardiac arrest at home. Per ER staff, patient had called 911 with c/o choking. EMS arrived and found patient down and with weak pulse, and patient eventually went into cardiac arrest. Apparently, per EMS, patient was in asystole. After 7.5 min of CPR, there was ROSC. Patient arrived to ER intubated, having received 7 of epi, 1 of atropine, and 400 ml of NS. In ER patient had 3 more episodes of cardiac arrest with ROSC. Patient never regained mental status thus far. Patient received 4 bicarbs and another 6 of epi during these subsequent codes. Hypothermia protocol was initiated. Some pertinent info obtained from prior charts. ROS: could not be performed as patient not conscious MHx/SHx: CAD/NSTEMI, CHF, DM2, EtOH abuse Allergies: NKDA Medications: As per med rec Family Hx: CAD and Cancer in family Social: Lives alone, no tobacco, there is history of EtOH abuse, there is history of IVDU Surrogate: cannot obtain currently Present on Admission - Present on Admission Any Indicators Present on Admission: No Past Patient History - Infectious Disease Hx of Infectious Diseases: None - Past Medical History & Family History Past Medical History?: Yes - Past Social History Smoking Status: Former Smoker - CARDIAC Hx Atrial Fibrillation: Yes Hx Cardia Arrhythmia: Yes (atrial fib) Hx Congestive Heart Failure: Yes Hx Hypercholesterolemia: Yes Hx Hypertension: Yes Hx Peripheral Edema: Yes - PULMONARY Hx Respiratory Disorders: Yes Other/Comment: S/P tracheostomy and reversal due to throat infection - NEUROLOGICAL Hx Neurological Disorder: No - HEENT Hx HEENT Problems: No - RENAL Hx Chronic Kidney Disease: Yes (renal insufficiency) - ENDOCRINE/METABOLIC Hx Endocrine Disorders: Yes Hx Diabetes Mellitus Type 2: Yes - HEMATOLOGICAL/ONCOLOGICAL Hx Anemia: Yes - INTEGUMENTARY Hx Dermatological Problems: No - MUSCULOSKELETAL/RHEUMATOLOGICAL Hx Arthritis: Yes - GASTROINTESTINAL Hx Gall Bladder Disease: Yes - GENITOURINARY/GYNECOLOGICAL Hx Genitourinary Disorders: Yes Other/Comment: scrotal lesions as per pt - PSYCHIATRIC Hx Psychophysiologic Disorder: No Hx Substance Use: No - SURGICAL HISTORY Hx Cholecystectomy: Yes Hx Coronary Stent: Yes - ANESTHESIA Hx Anesthesia: Yes Hx Anesthesia Reactions: No Hx Malignant Hyperthermia: No Meds Allergies/Adverse Reactions: Allergies Allergy/AdvReac Type Severity Reaction Status Date / Time No Known Allergies Allergy Verified 09/16/17 19:13 Physical Exam - Constitutional Appears: No Acute Distress - Head Exam Head Exam: ATRAUMATIC, NORMOCEPHALIC - Eye Exam Eye Exam: EOMI - ENT Exam ENT Exam: Mucous Membranes Moist - Respiratory Exam Additional comments: on vent, coarse breath sounds - Cardiovascular Exam Cardiovascular Exam: REGULAR RHYTHM, +S1, +S2 - GI/Abdominal Exam GI & Abdominal Exam: Normal Bowel Sounds, Soft - Extremities Exam Extremities exam: Positive for: normal inspection Additional comments: TLC in R femoral vein - Neurological Exam Additional comments: not responsive - Skin Skin Exam: Dry, Warm Results - Vital Signs Recent Vital Signs: Last Vital Signs Temp 96.3 F L 09/16/17 20:48 Pulse 79 09/16/17 20:48 Resp 16 09/16/17 20:48 BP 131/76 09/16/17 20:48 Pulse Ox 98 09/16/17 20:48 - Labs Result Diagrams: 09/16/17 19:31 09/16/17 19:31 Labs: Laboratory Results - last 24 hr 09/16/17 09/16/17 09/16/17 19:30 19:31 19:31 WBC 13.9 H RBC 3.67 L Hgb 9.0 L Hct 32.1 L MCV 87.4 D MCH 24.6 L MCHC 28.1 L RDW 17.6 H Plt Count 201 MPV 11.7 Neut % (Auto) 45.1 L Lymph % (Auto) 46.0 H Hend[place] % (Auto) 6.2 Eos % (Auto) 1.6 Baso % (Auto) 1.1 Neut # 6.2 Lymph # 6.4 H Hendry # 0.9 H Eos # 0.2 Baso # 0.2 PT INR APTT pCO2 88 H* pO2 65 L HCO3 9.6 L* ABG pH 6.87 L* ABG Total CO2 18.8 L ABG O2 Saturation 84.8 L ABG Base Excess -18.7 L Tam Test Yes ABG Potassium 3.8 A-a O2 Difference 538.0 Sodium 142.0 140 Chloride 103.0 104 Glucose 481 H* Lactate 16.3 H* FiO2 100.0 Crit Value Called To Md kaylene sawant Crit Value Called By 23 Crit Value Read Back Y Blood Gas Notified Time 1936 Potassium 4.4 Carbon Dioxide 16 L Anion Gap 24 H BUN 16 Creatinine 2.1 H Est GFR ( Amer) 38 Est GFR (Non-Af Amer) 32 Random Glucose 382 H Calcium 9.5 Total Bilirubin 0.3 AST 80 H D ALT 52 Alkaline Phosphatase 37 L Troponin I 0.0910 NT-Pro-B Natriuret Pep 2630 H Total Protein 6.3 Albumin 3.4 L D Globulin 2.9 Albumin/Globulin Ratio 1.2 Arterial Blood Potassium 3.8 Urine Color Urine Clarity Urine pH Ur Specific [place] Urine Protein Urine Glucose (UA) Urine Ketones Urine Blood Urine Nitrate Urine Bilirubin Urine Urobilinogen Ur Leukocyte Esterase Urine RBC (Auto) Urine Microscopic WBC Urine Bacteria Hyaline Casts Urine Opiates Screen Urine Methadone Screen Ur Barbiturates Screen Ur Phencyclidine Scrn Ur Amphetamines Screen U Benzodiazepines Scrn U Oth Cocaine Metabols U Cannabinoids Screen 09/16/17 09/16/17 09/16/17 19:32 19:32 20:20 WBC RBC Hgb Hct MCV MCH MCHC RDW Plt Count MPV Neut % (Auto) Lymph % (Auto) [place] % (Auto) Eos % (Auto) Baso % (Auto) Neut # Lymph # [place] # Eos # Baso # PT 11.8 INR 1.1 APTT 46.2 H pCO2 pO2 HCO3 ABG pH ABG Total CO2 ABG O2 Saturation ABG Base Excess Tam Test ABG Potassium A-a O2 Difference Sodium Chloride Glucose Lactate FiO2 Crit Value Called To Crit Value Called By Crit Value Read Back Blood Gas Notified Time Potassium Carbon Dioxide Anion Gap BUN Creatinine Est GFR ( Amer) Est GFR (Non-Af Amer) Random Glucose Calcium Total Bilirubin AST ALT Alkaline Phosphatase Troponin I NT-Pro-B Natriuret Pep Total Protein Albumin Globulin Albumin/Globulin Ratio Arterial Blood Potassium Urine Color Yellow Urine Clarity Cloudy Urine pH 6.0 Ur Specific [place] 1.021 Urine Protein 30 Urine Glucose (UA) Neg Urine Ketones Negative Urine Blood Small Urine Nitrate Negative Urine Bilirubin Negative Urine Urobilinogen 0.2-1.0 Ur Leukocyte Esterase Large Urine RBC (Auto) 6 H Urine Microscopic WBC 44 H Urine Bacteria Rare Hyaline Casts 0-1 Urine Opiates Screen Negative Urine Methadone Screen Negative Ur Barbiturates Screen Negative Ur Phencyclidine Scrn Negative Ur Amphetamines Screen Negative U Benzodiazepines Scrn Negative U Oth Cocaine Metabols Negative U Cannabinoids Screen Negative - EKG Data EKG Interpreted by: Myself Rate: Tachycardia - EKG Data EKG comments: a fib Assessment & Plan (1) Cardiac arrest Assessment and Plan: 66 y/o male with CAD, CHF, and DM2 along with Hx of EtOH abuse presenting with cardiac arrest due to as yet unknown reason. -Admit ICU -Therpeutic hypothermia protocol initiated -Patient on Levophed IV to maintain MAP above 65 if possible -Patient on Insulin gtt to regulate serum glucose -Repeat ABG now and in AM -Repeat CMP, CBC, lactic acid in AM; Trend troponin -Repeat CXR in AM -CT pending -Protonix for GI PPx -Pending DVT PPx for now Critical care time spent: 60 min Status: Acute
[2017-09-16] MEDS ORDERED: Chlorhexidine Gluconate 1 APPL/PKT TP ONE (21:55)
[2017-09-16] MEDS ORDERED: Sodium Bicarbonate 8.4% 150 MEQ in Dextrose 5%/0.9% NS 1,000 ML IV SCH (22:00)
--- NOTE | 2017-09-16 22:01 | CT ---
EXAM: CT Head Without Intravenous Contrast CLINICAL HISTORY: 66 years old, male; Signs and symptoms; Other: Cardiac arrest; Additional info: Hypothermia protocol TECHNIQUE: Axial computed tomography images of the head/brain without intravenous contrast. All CT scans at this facility use one or more dose reduction techniques, viz.: automated exposure control; ma/kV adjustment per patient size (including targeted exams where dose is matched to indication; i.e. head); or iterative reconstruction technique. Coronal and sagittal reformatted images were created and reviewed. COMPARISON: CT - HEAD W/O CONTRAST 2017-06-26 15:31 FINDINGS: Brain: Mild atrophy. Diffuse sulcal effacement. No intracranial hemorrhage. No mass. Few scattered foci of decreased attenuation within periventricular/subcortical white matter. Diffuse loss of liriano-white matter differentiation. Ventricles: No hydrocephalus. Bones/joints: No acute fracture. Soft tissues: Unremarkable. Vasculature: Atherosclerotic disease of intracranial arteries. Relative hyperdensity of vessels and dural sinuses. Sinuses: Scattered mucosal thickening of ethmoid sinuses. Scattered minimal mucosal thickening of remaining sinuses. Air-fluid level within LEFT sphenoid sinus. Mastoid air cells: No mastoid effusion. Orbits: Proptosis. Mild stranding within intraorbital fat. Tubes, lines and devices: Endotracheal tube. IMPRESSION: 1. Findings compatible with global hypoxic ischemic injury. 2. Incidental/non-acute findings are described above. THIS REPORT CONTAINS FINDINGS THAT MAY BE CRITICAL TO PATIENT CARE. The findings were verbally communicated via telephone conference with Dr. Huerta at 10:01 PM EST on 09/16/2017. The findings were acknowledged and understood.
[2017-09-16] MEDS ORDERED: Sodium Bicarbonate 7.5% (0.9 MEQ/ML) 50ML INJ IV ONE (22:16)
[2017-09-16] MEDS ORDERED: Magnesium Sulfate 1 gm/2 ml Inj IM ONE (22:16)
[2017-09-17] MEDS ORDERED: Sodium Chloride 0.9% 500 ML IV ONE (00:12)
[2017-09-17 01:43] LABS: MEAN CELL VOLUME 81.2 fl (80.0-94.0); MEAN CORPUSCULAR HEMOGLOBIN 24.4 pg (27.0-31.0); RBC 4.11 Mil/uL (4.40-5.90); RED CELL DISTRIBUTION WIDTH 16.7 % (11.5-14.5); WHITE BLOOD COUNT 11.2 K/uL (4.8-10.8)
[2017-09-17 01:56] LABS: CALCIUM 8.8 mg/dL (8.4-10.2); INR 1.1 (0.9-1.2); MAGNESIUM 2.4 MG/DL (1.6-2.3); PARTIAL THROMBOPLASTIN TIME 30.8 Seconds (25.6-37.1); PROTHROMBIN TIME 12.1 Seconds (9.8-13.1)
[2017-09-17 02:13] LABS: TROPONIN I 2.39 ng/mL (0.00-0.120)
[2017-09-17] MEDS ORDERED: Norepinephrine 16 MG in Dextrose 5% In Water 500 ML IV ONE (02:46)
[2017-09-17] MEDS: Mineral Oil/White Petrolatum Ophth Oint OU SCH ×3 (03:12→15:57)
[2017-09-17] MEDS ORDERED: DOPamine 400mg/250ml D5W 400 MG/250 ML BAG IV ONE ×2 (04:15→15:09)
[2017-09-17] MEDS ORDERED: Sodium Chloride 0.9% 1,000 ML IV SCH (04:30)
[2017-09-17 05:08] VITALS: O2SAT 96
[2017-09-17 05:48] LABS: ABG ALLEN TEST YES; ARTERIAL BLOOD GAS HCO3 24.5 mmol/L (21-28); ARTERIAL BLOOD GAS HEMOGLOBIN 11.4 g/dL (11.7-17.4); ARTERIAL BLOOD GAS O2 CAPACITY 15.5 mL/dL (16-24); ARTERIAL BLOOD GAS O2 CONTENT 12.7 ML/dL (15-23); ARTERIAL BLOOD GAS O2 SAT 81.9 % (95-98); ARTERIAL BLOOD GAS PCO2 59 mm/Hg (35-45); ARTERIAL BLOOD GAS PH 7.28 (7.35-7.45); ARTERIAL BLOOD GAS PO2 49 mm/Hg (80-100); ARTERIAL BLOOD GAS TCO2 29.5 mmol/L (22-28)
[2017-09-17] MEDS ORDERED: Pneumococcal 23-Valent Vaccine IM ONE (06:57)
[2017-09-17] MEDS ORDERED: Influenza Vaccine 18yr & older 0.5 ML/45 MCG SYR IM ONE (06:57)
[2017-09-17 06:59] LABS: HEMOGLOBIN 10.8 g/dL (12.0-18.0); MEAN CELL VOLUME 81.2 fl (80.0-94.0); MEAN CORPUSCULAR HEMOGLOBIN 24.7 pg (27.0-31.0); MEAN CORPUSCULAR HGB CONC 30.4 g/dL (33.0-37.0); RBC 4.38 Mil/uL (4.40-5.90); RED CELL DISTRIBUTION WIDTH 16.4 % (11.5-14.5); WHITE BLOOD COUNT 9.4 K/uL (4.8-10.8)
[2017-09-17 07:16] LABS: MAGNESIUM 2.5 MG/DL (1.6-2.3); TROPONIN I 8.21 ng/mL (0.00-0.120)
[2017-09-17 07:30] LABS: INR 1.1 (0.9-1.2); PARTIAL THROMBOPLASTIN TIME 32.9 Seconds (25.6-37.1); PROTHROMBIN TIME 12.1 Seconds (9.8-13.1)
--- NOTE | 2017-09-17 08:31 | RAD ---
HISTORY: chest pain COMPARISON: Chest radiograph 06/04/2017 FINDINGS: Endotracheal tube is in position terminating approximately 5 cm above the nimesh. External pacemaker identified in position at the chest. LUNGS: Cardiovascular section below. PLEURA: No significant pleural effusion identified, no pneumothorax apparent. CARDIOVASCULAR: Cardiomegaly is appreciated without bilateral perihilar bat wing shaped opacity suspicious for pulmonary venous congestion. Alternatively, infiltrate may be present. OSSEOUS STRUCTURES: No significant abnormalities. VISUALIZED UPPER ABDOMEN: Normal. OTHER FINDINGS: None. IMPRESSION: Adequate endotracheal intubation. CHF versus bilateral parahilar infiltrates. Stable cardiomegaly.
--- NOTE | 2017-09-17 08:56 | CP.CCUPN ---
CCU Subjective - Physician Review Subjective (Free Text): Overnight Admission into ICU post Cardiac arrest at home with significant down time, estimated at approx. 15 mins, with multiple subsequent Codes. Post resuscitation CT Brain reported showing evidence of hypoxic ischemic injury already. Patient now undergoing and midway into targeted temperature control / therapeutic hypothermia protocol, looks to have been started at 830PM last evening. Goal for cooling temperature is approx. 36C. He is deeply comatose with no signs of brainstem activity noted. No anxiolytics, paralytics, narcotics given. No reports of any observed seizure activity nor shivering noted. Patient is breathing 18 on AC 18, 600ml TV, 100% Peep 5, SPo2 80%. Max Levophed infusion noted and Dopamine started to augment BP. R femoral TLC in place, there is no arterial line. Other vitals and I/O's reviewed. No urine output recorded on I/Os. ROS: No other pertinent negs or positives on 10+ system review obtainable. PMSFH: All other Nursing and physician documentation reviewed to date; no new pertinent info noted relevant to current medical problems. CXR: (my interp) poor technical film, ETT position appears above nimesh, hypoexpanded lung evangelista, increased haziness noted Left worse than Right. EKG: A Fib/ Flutter at 112/min, Inferior ST elevations. IMPRESSION / MAJOR PROBLEMS NOW: 1. s/p Out of Hospital Cardiac Arrest 2. Post-Resuscitation Anoxic Encephalopathy 3. Probable Acute OK with cardiogenic shock 4. A Fib (Paroxysmal) with RVR 5. KAVON with ATN, h/o CKD III 6. Uncontrolled DM II 7. Chronic Disease Anemia PLAN: 1. More IVF hydration. Only 500ml saline seen in Med list; and has been oliguric. 2. Check serial Lactic Acid levels, VBG. May need inotropic support. 3. Repeat EKG. Serial Trops noted. ECHO now. Discuss with Interventional Cardio, though present mental status may preclude any definitive intervention with cardiac cath / PCI now. One dose of ASA given in ER. Add Plavix, discuss with Cardio. 4. Ongoing Therapeutic Hypothermia management. Neurochecks, Seizure precautions, keep HOB elevated. Will not prognosticate for now, at least until 24H cooling period has been completed. Consider formal Neurology eval. Absence of brainstem activity noted on clinical exam now. 5. Start repleting K and phosphate now before warming begins. 6. Notify [employer]. CCU Objective - Vital Signs / Intake & Output Vital Signs (Last 4 hours): Vital Signs Temp Pulse Resp BP 09/17/17 08:00 32.4 F L 72 11 L 95/61 L 09/17/17 07:30 90.1 F L 72 18 100/64 09/17/17 07:29 90.1 F L 70 12 95/56 L 09/17/17 07:00 90.3 F L 69 18 95/56 L 09/17/17 06:30 32.3 F L 65 18 100/57 L 09/17/17 06:00 90.1 F L 64 14 94/65 L 09/17/17 05:30 90.1 F L 67 14 103/70 09/17/17 05:00 33.4 F L 67 14 102/56 L Intake and Output (Last 8hrs): Intake & Output 09/16/17 09/17/17 09/17/17 22:59 06:59 14:59 Intake Total 1100 217 Output Total 0 0 Balance 1100 217 Weight 250 lb 267 lb 6 oz Intake: IV 1100 150 Intake, Piggyback 67 Output: Urine 0 0 Urethral ([place]) 0 0 - Physical Exam Physical Exam Limitations: Positive for: Altered Mental Status Head: Positive for: Normocephalic Pupils: Positive for: Non-Reactive, Other (dilated 4-5 mm) Extroacular Muscles: Positive for: Other (midline position) Conjunctiva: Positive for: Injected Mouth: Negative for: Dry Neck: Negative for: JVD, Bruit Respiratory/Chest: Positive for: Decreased Breath Sounds. Negative for: Accessory Muscle Use Cardiovascular: Positive for: Irregular Rhythm, Tachycardic Abdomen: Positive for: Distention. Negative for: Tenderness, Normal Bowel Sounds (decreased), Mass/Organomegaly Lower Extremity: Positive for: Edema, NORMAL PULSES, Capillary Refill < 2 s (GCS = ). Negative for: Cyanosis Neurological: Negative for: GCS=15 (GCS= 3) Psychiatric: Positive for: Other (Deep Coma) - Medications Active Medications: Active Medications Generic Name Dose Route Start Last Admin Trade Name Freq PRN Reason Stop Dose Admin Artificial Tears 1 applic 09/17/17 02:30 09/17/17 03:12 Lacri-Lube OU 1 applic Q4H JAZMINE Administration Dextrose 0 ml 09/16/17 20:53 Dextrose 50% Inj IV STAT PRN Hypoglycemia Protocol Protocol Dextrose 0 gm 09/16/17 20:53 Glutose 15 PO ONCE PRN Hypoglycemia Protocol Protocol Glucagon 0 mg 09/16/17 20:53 Glucagen Diagnostic Kit IM STAT PRN Hypoglycemia Protocol Protocol Insulin Human Regular 100 101 mls @ 0 mls/hr 09/16/17 21:00 09/17/17 06:59 units/ Sodium Chloride IV 2 units/hr .Q0M JAZMINE 2.02 mls/hr Protocol Titration Per Protocol Norepinephrine Bitartrate 16 516 mls @ 58.05 mls/hr 09/17/17 02:46 09/17/17 02:57 mg/ Dextrose IV 09/17/17 11:39 30 mcg/min .Q8H54M ONE 58.05 mls/hr Protocol Administration 30 MCG/MIN Sodium Chloride 1,000 mls @ 150 mls/hr 09/17/17 04:30 09/17/17 04:24 Sodium Chloride 0.9% IV 09/17/17 11:09 150 mls/hr .Q6H40M JAZMINE Administration Influenza Virus Vaccine 0.5 ml 09/17/17 06:57 Afluria (Pf)(18yr & Older) IM 09/17/17 06:58 .ONCE ONE Pantoprazole Sodium 40 mg 09/17/17 09:00 Protonix Inj IVP DAILY [facility] Pneumococcal Polyvalent Vaccine 0.5 ml 09/17/17 06:57 Pneumovax 23 Vaccine IM 09/17/17 06:58 .ONCE ONE - Patient Studies Lab Studies: Lab Studies 09/17/17 09/17/17 09/17/17 Range/Units 07:58 06:51 06:20 WBC (4.8-10.8) K/uL RBC (4.40-5.90) Mil/uL Hgb (12.0-18.0) g/dL Hct (35.0-51.0) % MCV (80.0-94.0) fl MCH (27.0-31.0) pg MCHC (33.0-37.0) g/dL RDW (11.5-14.5) % Plt Count (130-400) K/uL MPV (7.2-11.7) fl Neut % (Auto) (50.0-75.0) % Lymph % (Auto) (20.0-40.0) % [place] % (Auto) (0.0-10.0) % Eos % (Auto) (0.0-4.0) % Baso % (Auto) (0.0-2.0) % Neut # (1.8-7.0) K/uL Lymph # (1.0-4.3) K/uL [place] # (0.0-0.8) K/uL Eos # (0.0-0.7) K/uL Baso # (0.0-0.2) K/uL PT (9.8-13.1) Seconds INR (0.9-1.2) APTT (25.6-37.1) Seconds pCO2 (35-45) mm/Hg pO2 (80-100) mm/Hg HCO3 (21-28) mmol/L ABG pH (7.35-7.45) ABG Total CO2 (22-28) mmol/L ABG O2 Saturation (95-98) % ABG O2 Content (15-23) ML/dL ABG Base Excess (-2.0-3.0) mmol/L ABG Hemoglobin (11.7-17.4) g/dL ABG Carboxyhemoglobin (0.5-1.5) % POC ABG HHb (Measured) (0.0-5.0) % ABG Methemoglobin (0.0-3.0) % ABG O2 Capacity (16-24) mL/dL Tam Test ABG Potassium (3.6-5.2) mmol/L A-a O2 Difference mm/Hg Hgb O2 Saturation (95.0-98.0) % Sodium 147 (132-148) mmol/L Chloride 108 H (98-107) mmol/L Glucose (75-110) mg/dL Lactate (0.7-2.1) mmol/L Vent Mode Mechanical Rate FiO2 % Tidal Volume Crit Value Called To Crit Value Called By Crit Value Read Back Blood Gas Notified Time Potassium 3.2 L (3.6-5.0) MMOL/L Carbon Dioxide 31 H (22-30) mmol/L Anion Gap 11 (10-20) BUN 29 H (9-20) mg/dl Creatinine 3.2 H (0.8-1.5) mg/dl Est GFR ( Amer) 23 Est GFR (Non-Af Amer) 19 POC Glucose (mg/dL) 165 H 159 H (65-110) mg/dL Random Glucose 150 H (75-110) mg/dL Calcium 9.0 (8.4-10.2) mg/dL Phosphorus 2.1 L (2.5-4.5) mg/dl Magnesium 2.5 H (1.6-2.3) MG/DL Total Bilirubin (0.2-1.3) mg/dl AST (17-59) U/L ALT (21-72) U/L Alkaline Phosphatase (38-126) U/L Troponin I 8.2100 H* (0.00-0.120) ng/mL NT-Pro-B Natriuret Pep (0-900) pg/ml Total Protein (6.3-8.2) G/DL Albumin (3.5-5.0) g/dL Globulin (2.2-3.9) gm/dL Albumin/Globulin Ratio (1.0-2.1) Arterial Blood Potassium (3.6-5.2) mmol/L Urine Color (YELLOW) Urine Clarity (Clear) Urine pH (5.0-8.0) Ur Specific [place] (1.003-1.030) Urine Protein (NEGATIVE) mg/dL Urine Glucose (UA) (Normal) mg/dL Urine Ketones (NEGATIVE) mg/dL Urine Blood (NEGATIVE) Urine Nitrate (NEGATIVE) Urine Bilirubin (NEGATIVE) Urine Urobilinogen (0.2-1.0) mg/dL Ur Leukocyte Esterase (Negative) Giovanny/uL Urine RBC (Auto) (0-3) /hpf Urine Microscopic WBC (0-5) /hpf Urine Bacteria (<OCC) Hyaline Casts (0-2) /hpf Urine Opiates Screen (NEGATIVE) Urine Methadone Screen (NEGATIVE) Ur Barbiturates Screen (NEGATIVE) Ur Phencyclidine Scrn (NEGATIVE) Ur Amphetamines Screen (NEGATIVE) U Benzodiazepines Scrn (NEGATIVE) U Oth Cocaine Metabols (NEGATIVE) U Cannabinoids Screen (NEGATIVE) 09/17/17 09/17/17 09/17/17 Range/Units 06:20 06:20 06:11 WBC 9.4 (4.8-10.8) K/uL RBC 4.38 L (4.40-5.90) Mil/uL Hgb 10.8 L (12.0-18.0) g/dL Hct 35.6 (35.0-51.0) % MCV 81.2 (80.0-94.0) fl MCH 24.7 L (27.0-31.0) pg MCHC 30.4 L (33.0-37.0) g/dL RDW 16.4 H (11.5-14.5) % Plt Count 277 (130-400) K/uL MPV (7.2-11.7) fl Neut % (Auto) (50.0-75.0) % Lymph % (Auto) (20.0-40.0) % [place] % (Auto) (0.0-10.0) % Eos % (Auto) (0.0-4.0) % Baso % (Auto) (0.0-2.0) % Neut # (1.8-7.0) K/uL Lymph # (1.0-4.3) K/uL [place] # (0.0-0.8) K/uL Eos # (0.0-0.7) K/uL Baso # (0.0-0.2) K/uL PT 12.1 (9.8-13.1) Seconds INR 1.1 (0.9-1.2) APTT 32.9 (25.6-37.1) Seconds pCO2 (35-45) mm/Hg pO2 (80-100) mm/Hg HCO3 (21-28) mmol/L ABG pH (7.35-7.45) ABG Total CO2 (22-28) mmol/L ABG O2 Saturation (95-98) % ABG O2 Content (15-23) ML/dL ABG Base Excess (-2.0-3.0) mmol/L ABG Hemoglobin (11.7-17.4) g/dL ABG Carboxyhemoglobin (0.5-1.5) % POC ABG HHb (Measured) (0.0-5.0) % ABG Methemoglobin (0.0-3.0) % ABG O2 Capacity (16-24) mL/dL Tam Test ABG Potassium (3.6-5.2) mmol/L A-a O2 Difference mm/Hg Hgb O2 Saturation (95.0-98.0) % Sodium (132-148) mmol/L Chloride (98-107) mmol/L Glucose (75-110) mg/dL Lactate (0.7-2.1) mmol/L Vent Mode Mechanical Rate FiO2 % Tidal Volume Crit Value Called To Crit Value Called By Crit Value Read Back Blood Gas Notified Time Potassium (3.6-5.0) MMOL/L Carbon Dioxide (22-30) mmol/L Anion Gap (10-20) BUN (9-20) mg/dl Creatinine (0.8-1.5) mg/dl Est GFR ( Amer) Est GFR (Non-Af Amer) POC Glucose (mg/dL) 141 H (65-110) mg/dL Random Glucose (75-110) mg/dL Calcium (8.4-10.2) mg/dL Phosphorus (2.5-4.5) mg/dl Magnesium (1.6-2.3) MG/DL Total Bilirubin (0.2-1.3) mg/dl AST (17-59) U/L ALT (21-72) U/L Alkaline Phosphatase (38-126) U/L Troponin I (0.00-0.120) ng/mL NT-Pro-B Natriuret Pep (0-900) pg/ml Total Protein (6.3-8.2) G/DL Albumin (3.5-5.0) g/dL Globulin (2.2-3.9) gm/dL Albumin/Globulin Ratio (1.0-2.1) Arterial Blood Potassium (3.6-5.2) mmol/L Urine Color (YELLOW) Urine Clarity (Clear) Urine pH (5.0-8.0) Ur Specific [place] (1.003-1.030) Urine Protein (NEGATIVE) mg/dL Urine Glucose (UA) (Normal) mg/dL Urine Ketones (NEGATIVE) mg/dL Urine Blood (NEGATIVE) Urine Nitrate (NEGATIVE) Urine Bilirubin (NEGATIVE) Urine Urobilinogen (0.2-1.0) mg/dL Ur Leukocyte Esterase (Negative) Giovanny/uL Urine RBC (Auto) (0-3) /hpf Urine Microscopic WBC (0-5) /hpf Urine Bacteria (<OCC) Hyaline Casts (0-2) /hpf Urine Opiates Screen (NEGATIVE) Urine Methadone Screen (NEGATIVE) Ur Barbiturates Screen (NEGATIVE) Ur Phencyclidine Scrn (NEGATIVE) Ur Amphetamines Screen (NEGATIVE) U Benzodiazepines Scrn (NEGATIVE) U Oth Cocaine Metabols (NEGATIVE) U Cannabinoids Screen (NEGATIVE) 09/17/17 09/17/17 09/17/17 Range/Units 05:23 05:18 04:04 WBC (4.8-10.8) K/uL RBC (4.40-5.90) Mil/uL Hgb (12.0-18.0) g/dL Hct (35.0-51.0) % MCV (80.0-94.0) fl MCH (27.0-31.0) pg MCHC (33.0-37.0) g/dL RDW (11.5-14.5) % Plt Count (130-400) K/uL MPV (7.2-11.7) fl Neut % (Auto) (50.0-75.0) % Lymph % (Auto) (20.0-40.0) % [place] % (Auto) (0.0-10.0) % Eos % (Auto) (0.0-4.0) % Baso % (Auto) (0.0-2.0) % Neut # (1.8-7.0) K/uL Lymph # (1.0-4.3) K/uL [place] # (0.0-0.8) K/uL Eos # (0.0-0.7) K/uL Baso # (0.0-0.2) K/uL PT (9.8-13.1) Seconds INR (0.9-1.2) APTT (25.6-37.1) Seconds pCO2 59 H (35-45) mm/Hg pO2 49 L (80-100) mm/Hg HCO3 24.5 (21-28) mmol/L ABG pH 7.28 L (7.35-7.45) ABG Total CO2 29.5 H (22-28) mmol/L ABG O2 Saturation 81.9 L (95-98) % ABG O2 Content 12.7 L (15-23) ML/dL ABG Base Excess 0 (-2.0-3.0) mmol/L ABG Hemoglobin 11.4 L (11.7-17.4) g/dL ABG Carboxyhemoglobin 1.4 (0.5-1.5) % POC ABG HHb (Measured) 17.5 H (0.0-5.0) % ABG Methemoglobin 2.0 (0.0-3.0) % ABG O2 Capacity 15.5 L (16-24) mL/dL Tam Test Yes ABG Potassium (3.6-5.2) mmol/L A-a O2 Difference 590.0 mm/Hg Hgb O2 Saturation 79.1 L (95.0-98.0) % Sodium (132-148) mmol/L Chloride (98-107) mmol/L Glucose (75-110) mg/dL Lactate (0.7-2.1) mmol/L Vent Mode A/c Mechanical Rate 14 FiO2 100.0 % Tidal Volume 600 Crit Value Called To Crit Value Called By Crit Value Read Back Blood Gas Notified Time Potassium (3.6-5.0) MMOL/L Carbon Dioxide (22-30) mmol/L Anion Gap (10-20) BUN (9-20) mg/dl Creatinine (0.8-1.5) mg/dl Est GFR ( Amer) Est GFR (Non-Af Amer) POC Glucose (mg/dL) 138 H 149 H (65-110) mg/dL Random Glucose (75-110) mg/dL Calcium (8.4-10.2) mg/dL Phosphorus (2.5-4.5) mg/dl Magnesium (1.6-2.3) MG/DL Total Bilirubin (0.2-1.3) mg/dl AST (17-59) U/L ALT (21-72) U/L Alkaline Phosphatase (38-126) U/L Troponin I (0.00-0.120) ng/mL NT-Pro-B Natriuret Pep (0-900) pg/ml Total Protein (6.3-8.2) G/DL Albumin (3.5-5.0) g/dL Globulin (2.2-3.9) gm/dL Albumin/Globulin Ratio (1.0-2.1) Arterial Blood Potassium (3.6-5.2) mmol/L Urine Color (YELLOW) Urine Clarity (Clear) Urine pH (5.0-8.0) Ur Specific [place] (1.003-1.030) Urine Protein (NEGATIVE) mg/dL Urine Glucose (UA) (Normal) mg/dL Urine Ketones (NEGATIVE) mg/dL Urine Blood (NEGATIVE) Urine Nitrate (NEGATIVE) Urine Bilirubin (NEGATIVE) Urine Urobilinogen (0.2-1.0) mg/dL Ur Leukocyte Esterase (Negative) Giovanny/uL Urine RBC (Auto) (0-3) /hpf Urine Microscopic WBC (0-5) /hpf Urine Bacteria (<OCC) Hyaline Casts (0-2) /hpf Urine Opiates Screen (NEGATIVE) Urine Methadone Screen (NEGATIVE) Ur Barbiturates Screen (NEGATIVE) Ur Phencyclidine Scrn (NEGATIVE) Ur Amphetamines Screen (NEGATIVE) U Benzodiazepines Scrn (NEGATIVE) U Oth Cocaine Metabols (NEGATIVE) U Cannabinoids Screen (NEGATIVE) 09/17/17 09/17/17 09/17/17 Range/Units 03:14 01:57 01:39 WBC (4.8-10.8) K/uL RBC (4.40-5.90) Mil/uL Hgb (12.0-18.0) g/dL Hct (35.0-51.0) % MCV (80.0-94.0) fl MCH (27.0-31.0) pg MCHC (33.0-37.0) g/dL RDW (11.5-14.5) % Plt Count (130-400) K/uL MPV (7.2-11.7) fl Neut % (Auto) (50.0-75.0) % Lymph % (Auto) (20.0-40.0) % [place] % (Auto) (0.0-10.0) % Eos % (Auto) (0.0-4.0) % Baso % (Auto) (0.0-2.0) % Neut # (1.8-7.0) K/uL Lymph # (1.0-4.3) K/uL [place] # (0.0-0.8) K/uL Eos # (0.0-0.7) K/uL Baso # (0.0-0.2) K/uL PT (9.8-13.1) Seconds INR (0.9-1.2) APTT (25.6-37.1) Seconds pCO2 (35-45) mm/Hg pO2 (80-100) mm/Hg HCO3 (21-28) mmol/L ABG pH (7.35-7.45) ABG Total CO2 (22-28) mmol/L ABG O2 Saturation (95-98) % ABG O2 Content (15-23) ML/dL ABG Base Excess (-2.0-3.0) mmol/L ABG Hemoglobin (11.7-17.4) g/dL ABG Carboxyhemoglobin (0.5-1.5) % POC ABG HHb (Measured) (0.0-5.0) % ABG Methemoglobin (0.0-3.0) % ABG O2 Capacity (16-24) mL/dL Tam Test ABG Potassium (3.6-5.2) mmol/L A-a O2 Difference mm/Hg Hgb O2 Saturation (95.0-98.0) % Sodium 144 (132-148) mmol/L Chloride 106 (98-107) mmol/L Glucose (75-110) mg/dL Lactate (0.7-2.1) mmol/L Vent Mode Mechanical Rate FiO2 % Tidal Volume Crit Value Called To Crit Value Called By Crit Value Read Back Blood Gas Notified Time Potassium 3.7 (3.6-5.0) MMOL/L Carbon Dioxide 29 (22-30) mmol/L Anion Gap 13 (10-20) BUN 24 H (9-20) mg/dl Creatinine 2.7 H (0.8-1.5) mg/dl Est GFR ( Amer) 29 Est GFR (Non-Af Amer) 24 POC Glucose (mg/dL) 140 H 175 H (65-110) mg/dL Random Glucose 209 H (75-110) mg/dL Calcium 8.8 (8.4-10.2) mg/dL Phosphorus 2.7 (2.5-4.5) mg/dl Magnesium 2.4 H (1.6-2.3) MG/DL Total Bilirubin (0.2-1.3) mg/dl AST (17-59) U/L ALT (21-72) U/L Alkaline Phosphatase (38-126) U/L Troponin I 2.3900 H* (0.00-0.120) ng/mL NT-Pro-B Natriuret Pep (0-900) pg/ml Total Protein (6.3-8.2) G/DL Albumin (3.5-5.0) g/dL Globulin (2.2-3.9) gm/dL Albumin/Globulin Ratio (1.0-2.1) Arterial Blood Potassium (3.6-5.2) mmol/L Urine Color (YELLOW) Urine Clarity (Clear) Urine pH (5.0-8.0) Ur Specific [place] (1.003-1.030) Urine Protein (NEGATIVE) mg/dL Urine Glucose (UA) (Normal) mg/dL Urine Ketones (NEGATIVE) mg/dL Urine Blood (NEGATIVE) Urine Nitrate (NEGATIVE) Urine Bilirubin (NEGATIVE) Urine Urobilinogen (0.2-1.0) mg/dL Ur Leukocyte Esterase (Negative) Giovanny/uL Urine RBC (Auto) (0-3) /hpf Urine Microscopic WBC (0-5) /hpf Urine Bacteria (<OCC) Hyaline Casts (0-2) /hpf Urine Opiates Screen (NEGATIVE) Urine Methadone Screen (NEGATIVE) Ur Barbiturates Screen (NEGATIVE) Ur Phencyclidine Scrn (NEGATIVE) Ur Amphetamines Screen (NEGATIVE) U Benzodiazepines Scrn (NEGATIVE) U Oth Cocaine Metabols (NEGATIVE) U Cannabinoids Screen (NEGATIVE) 09/17/17 09/17/17 09/17/17 Range/Units 01:39 01:39 01:00 WBC 11.2 H (4.8-10.8) K/uL RBC 4.11 L (4.40-5.90) Mil/uL Hgb 10.0 L (12.0-18.0) g/dL Hct 33.4 L (35.0-51.0) % MCV 81.2 D (80.0-94.0) fl MCH 24.4 L (27.0-31.0) pg MCHC 30.0 L (33.0-37.0) g/dL RDW 16.7 H (11.5-14.5) % Plt Count 269 (130-400) K/uL MPV (7.2-11.7) fl Neut % (Auto) (50.0-75.0) % Lymph % (Auto) (20.0-40.0) % [place] % (Auto) (0.0-10.0) % Eos % (Auto) (0.0-4.0) % Baso % (Auto) (0.0-2.0) % Neut # (1.8-7.0) K/uL Lymph # (1.0-4.3) K/uL [place] # (0.0-0.8) K/uL Eos # (0.0-0.7) K/uL Baso # (0.0-0.2) K/uL PT 12.1 (9.8-13.1) Seconds INR 1.1 (0.9-1.2) APTT 30.8 D (25.6-37.1) Seconds pCO2 (35-45) mm/Hg pO2 (80-100) mm/Hg HCO3 (21-28) mmol/L ABG pH (7.35-7.45) ABG Total CO2 (22-28) mmol/L ABG O2 Saturation (95-98) % ABG O2 Content (15-23) ML/dL ABG Base Excess (-2.0-3.0) mmol/L ABG Hemoglobin (11.7-17.4) g/dL ABG Carboxyhemoglobin (0.5-1.5) % POC ABG HHb (Measured) (0.0-5.0) % ABG Methemoglobin (0.0-3.0) % ABG O2 Capacity (16-24) mL/dL Tam Test ABG Potassium (3.6-5.2) mmol/L A-a O2 Difference mm/Hg Hgb O2 Saturation (95.0-98.0) % Sodium (132-148) mmol/L Chloride (98-107) mmol/L Glucose (75-110) mg/dL Lactate (0.7-2.1) mmol/L Vent Mode Mechanical Rate FiO2 % Tidal Volume Crit Value Called To Crit Value Called By Crit Value Read Back Blood Gas Notified Time Potassium (3.6-5.0) MMOL/L Carbon Dioxide (22-30) mmol/L Anion Gap (10-20) BUN (9-20) mg/dl Creatinine (0.8-1.5) mg/dl Est GFR ( Amer) Est GFR (Non-Af Amer) POC Glucose (mg/dL) 195 H (65-110) mg/dL Random Glucose (75-110) mg/dL Calcium (8.4-10.2) mg/dL Phosphorus (2.5-4.5) mg/dl Magnesium (1.6-2.3) MG/DL Total Bilirubin (0.2-1.3) mg/dl AST (17-59) U/L ALT (21-72) U/L Alkaline Phosphatase (38-126) U/L Troponin I (0.00-0.120) ng/mL NT-Pro-B Natriuret Pep (0-900) pg/ml Total Protein (6.3-8.2) G/DL Albumin (3.5-5.0) g/dL Globulin (2.2-3.9) gm/dL Albumin/Globulin Ratio (1.0-2.1) Arterial Blood Potassium (3.6-5.2) mmol/L Urine Color (YELLOW) Urine Clarity (Clear) Urine pH (5.0-8.0) Ur Specific [place] (1.003-1.030) Urine Protein (NEGATIVE) mg/dL Urine Glucose (UA) (Normal) mg/dL Urine Ketones (NEGATIVE) mg/dL Urine Blood (NEGATIVE) Urine Nitrate (NEGATIVE) Urine Bilirubin (NEGATIVE) Urine Urobilinogen (0.2-1.0) mg/dL Ur Leukocyte Esterase (Negative) Giovanny/uL Urine RBC (Auto) (0-3) /hpf Urine Microscopic WBC (0-5) /hpf Urine Bacteria (<OCC) Hyaline Casts (0-2) /hpf Urine Opiates Screen (NEGATIVE) Urine Methadone Screen (NEGATIVE) Ur Barbiturates Screen (NEGATIVE) Ur Phencyclidine Scrn (NEGATIVE) Ur Amphetamines Screen (NEGATIVE) U Benzodiazepines Scrn (NEGATIVE) U Oth Cocaine Metabols (NEGATIVE) U Cannabinoids Screen (NEGATIVE) 09/16/17 09/16/17 09/16/17 Range/Units 23:50 23:00 22:18 WBC (4.8-10.8) K/uL RBC (4.40-5.90) Mil/uL Hgb (12.0-18.0) g/dL Hct (35.0-51.0) % MCV (80.0-94.0) fl MCH (27.0-31.0) pg MCHC (33.0-37.0) g/dL RDW (11.5-14.5) % Plt Count (130-400) K/uL MPV (7.2-11.7) fl Neut % (Auto) (50.0-75.0) % Lymph % (Auto) (20.0-40.0) % [place] % (Auto) (0.0-10.0) % Eos % (Auto) (0.0-4.0) % Baso % (Auto) (0.0-2.0) % Neut # (1.8-7.0) K/uL Lymph # (1.0-4.3) K/uL [place] # (0.0-0.8) K/uL Eos # (0.0-0.7) K/uL Baso # (0.0-0.2) K/uL PT (9.8-13.1) Seconds INR (0.9-1.2) APTT (25.6-37.1) Seconds pCO2 (35-45) mm/Hg pO2 (80-100) mm/Hg HCO3 (21-28) mmol/L ABG pH (7.35-7.45) ABG Total CO2 (22-28) mmol/L ABG O2 Saturation (95-98) % ABG O2 Content (15-23) ML/dL ABG Base Excess (-2.0-3.0) mmol/L ABG Hemoglobin (11.7-17.4) g/dL ABG Carboxyhemoglobin (0.5-1.5) % POC ABG HHb (Measured) (0.0-5.0) % ABG Methemoglobin (0.0-3.0) % ABG O2 Capacity (16-24) mL/dL Tam Test ABG Potassium (3.6-5.2) mmol/L A-a O2 Difference mm/Hg Hgb O2 Saturation (95.0-98.0) % Sodium (132-148) mmol/L Chloride (98-107) mmol/L Glucose (75-110) mg/dL Lactate (0.7-2.1) mmol/L Vent Mode Mechanical Rate FiO2 % Tidal Volume Crit Value Called To Crit Value Called By Crit Value Read Back Blood Gas Notified Time Potassium (3.6-5.0) MMOL/L Carbon Dioxide (22-30) mmol/L Anion Gap (10-20) BUN (9-20) mg/dl Creatinine (0.8-1.5) mg/dl Est GFR ( Amer) Est GFR (Non-Af Amer) POC Glucose (mg/dL) 297 H 301 H 298 H (65-110) mg/dL Random Glucose (75-110) mg/dL Calcium (8.4-10.2) mg/dL Phosphorus (2.5-4.5) mg/dl Magnesium (1.6-2.3) MG/DL Total Bilirubin (0.2-1.3) mg/dl AST (17-59) U/L ALT (21-72) U/L Alkaline Phosphatase (38-126) U/L Troponin I (0.00-0.120) ng/mL NT-Pro-B Natriuret Pep (0-900) pg/ml Total Protein (6.3-8.2) G/DL Albumin (3.5-5.0) g/dL Globulin (2.2-3.9) gm/dL Albumin/Globulin Ratio (1.0-2.1) Arterial Blood Potassium (3.6-5.2) mmol/L Urine Color (YELLOW) Urine Clarity (Clear) Urine pH (5.0-8.0) Ur Specific [place] (1.003-1.030) Urine Protein (NEGATIVE) mg/dL Urine Glucose (UA) (Normal) mg/dL Urine Ketones (NEGATIVE) mg/dL Urine Blood (NEGATIVE) Urine Nitrate (NEGATIVE) Urine Bilirubin (NEGATIVE) Urine Urobilinogen (0.2-1.0) mg/dL Ur Leukocyte Esterase (Negative) Giovanny/uL Urine RBC (Auto) (0-3) /hpf Urine Microscopic WBC (0-5) /hpf Urine Bacteria (<OCC) Hyaline Casts (0-2) /hpf Urine Opiates Screen (NEGATIVE) Urine Methadone Screen (NEGATIVE) Ur Barbiturates Screen (NEGATIVE) Ur Phencyclidine Scrn (NEGATIVE) Ur Amphetamines Screen (NEGATIVE) U Benzodiazepines Scrn (NEGATIVE) U Oth Cocaine Metabols (NEGATIVE) U Cannabinoids Screen (NEGATIVE) 09/16/17 09/16/17 09/16/17 Range/Units 20:20 19:32 19:32 WBC (4.8-10.8) K/uL RBC (4.40-5.90) Mil/uL Hgb (12.0-18.0) g/dL Hct (35.0-51.0) % MCV (80.0-94.0) fl MCH (27.0-31.0) pg MCHC (33.0-37.0) g/dL RDW (11.5-14.5) % Plt Count (130-400) K/uL MPV (7.2-11.7) fl Neut % (Auto) (50.0-75.0) % Lymph % (Auto) (20.0-40.0) % [place] % (Auto) (0.0-10.0) % Eos % (Auto) (0.0-4.0) % Baso % (Auto) (0.0-2.0) % Neut # (1.8-7.0) K/uL Lymph # (1.0-4.3) K/uL [place] # (0.0-0.8) K/uL Eos # (0.0-0.7) K/uL Baso # (0.0-0.2) K/uL PT 11.8 (9.8-13.1) Seconds INR 1.1 (0.9-1.2) APTT 46.2 H (25.6-37.1) Seconds pCO2 (35-45) mm/Hg pO2 (80-100) mm/Hg HCO3 (21-28) mmol/L ABG pH (7.35-7.45) ABG Total CO2 (22-28) mmol/L ABG O2 Saturation (95-98) % ABG O2 Content (15-23) ML/dL ABG Base Excess (-2.0-3.0) mmol/L ABG Hemoglobin (11.7-17.4) g/dL ABG Carboxyhemoglobin (0.5-1.5) % POC ABG HHb (Measured) (0.0-5.0) % ABG Methemoglobin (0.0-3.0) % ABG O2 Capacity (16-24) mL/dL Tam Test ABG Potassium (3.6-5.2) mmol/L A-a O2 Difference mm/Hg Hgb O2 Saturation (95.0-98.0) % Sodium (132-148) mmol/L Chloride (98-107) mmol/L Glucose (75-110) mg/dL Lactate (0.7-2.1) mmol/L Vent Mode Mechanical Rate FiO2 % Tidal Volume Crit Value Called To Crit Value Called By Crit Value Read Back Blood Gas Notified Time Potassium (3.6-5.0) MMOL/L Carbon Dioxide (22-30) mmol/L Anion Gap (10-20) BUN (9-20) mg/dl Creatinine (0.8-1.5) mg/dl Est GFR ( Amer) Est GFR (Non-Af Amer) POC Glucose (mg/dL) (65-110) mg/dL Random Glucose (75-110) mg/dL Calcium (8.4-10.2) mg/dL Phosphorus (2.5-4.5) mg/dl Magnesium (1.6-2.3) MG/DL Total Bilirubin (0.2-1.3) mg/dl AST (17-59) U/L ALT (21-72) U/L Alkaline Phosphatase (38-126) U/L Troponin I (0.00-0.120) ng/mL NT-Pro-B Natriuret Pep (0-900) pg/ml Total Protein (6.3-8.2) G/DL Albumin (3.5-5.0) g/dL Globulin (2.2-3.9) gm/dL Albumin/Globulin Ratio (1.0-2.1) Arterial Blood Potassium (3.6-5.2) mmol/L Urine Color Yellow (YELLOW) Urine Clarity Cloudy (Clear) Urine pH 6.0 (5.0-8.0) Ur Specific [place] 1.021 (1.003-1.030) Urine Protein 30 (NEGATIVE) mg/dL Urine Glucose (UA) Neg (Normal) mg/dL Urine Ketones Negative (NEGATIVE) mg/dL Urine Blood Small (NEGATIVE) Urine Nitrate Negative (NEGATIVE) Urine Bilirubin Negative (NEGATIVE) Urine Urobilinogen 0.2-1.0 (0.2-1.0) mg/dL Ur Leukocyte Esterase Large (Negative) Giovanny/uL Urine RBC (Auto) 6 H (0-3) /hpf Urine Microscopic WBC 44 H (0-5) /hpf Urine Bacteria Rare (<OCC) Hyaline Casts 0-1 (0-2) /hpf Urine Opiates Screen Negative (NEGATIVE) Urine Methadone Screen Negative (NEGATIVE) Ur Barbiturates Screen Negative (NEGATIVE) Ur Phencyclidine Scrn Negative (NEGATIVE) Ur Amphetamines Screen Negative (NEGATIVE) U Benzodiazepines Scrn Negative (NEGATIVE) U Oth Cocaine Metabols Negative (NEGATIVE) U Cannabinoids Screen Negative (NEGATIVE) 09/16/17 09/16/17 09/16/17 Range/Units 19:31 19:31 19:30 WBC 13.9 H (4.8-10.8) K/uL RBC 3.67 L (4.40-5.90) Mil/uL Hgb 9.0 L (12.0-18.0) g/dL Hct 32.1 L (35.0-51.0) % MCV 87.4 D (80.0-94.0) fl MCH 24.6 L (27.0-31.0) pg MCHC 28.1 L (33.0-37.0) g/dL RDW 17.6 H (11.5-14.5) % Plt Count 201 (130-400) K/uL MPV 11.7 (7.2-11.7) fl Neut % (Auto) 45.1 L (50.0-75.0) % Lymph % (Auto) 46.0 H (20.0-40.0) % [place] % (Auto) 6.2 (0.0-10.0) % Eos % (Auto) 1.6 (0.0-4.0) % Baso % (Auto) 1.1 (0.0-2.0) % Neut # 6.2 (1.8-7.0) K/uL Lymph # 6.4 H (1.0-4.3) K/uL [place] # 0.9 H (0.0-0.8) K/uL Eos # 0.2 (0.0-0.7) K/uL Baso # 0.2 (0.0-0.2) K/uL PT (9.8-13.1) Seconds INR (0.9-1.2) APTT (25.6-37.1) Seconds pCO2 88 H* (35-45) mm/Hg pO2 65 L (80-100) mm/Hg HCO3 9.6 L* (21-28) mmol/L ABG pH 6.87 L* (7.35-7.45) ABG Total CO2 18.8 L (22-28) mmol/L ABG O2 Saturation 84.8 L (95-98) % ABG O2 Content (15-23) ML/dL ABG Base Excess -18.7 L (-2.0-3.0) mmol/L ABG Hemoglobin (11.7-17.4) g/dL ABG Carboxyhemoglobin (0.5-1.5) % POC ABG HHb (Measured) (0.0-5.0) % ABG Methemoglobin (0.0-3.0) % ABG O2 Capacity (16-24) mL/dL Tam Test Yes ABG Potassium 3.8 (3.6-5.2) mmol/L A-a O2 Difference 538.0 mm/Hg Hgb O2 Saturation (95.0-98.0) % Sodium 140 142.0 (132-148) mmol/L Chloride 104 103.0 (98-107) mmol/L Glucose 481 H* (75-110) mg/dL Lactate 16.3 H* (0.7-2.1) mmol/L Vent Mode Mechanical Rate FiO2 100.0 % Tidal Volume Crit Value Called To Md kaylene sawant Crit Value Called By 23 Crit Value Read Back Y Blood Gas Notified Time 1936 Potassium 4.4 (3.6-5.0) MMOL/L Carbon Dioxide 16 L (22-30) mmol/L Anion Gap 24 H (10-20) BUN 16 (9-20) mg/dl Creatinine 2.1 H (0.8-1.5) mg/dl Est GFR ( Amer) 38 Est GFR (Non-Af Amer) 32 POC Glucose (mg/dL) (65-110) mg/dL Random Glucose 382 H (75-110) mg/dL Calcium 9.5 (8.4-10.2) mg/dL Phosphorus (2.5-4.5) mg/dl Magnesium (1.6-2.3) MG/DL Total Bilirubin 0.3 (0.2-1.3) mg/dl AST 80 H D (17-59) U/L ALT 52 (21-72) U/L Alkaline Phosphatase 37 L (38-126) U/L Troponin I 0.0910 (0.00-0.120) ng/mL NT-Pro-B Natriuret Pep 2630 H (0-900) pg/ml Total Protein 6.3 (6.3-8.2) G/DL Albumin 3.4 L D (3.5-5.0) g/dL Globulin 2.9 (2.2-3.9) gm/dL Albumin/Globulin Ratio 1.2 (1.0-2.1) Arterial Blood Potassium 3.8 (3.6-5.2) mmol/L Urine Color (YELLOW) Urine Clarity (Clear) Urine pH (5.0-8.0) Ur Specific [place] (1.003-1.030) Urine Protein (NEGATIVE) mg/dL Urine Glucose (UA) (Normal) mg/dL Urine Ketones (NEGATIVE) mg/dL Urine Blood (NEGATIVE) Urine Nitrate (NEGATIVE) Urine Bilirubin (NEGATIVE) Urine Urobilinogen (0.2-1.0) mg/dL Ur Leukocyte Esterase (Negative) Giovanny/uL Urine RBC (Auto) (0-3) /hpf Urine Microscopic WBC (0-5) /hpf Urine Bacteria (<OCC) Hyaline Casts (0-2) /hpf Urine Opiates Screen (NEGATIVE) Urine Methadone Screen (NEGATIVE) Ur Barbiturates Screen (NEGATIVE) Ur Phencyclidine Scrn (NEGATIVE) Ur Amphetamines Screen (NEGATIVE) U Benzodiazepines Scrn (NEGATIVE) U Oth Cocaine Metabols (NEGATIVE) U Cannabinoids Screen (NEGATIVE) Laboratory Results - last 24 hr 09/16/17 09/16/17 09/16/17 19:30 19:31 19:31 WBC 13.9 H RBC 3.67 L Hgb 9.0 L Hct 32.1 L MCV 87.4 D MCH 24.6 L MCHC 28.1 L RDW 17.6 H Plt Count 201 MPV 11.7 Neut % (Auto) 45.1 L Lymph % (Auto) 46.0 H [place] % (Auto) 6.2 Eos % (Auto) 1.6 Baso % (Auto) 1.1 Neut # 6.2 Lymph # 6.4 H [place] # 0.9 H Eos # 0.2 Baso # 0.2 PT INR APTT pCO2 88 H* pO2 65 L HCO3 9.6 L* ABG pH 6.87 L* ABG Total CO2 18.8 L ABG O2 Saturation 84.8 L ABG O2 Content ABG Base Excess -18.7 L ABG Hemoglobin ABG Carboxyhemoglobin POC ABG HHb (Measured) ABG Methemoglobin ABG O2 Capacity Tam Test Yes ABG Potassium 3.8 A-a O2 Difference 538.0 Hgb O2 Saturation Sodium 142.0 140 Chloride 103.0 104 Glucose 481 H* Lactate 16.3 H* Vent Mode Mechanical Rate FiO2 100.0 Tidal Volume Crit Value Called To Md kaylene sawant Crit Value Called By 23 Crit Value Read Back Y Blood Gas Notified Time 1936 Potassium 4.4 Carbon Dioxide 16 L Anion Gap 24 H BUN 16 Creatinine 2.1 H Est GFR ( Amer) 38 Est GFR (Non-Af Amer) 32 POC Glucose (mg/dL) Random Glucose 382 H Calcium 9.5 Phosphorus Magnesium Total Bilirubin 0.3 AST 80 H D ALT 52 Alkaline Phosphatase 37 L Troponin I 0.0910 NT-Pro-B Natriuret Pep 2630 H Total Protein 6.3 Albumin 3.4 L D Globulin 2.9 Albumin/Globulin Ratio 1.2 Arterial Blood Potassium 3.8 Urine Color Urine Clarity Urine pH Ur Specific [place] Urine Protein Urine Glucose (UA) Urine Ketones Urine Blood Urine Nitrate Urine Bilirubin Urine Urobilinogen Ur Leukocyte Esterase Urine RBC (Auto) Urine Microscopic WBC Urine Bacteria Hyaline Casts Urine Opiates Screen Urine Methadone Screen Ur Barbiturates Screen Ur Phencyclidine Scrn Ur Amphetamines Screen U Benzodiazepines Scrn U Oth Cocaine Metabols U Cannabinoids Screen 09/16/17 09/16/17 09/16/17 19:32 19:32 20:20 WBC RBC Hgb Hct MCV MCH MCHC RDW Plt Count MPV Neut % (Auto) Lymph % (Auto) [place] % (Auto) Eos % (Auto) Baso % (Auto) Neut # Lymph # [place] # Eos # Baso # PT 11.8 INR 1.1 APTT 46.2 H pCO2 pO2 HCO3 ABG pH ABG Total CO2 ABG O2 Saturation ABG O2 Content ABG Base Excess ABG Hemoglobin ABG Carboxyhemoglobin POC ABG HHb (Measured) ABG Methemoglobin ABG O2 Capacity Tam Test ABG Potassium A-a O2 Difference Hgb O2 Saturation Sodium Chloride Glucose Lactate Vent Mode Mechanical Rate FiO2 Tidal Volume Crit Value Called To Crit Value Called By Crit Value Read Back Blood Gas Notified Time Potassium Carbon Dioxide Anion Gap BUN Creatinine Est GFR ( Amer) Est GFR (Non-Af Amer) POC Glucose (mg/dL) Random Glucose Calcium Phosphorus Magnesium Total Bilirubin AST ALT Alkaline Phosphatase Troponin I NT-Pro-B Natriuret Pep Total Protein Albumin Globulin Albumin/Globulin Ratio Arterial Blood Potassium Urine Color Yellow Urine Clarity Cloudy Urine pH 6.0 Ur Specific [place] 1.021 Urine Protein 30 Urine Glucose (UA) Neg Urine Ketones Negative Urine Blood Small Urine Nitrate Negative Urine Bilirubin Negative Urine Urobilinogen 0.2-1.0 Ur Leukocyte Esterase Large Urine RBC (Auto) 6 H Urine Microscopic WBC 44 H Urine Bacteria Rare Hyaline Casts 0-1 Urine Opiates Screen Negative Urine Methadone Screen Negative Ur Barbiturates Screen Negative Ur Phencyclidine Scrn Negative Ur Amphetamines Screen Negative U Benzodiazepines Scrn Negative U Oth Cocaine Metabols Negative U Cannabinoids Screen Negative 09/16/17 09/16/17 09/16/17 22:18 23:00 23:50 WBC RBC Hgb Hct MCV MCH MCHC RDW Plt Count MPV Neut % (Auto) Lymph % (Auto) [place] % (Auto) Eos % (Auto) Baso % (Auto) Neut # Lymph # [place] # Eos # Baso # PT INR APTT pCO2 pO2 HCO3 ABG pH ABG Total CO2 ABG O2 Saturation ABG O2 Content ABG Base Excess ABG Hemoglobin ABG Carboxyhemoglobin POC ABG HHb (Measured) ABG Methemoglobin ABG O2 Capacity Tam Test ABG Potassium A-a O2 Difference Hgb O2 Saturation Sodium Chloride Glucose Lactate Vent Mode Mechanical Rate FiO2 Tidal Volume Crit Value Called To Crit Value Called By Crit Value Read Back Blood Gas Notified Time Potassium Carbon Dioxide Anion Gap BUN Creatinine Est GFR ( Amer) Est GFR (Non-Af Amer) POC Glucose (mg/dL) 298 H 301 H 297 H Random Glucose Calcium Phosphorus Magnesium Total Bilirubin AST ALT Alkaline Phosphatase Troponin I NT-Pro-B Natriuret Pep Total Protein Albumin Globulin Albumin/Globulin Ratio Arterial Blood Potassium Urine Color Urine Clarity Urine pH Ur Specific [place] Urine Protein Urine Glucose (UA) Urine Ketones Urine Blood Urine Nitrate Urine Bilirubin Urine Urobilinogen Ur Leukocyte Esterase Urine RBC (Auto) Urine Microscopic WBC Urine Bacteria Hyaline Casts Urine Opiates Screen Urine Methadone Screen Ur Barbiturates Screen Ur Phencyclidine Scrn Ur Amphetamines Screen U Benzodiazepines Scrn U Oth Cocaine Metabols U Cannabinoids Screen 09/17/17 09/17/17 09/17/17 01:00 01:39 01:39 WBC 11.2 H RBC 4.11 L Hgb 10.0 L Hct 33.4 L MCV 81.2 D MCH 24.4 L MCHC 30.0 L RDW 16.7 H Plt Count 269 MPV Neut % (Auto) Lymph % (Auto) [place] % (Auto) Eos % (Auto) Baso % (Auto) Neut # Lymph # [place] # Eos # Baso # PT 12.1 INR 1.1 APTT 30.8 D pCO2 pO2 HCO3 ABG pH ABG Total CO2 ABG O2 Saturation ABG O2 Content ABG Base Excess ABG Hemoglobin ABG Carboxyhemoglobin POC ABG HHb (Measured) ABG Methemoglobin ABG O2 Capacity Tam Test ABG Potassium A-a O2 Difference Hgb O2 Saturation Sodium Chloride Glucose Lactate Vent Mode Mechanical Rate FiO2 Tidal Volume Crit Value Called To Crit Value Called By Crit Value Read Back Blood Gas Notified Time Potassium Carbon Dioxide Anion Gap BUN Creatinine Est GFR ( Amer) Est GFR (Non-Af Amer) POC Glucose (mg/dL) 195 H Random Glucose Calcium Phosphorus Magnesium Total Bilirubin AST ALT Alkaline Phosphatase Troponin I NT-Pro-B Natriuret Pep Total Protein Albumin Globulin Albumin/Globulin Ratio Arterial Blood Potassium Urine Color Urine Clarity Urine pH Ur Specific [place] Urine Protein Urine Glucose (UA) Urine Ketones Urine Blood Urine Nitrate Urine Bilirubin Urine Urobilinogen Ur Leukocyte Esterase Urine RBC (Auto) Urine Microscopic WBC Urine Bacteria Hyaline Casts Urine Opiates Screen Urine Methadone Screen Ur Barbiturates Screen Ur Phencyclidine Scrn Ur Amphetamines Screen U Benzodiazepines Scrn U Oth Cocaine Metabols U Cannabinoids Screen 09/17/17 09/17/17 09/17/17 01:39 01:57 03:14 WBC RBC Hgb Hct MCV MCH MCHC RDW Plt Count MPV Neut % (Auto) Lymph % (Auto) [place] % (Auto) Eos % (Auto) Baso % (Auto) Neut # Lymph # [place] # Eos # Baso # PT INR APTT pCO2 pO2 HCO3 ABG pH ABG Total CO2 ABG O2 Saturation ABG O2 Content ABG Base Excess ABG Hemoglobin ABG Carboxyhemoglobin POC ABG HHb (Measured) ABG Methemoglobin ABG O2 Capacity Tam Test ABG Potassium A-a O2 Difference Hgb O2 Saturation Sodium 144 Chloride 106 Glucose Lactate Vent Mode Mechanical Rate FiO2 Tidal Volume Crit Value Called To Crit Value Called By Crit Value Read Back Blood Gas Notified Time Potassium 3.7 Carbon Dioxide 29 Anion Gap 13 BUN 24 H Creatinine 2.7 H Est GFR ( Amer) 29 Est GFR (Non-Af Amer) 24 POC Glucose (mg/dL) 175 H 140 H Random Glucose 209 H Calcium 8.8 Phosphorus 2.7 Magnesium 2.4 H Total Bilirubin AST ALT Alkaline Phosphatase Troponin I 2.3900 H* NT-Pro-B Natriuret Pep Total Protein Albumin Globulin Albumin/Globulin Ratio Arterial Blood Potassium Urine Color Urine Clarity Urine pH Ur Specific [place] Urine Protein Urine Glucose (UA) Urine Ketones Urine Blood Urine Nitrate Urine Bilirubin Urine Urobilinogen Ur Leukocyte Esterase Urine RBC (Auto) Urine Microscopic WBC Urine Bacteria Hyaline Casts Urine Opiates Screen Urine Methadone Screen Ur Barbiturates Screen Ur Phencyclidine Scrn Ur Amphetamines Screen U Benzodiazepines Scrn U Oth Cocaine Metabols U Cannabinoids Screen 09/17/17 09/17/17 09/17/17 04:04 05:18 05:23 WBC RBC Hgb Hct MCV MCH MCHC RDW Plt Count MPV Neut % (Auto) Lymph % (Auto) [place] % (Auto) Eos % (Auto) Baso % (Auto) Neut # Lymph # [place] # Eos # Baso # PT INR APTT pCO2 59 H pO2 49 L HCO3 24.5 ABG pH 7.28 L ABG Total CO2 29.5 H ABG O2 Saturation 81.9 L ABG O2 Content 12.7 L ABG Base Excess 0 ABG Hemoglobin 11.4 L ABG Carboxyhemoglobin 1.4 POC ABG HHb (Measured) 17.5 H ABG Methemoglobin 2.0 ABG O2 Capacity 15.5 L Tam Test Yes ABG Potassium A-a O2 Difference 590.0 Hgb O2 Saturation 79.1 L Sodium Chloride Glucose Lactate Vent Mode A/c Mechanical Rate 14 FiO2 100.0 Tidal Volume 600 Crit Value Called To Crit Value Called By Crit Value Read Back Blood Gas Notified Time Potassium Carbon Dioxide Anion Gap BUN Creatinine Est GFR ( Amer) Est GFR (Non-Af Amer) POC Glucose (mg/dL) 149 H 138 H Random Glucose Calcium Phosphorus Magnesium Total Bilirubin AST ALT Alkaline Phosphatase Troponin I NT-Pro-B Natriuret Pep Total Protein Albumin Globulin Albumin/Globulin Ratio Arterial Blood Potassium Urine Color Urine Clarity Urine pH Ur Specific [place] Urine Protein Urine Glucose (UA) Urine Ketones Urine Blood Urine Nitrate Urine Bilirubin Urine Urobilinogen Ur Leukocyte Esterase Urine RBC (Auto) Urine Microscopic WBC Urine Bacteria Hyaline Casts Urine Opiates Screen Urine Methadone Screen Ur Barbiturates Screen Ur Phencyclidine Scrn Ur Amphetamines Screen U Benzodiazepines Scrn U Oth Cocaine Metabols U Cannabinoids Screen 09/17/17 09/17/17 09/17/17 06:11 06:20 06:20 WBC 9.4 RBC 4.38 L Hgb 10.8 L Hct 35.6 MCV 81.2 MCH 24.7 L MCHC 30.4 L RDW 16.4 H Plt Count 277 MPV Neut % (Auto) Lymph % (Auto) [place] % (Auto) Eos % (Auto) Baso % (Auto) Neut # Lymph # [place] # Eos # Baso # PT 12.1 INR 1.1 APTT 32.9 pCO2 pO2 HCO3 ABG pH ABG Total CO2 ABG O2 Saturation ABG O2 Content ABG Base Excess ABG Hemoglobin ABG Carboxyhemoglobin POC ABG HHb (Measured) ABG Methemoglobin ABG O2 Capacity Tam Test ABG Potassium A-a O2 Difference Hgb O2 Saturation Sodium Chloride Glucose Lactate Vent Mode Mechanical Rate FiO2 Tidal Volume Crit Value Called To Crit Value Called By Crit Value Read Back Blood Gas Notified Time Potassium Carbon Dioxide Anion Gap BUN Creatinine Est GFR ( Amer) Est GFR (Non-Af Amer) POC Glucose (mg/dL) 141 H Random Glucose Calcium Phosphorus Magnesium Total Bilirubin AST ALT Alkaline Phosphatase Troponin I NT-Pro-B Natriuret Pep Total Protein Albumin Globulin Albumin/Globulin Ratio Arterial Blood Potassium Urine Color Urine Clarity Urine pH Ur Specific [place] Urine Protein Urine Glucose (UA) Urine Ketones Urine Blood Urine Nitrate Urine Bilirubin Urine Urobilinogen Ur Leukocyte Esterase Urine RBC (Auto) Urine Microscopic WBC Urine Bacteria Hyaline Casts Urine Opiates Screen Urine Methadone Screen Ur Barbiturates Screen Ur Phencyclidine Scrn Ur Amphetamines Screen U Benzodiazepines Scrn U Oth Cocaine Metabols U Cannabinoids Screen 09/17/17 09/17/17 09/17/17 06:20 06:51 07:58 WBC RBC Hgb Hct MCV MCH MCHC RDW Plt Count MPV Neut % (Auto) Lymph % (Auto) [place] % (Auto) Eos % (Auto) Baso % (Auto) Neut # Lymph # [place] # Eos # Baso # PT INR APTT pCO2 pO2 HCO3 ABG pH ABG Total CO2 ABG O2 Saturation ABG O2 Content ABG Base Excess ABG Hemoglobin ABG Carboxyhemoglobin POC ABG HHb (Measured) ABG Methemoglobin ABG O2 Capacity Tam Test ABG Potassium A-a O2 Difference Hgb O2 Saturation Sodium 147 Chloride 108 H Glucose Lactate Vent Mode Mechanical Rate FiO2 Tidal Volume Crit Value Called To Crit Value Called By Crit Value Read Back Blood Gas Notified Time Potassium 3.2 L Carbon Dioxide 31 H Anion Gap 11 BUN 29 H Creatinine 3.2 H Est GFR ( Amer) 23 Est GFR (Non-Af Amer) 19 POC Glucose (mg/dL) 159 H 165 H Random Glucose 150 H Calcium 9.0 Phosphorus 2.1 L Magnesium 2.5 H Total Bilirubin AST ALT Alkaline Phosphatase Troponin I 8.2100 H* NT-Pro-B Natriuret Pep Total Protein Albumin Globulin Albumin/Globulin Ratio Arterial Blood Potassium Urine Color Urine Clarity Urine pH Ur Specific [place] Urine Protein Urine Glucose (UA) Urine Ketones Urine Blood Urine Nitrate Urine Bilirubin Urine Urobilinogen Ur Leukocyte Esterase Urine RBC (Auto) Urine Microscopic WBC Urine Bacteria Hyaline Casts Urine Opiates Screen Urine Methadone Screen Ur Barbiturates Screen Ur Phencyclidine Scrn Ur Amphetamines Screen U Benzodiazepines Scrn U Oth Cocaine Metabols U Cannabinoids Screen Radiology Interpretations (Free Text): see above EKG/Cardiology Studies: see above Fingerstick Blood Sugar Results: 165 Review of Systems - Review of Systems Systems not reviewed;Unavailable: Intubated Critical Care Progress Note - Ventilator Checklist Head of Bed 30 Degrees: Yes Daily Sedation Vacation: No (on Therapeutic Hypothermia) Daily Assessment of Readiness to Wean: No (on Therapeutic Hypothermia) Daily Spontaneous Breathing Trial: No (on Therapeutic Hypothermia) PUD Prophalyxis: Yes DVT Prophylaxis: Yes Oral Care with Chlorhexidine Gluconate {CHG}: Yes - Vent Settings MODE:: ASSIST CONTROL TIDAL VOLUME:: 600 RESP RATE:: 18 FIO2:: 100 PEEP:: 5 - Extremities/Vascular Does the Patient have a Central Venous Catheter?: Yes Insertion Site: Femoral Vein Does the Patient need a Central Venous Catheter?: Yes Does the Patient have a [place] Catheter?: Yes Does the Patient need a [place] Catheter?: Yes Catheter Insertion Criteria: Need for accurate measurement of output in critically ill patient - Prophylaxis GI Prophylaxis GI: PPI - Prophylaxis DVT Prophylaxis DVT: SCDs (TEDs) - Nutrition Nutrition: Nutrition Category Date Time Status NPO Diet [DIET] Diets 09/16/17 Breakfast Active
--- NOTE | 2017-09-17 09:16 | RAD ---
HISTORY: intubated COMPARISON: Portable chest 09/16/2017. FINDINGS: LUNGS: Endotracheal tube is unchanged in position with interval placement of a nasogastric tube which terminates in the left upper quadrant abdomen in the region of the gastric viscus. External pacemaker again noted in position. Left basilar atelectasis or infiltrate now silhouettes the left hemidiaphragm. PLEURA: No significant pleural effusion identified, no pneumothorax apparent. CARDIOVASCULAR: CHF pattern persists with persistent bat wing type pattern opacity again appreciated bilaterally. OSSEOUS STRUCTURES: No significant abnormalities. VISUALIZED UPPER ABDOMEN: Normal. OTHER FINDINGS: None. IMPRESSION: Interval increase in opacity left base likely reflects atelectasis or infiltrate with CHF pattern unchanged. No pneumothorax. Nasogastric tube in good apparent position.
--- NOTE | 2017-09-17 09:30 | RAD ---
PROCEDURE: CHEST RADIOGRAPH, 1 VIEW HISTORY: OG tube and ET tube placement COMPARISON: Chest radiograph 09/17/2017 4:45 a.m.. FINDINGS: Endotracheal tube, nasogastric tube and external pacemaker again identified placed. LUNGS: Bilateral infiltrates are difficult to exclude however CHF pattern cell to the dominant feature of bilateral perihilar pulmonary opacity. Left basilar atelectasis or infiltrate persists. PLEURA: Limited left pleural effusion not excluded. None is seen the right. No pneumothorax bilaterally. CARDIOVASCULAR: Stable prominent cardiac silhouette with pulmonary venous congestion again suggested. OSSEOUS STRUCTURES: No significant abnormalities. VISUALIZED UPPER ABDOMEN: Normal. OTHER FINDINGS: None. IMPRESSION: Persistent CHF pattern with left basilar infiltrate or atelectasis developing as well as likely small pleural effusion.
--- NOTE | 2017-09-17 09:55 | CP.PCM.CON ---
History of Present Illness - History of Present Illness History of Present Illness: THE PATIENT IS A 66 YEAR OLD MALE KNOWN TO ME FROM PRIOR [facility] ADMISSIONS. HE HAS CAD WITH AN IWMI ABOUT 5 YEARS AGO AND HAD A CARDIAC CATH FOLLOWED BY THE INSERTION OF TWO CORONARY STENTS. HE ALSO HAS HYPERTENSION, HYPERLIPIDEMIA, DM AND CKD. HE WAS ADMITTED TO [facility] A FEW TIMES OVER THE PAST YEAR FOR CHEST PAIN AND HAD A CARDIAC CATH ABOUT ONE YEAR AGO SHOWING PATENT STENTS AND SMALL VESSEL CAD. HE HAS OFTEN BEEN NON COMPLIANT WITH BOTH HIS MEDICINES AND FOLLOW UP WITH PHYSICIANS. ON HIS LAST ADMISSION LAST MONTH I CALLED THE PHARMACY AND HE HAD NOT REFILLED SOME OF HIS MEDICINES FOR MONTHS. YESTERDAY EVENING HE CALLED EMS FOR A CHOKING SENSATION AND WHEN EMS ARRIVED HE HAD A THREADY PULSE AND CPR WAS STARTED AND HE WAS GIVEN EPINEPHRINE AND ATROPINE AND WAS REPORTED TO BE ASYSTOLIC FOR ABOUT 15 MINUTES. IN THE ER HE HAD PEA AND AND WAS INTUBATED AND PLACED ON MV AND WAS ALSO GIVEN PRESSORS AND HE WENT INTO ATRIAL FIBRILLATION. HIS FIRST TROPONIN WAS NORMAL. HE WAS UNRESPONSIVE AND BELIEVED TO HAVE SUSTAINED ANOXIC ENCEPHALOPATHY AND WAS ADMITTED TO THE ICU. CARDIOLOGY WAS ASKED TO SEE HIM. Past Patient History - Infectious Disease Hx of Infectious Diseases: None - Past Medical History & Family History Past Medical History?: Yes - Past Social History Smoking Status: Former Smoker - CARDIAC Hx Atrial Fibrillation: Yes Hx Cardia Arrhythmia: Yes (atrial fib) Hx Congestive Heart Failure: Yes Hx Hypercholesterolemia: Yes Hx Hypertension: Yes Hx Peripheral Edema: Yes - PULMONARY Hx Respiratory Disorders: Yes Other/Comment: S/P tracheostomy and reversal due to throat infection - NEUROLOGICAL Hx Neurological Disorder: No - HEENT Hx HEENT Problems: No - RENAL Hx Chronic Kidney Disease: Yes (renal insufficiency) - ENDOCRINE/METABOLIC Hx Endocrine Disorders: Yes Hx Diabetes Mellitus Type 2: Yes - HEMATOLOGICAL/ONCOLOGICAL Hx Anemia: Yes - INTEGUMENTARY Hx Dermatological Problems: No - MUSCULOSKELETAL/RHEUMATOLOGICAL Hx Arthritis: Yes - GASTROINTESTINAL Hx Gall Bladder Disease: Yes - GENITOURINARY/GYNECOLOGICAL Hx Genitourinary Disorders: Yes Other/Comment: scrotal lesions as per pt - PSYCHIATRIC Hx Psychophysiologic Disorder: No Hx Substance Use: No - SURGICAL HISTORY Hx Cholecystectomy: Yes Hx Coronary Stent: Yes - ANESTHESIA Hx Anesthesia: Yes Hx Anesthesia Reactions: No Hx Malignant Hyperthermia: No Meds Allergies/Adverse Reactions: Allergies Allergy/AdvReac Type Severity Reaction Status Date / Time No Known Allergies Allergy Verified 09/16/17 19:13 - Medications Medications: Current Medications Artificial Tears (Lacri-Lube) 1 applic OU Q4H [facility] Last Admin: 09/17/17 03:12 Dose: 1 applic Dextrose (Dextrose 50% Inj) 0 ml IV STAT PRN; Protocol PRN Reason: Hypoglycemia Protocol Dextrose (Glutose 15) 0 gm PO ONCE PRN; Protocol PRN Reason: Hypoglycemia Protocol Glucagon (Glucagen Diagnostic Kit) 0 mg IM STAT PRN; Protocol PRN Reason: Hypoglycemia Protocol Insulin Human Regular 100 (units/ Sodium Chloride) 101 mls @ 0 mls/hr IV .Q0M JAZMINE; Per Protocol PRN Reason: Protocol Last Titration: 09/17/17 06:59 Dose: 2 units/hr, 2.02 mls/hr Norepinephrine Bitartrate 16 (mg/ Dextrose) 516 mls @ 58.05 mls/hr IV .Q8H54M ONE; 30 MCG/MIN PRN Reason: Protocol Stop: 09/17/17 11:39 Last Admin: 09/17/17 02:57 Dose: 30 mcg/min, 58.05 mls/hr Sodium Chloride (Sodium Chloride 0.9%) 1,000 mls @ 150 mls/hr IV .Q6H40M [facility] Stop: 09/17/17 11:09 Last Admin: 09/17/17 04:24 Dose: 150 mls/hr Potassium Chloride 10 meq/ (Sodium Chloride) 55 mls @ 55 mls/hr IV Q1 JAZMINE Stop: 09/17/17 11:59 Influenza Virus Vaccine (Afluria (Pf)(18yr & Older)) 0.5 ml IM .ONCE ONE Stop: 09/17/17 06:58 Pantoprazole Sodium (Protonix Inj) 40 mg IVP DAILY [facility] Pneumococcal Polyvalent Vaccine (Pneumovax 23 Vaccine) 0.5 ml IM .ONCE ONE Stop: 09/17/17 06:58 Physical Exam - Respiratory Exam Respiratory Exam: Clear to Auscultation Bilateral - Cardiovascular Exam Cardiovascular Exam: REGULAR RHYTHM, +S1, +S2 - Extremities Exam Extremities exam: Positive for: pedal edema - Neurological Exam Additional comments: PATIENT IS NOT RESPONDING TO VERBAL OR PAINFUL STIMULI HIS PUPILS ARE FIXED AND DILATED NO CORNEAL RESPONSE NO GAG REFLEX - Additional Findings Additional findings: EKG #1 ATRIAL FIBRILLATION, ST ELEVATIONS IN LIMB LEADS 2,3, AND F EKG #2 STRIAL FIBRILLATION, IMPROVEMENT IN ST ELEVATIONS EKG THIS AM SINUS WITH PACS ELG MONITOR NSR TROPONIN #1 NORMAL TROPONIN #2 2.39 TROPONIN #2 8.21 CR 2.7 GFR 24 CXR REPORTS NOTED(PATIENT ALSO HAS INCREASED SOFT TISSUE MASS) CT OF THE HEAD C/W GOBAL HYPOXIC ISCHEMIC INJURY Results - Vital Signs Recent Vital Signs: Last Vital Signs Temp 32.4 F L 09/17/17 08:00 Pulse 72 09/17/17 08:00 Resp 11 L 09/17/17 08:00 BP 95/61 L 09/17/17 08:00 Pulse Ox 96 09/17/17 04:30 - Labs Result Diagrams: 09/17/17 06:20 09/17/17 06:20 Labs: Laboratory Results - last 24 hr 09/16/17 09/16/17 09/16/17 19:30 19:31 19:31 WBC 13.9 H RBC 3.67 L Hgb 9.0 L Hct 32.1 L MCV 87.4 D MCH 24.6 L MCHC 28.1 L RDW 17.6 H Plt Count 201 MPV 11.7 Neut % (Auto) 45.1 L Lymph % (Auto) 46.0 H [place] % (Auto) 6.2 Eos % (Auto) 1.6 Baso % (Auto) 1.1 Neut # 6.2 Lymph # 6.4 H [place] # 0.9 H Eos # 0.2 Baso # 0.2 PT INR APTT pCO2 88 H* pO2 65 L HCO3 9.6 L* ABG pH 6.87 L* ABG Total CO2 18.8 L ABG O2 Saturation 84.8 L ABG O2 Content ABG Base Excess -18.7 L ABG Hemoglobin ABG Carboxyhemoglobin POC ABG HHb (Measured) ABG Methemoglobin ABG O2 Capacity Tam Test Yes ABG Potassium 3.8 A-a O2 Difference 538.0 Hgb O2 Saturation Sodium 142.0 140 Chloride 103.0 104 Glucose 481 H* Lactate 16.3 H* Vent Mode Mechanical Rate FiO2 100.0 Tidal Volume Crit Value Called To Md kaylene sawant Crit Value Called By 23 Crit Value Read Back Y Blood Gas Notified Time 1936 Potassium 4.4 Carbon Dioxide 16 L Anion Gap 24 H BUN 16 Creatinine 2.1 H Est GFR ( Amer) 38 Est GFR (Non-Af Amer) 32 POC Glucose (mg/dL) Random Glucose 382 H Calcium 9.5 Phosphorus Magnesium Total Bilirubin 0.3 AST 80 H D ALT 52 Alkaline Phosphatase 37 L Troponin I 0.0910 NT-Pro-B Natriuret Pep 2630 H Total Protein 6.3 Albumin 3.4 L D Globulin 2.9 Albumin/Globulin Ratio 1.2 Arterial Blood Potassium 3.8 Urine Color Urine Clarity Urine pH Ur Specific [place] Urine Protein Urine Glucose (UA) Urine Ketones Urine Blood Urine Nitrate Urine Bilirubin Urine Urobilinogen Ur Leukocyte Esterase Urine RBC (Auto) Urine Microscopic WBC Urine Bacteria Hyaline Casts Urine Opiates Screen Urine Methadone Screen Ur Barbiturates Screen Ur Phencyclidine Scrn Ur Amphetamines Screen U Benzodiazepines Scrn U Oth Cocaine Metabols U Cannabinoids Screen 09/16/17 09/16/17 09/16/17 19:32 19:32 20:20 WBC RBC Hgb Hct MCV MCH MCHC RDW Plt Count MPV Neut % (Auto) Lymph % (Auto) [place] % (Auto) Eos % (Auto) Baso % (Auto) Neut # Lymph # [place] # Eos # Baso # PT 11.8 INR 1.1 APTT 46.2 H pCO2 pO2 HCO3 ABG pH ABG Total CO2 ABG O2 Saturation ABG O2 Content ABG Base Excess ABG Hemoglobin ABG Carboxyhemoglobin POC ABG HHb (Measured) ABG Methemoglobin ABG O2 Capacity Tam Test ABG Potassium A-a O2 Difference Hgb O2 Saturation Sodium Chloride Glucose Lactate Vent Mode Mechanical Rate FiO2 Tidal Volume Crit Value Called To Crit Value Called By Crit Value Read Back Blood Gas Notified Time Potassium Carbon Dioxide Anion Gap BUN Creatinine Est GFR ( Amer) Est GFR (Non-Af Amer) POC Glucose (mg/dL) Random Glucose Calcium Phosphorus Magnesium Total Bilirubin AST ALT Alkaline Phosphatase Troponin I NT-Pro-B Natriuret Pep Total Protein Albumin Globulin Albumin/Globulin Ratio Arterial Blood Potassium Urine Color Yellow Urine Clarity Cloudy Urine pH 6.0 Ur Specific [place] 1.021 Urine Protein 30 Urine Glucose (UA) Neg Urine Ketones Negative Urine Blood Small Urine Nitrate Negative Urine Bilirubin Negative Urine Urobilinogen 0.2-1.0 Ur Leukocyte Esterase Large Urine RBC (Auto) 6 H Urine Microscopic WBC 44 H Urine Bacteria Rare Hyaline Casts 0-1 Urine Opiates Screen Negative Urine Methadone Screen Negative Ur Barbiturates Screen Negative Ur Phencyclidine Scrn Negative Ur Amphetamines Screen Negative U Benzodiazepines Scrn Negative U Oth Cocaine Metabols Negative U Cannabinoids Screen Negative 09/16/17 09/16/17 09/16/17 22:18 23:00 23:50 WBC RBC Hgb Hct MCV MCH MCHC RDW Plt Count MPV Neut % (Auto) Lymph % (Auto) [place] % (Auto) Eos % (Auto) Baso % (Auto) Neut # Lymph # [place] # Eos # Baso # PT INR APTT pCO2 pO2 HCO3 ABG pH ABG Total CO2 ABG O2 Saturation ABG O2 Content ABG Base Excess ABG Hemoglobin ABG Carboxyhemoglobin POC ABG HHb (Measured) ABG Methemoglobin ABG O2 Capacity Tam Test ABG Potassium A-a O2 Difference Hgb O2 Saturation Sodium Chloride Glucose Lactate Vent Mode Mechanical Rate FiO2 Tidal Volume Crit Value Called To Crit Value Called By Crit Value Read Back Blood Gas Notified Time Potassium Carbon Dioxide Anion Gap BUN Creatinine Est GFR ( Amer) Est GFR (Non-Af Amer) POC Glucose (mg/dL) 298 H 301 H 297 H Random Glucose Calcium Phosphorus Magnesium Total Bilirubin AST ALT Alkaline Phosphatase Troponin I NT-Pro-B Natriuret Pep Total Protein Albumin Globulin Albumin/Globulin Ratio Arterial Blood Potassium Urine Color Urine Clarity Urine pH Ur Specific [place] Urine Protein Urine Glucose (UA) Urine Ketones Urine Blood Urine Nitrate Urine Bilirubin Urine Urobilinogen Ur Leukocyte Esterase Urine RBC (Auto) Urine Microscopic WBC Urine Bacteria Hyaline Casts Urine Opiates Screen Urine Methadone Screen Ur Barbiturates Screen Ur Phencyclidine Scrn Ur Amphetamines Screen U Benzodiazepines Scrn U Oth Cocaine Metabols U Cannabinoids Screen 09/17/17 09/17/17 09/17/17 01:00 01:39 01:39 WBC 11.2 H RBC 4.11 L Hgb 10.0 L Hct 33.4 L MCV 81.2 D MCH 24.4 L MCHC 30.0 L RDW 16.7 H Plt Count 269 MPV Neut % (Auto) Lymph % (Auto) [place] % (Auto) Eos % (Auto) Baso % (Auto) Neut # Lymph # [place] # Eos # Baso # PT 12.1 INR 1.1 APTT 30.8 D pCO2 pO2 HCO3 ABG pH ABG Total CO2 ABG O2 Saturation ABG O2 Content ABG Base Excess ABG Hemoglobin ABG Carboxyhemoglobin POC ABG HHb (Measured) ABG Methemoglobin ABG O2 Capacity Tam Test ABG Potassium A-a O2 Difference Hgb O2 Saturation Sodium Chloride Glucose Lactate Vent Mode Mechanical Rate FiO2 Tidal Volume Crit Value Called To Crit Value Called By Crit Value Read Back Blood Gas Notified Time Potassium Carbon Dioxide Anion Gap BUN Creatinine Est GFR ( Amer) Est GFR (Non-Af Amer) POC Glucose (mg/dL) 195 H Random Glucose Calcium Phosphorus Magnesium Total Bilirubin AST ALT Alkaline Phosphatase Troponin I NT-Pro-B Natriuret Pep Total Protein Albumin Globulin Albumin/Globulin Ratio Arterial Blood Potassium Urine Color Urine Clarity Urine pH Ur Specific [place] Urine Protein Urine Glucose (UA) Urine Ketones Urine Blood Urine Nitrate Urine Bilirubin Urine Urobilinogen Ur Leukocyte Esterase Urine RBC (Auto) Urine Microscopic WBC Urine Bacteria Hyaline Casts Urine Opiates Screen Urine Methadone Screen Ur Barbiturates Screen Ur Phencyclidine Scrn Ur Amphetamines Screen U Benzodiazepines Scrn U Oth Cocaine Metabols U Cannabinoids Screen 09/17/17 09/17/17 09/17/17 01:39 01:57 03:14 WBC RBC Hgb Hct MCV MCH MCHC RDW Plt Count MPV Neut % (Auto) Lymph % (Auto) [place] % (Auto) Eos % (Auto) Baso % (Auto) Neut # Lymph # [place] # Eos # Baso # PT INR APTT pCO2 pO2 HCO3 ABG pH ABG Total CO2 ABG O2 Saturation ABG O2 Content ABG Base Excess ABG Hemoglobin ABG Carboxyhemoglobin POC ABG HHb (Measured) ABG Methemoglobin ABG O2 Capacity Tam Test ABG Potassium A-a O2 Difference Hgb O2 Saturation Sodium 144 Chloride 106 Glucose Lactate Vent Mode Mechanical Rate FiO2 Tidal Volume Crit Value Called To Crit Value Called By Crit Value Read Back Blood Gas Notified Time Potassium 3.7 Carbon Dioxide 29 Anion Gap 13 BUN 24 H Creatinine 2.7 H Est GFR ( Amer) 29 Est GFR (Non-Af Amer) 24 POC Glucose (mg/dL) 175 H 140 H Random Glucose 209 H Calcium 8.8 Phosphorus 2.7 Magnesium 2.4 H Total Bilirubin AST ALT Alkaline Phosphatase Troponin I 2.3900 H* NT-Pro-B Natriuret Pep Total Protein Albumin Globulin Albumin/Globulin Ratio Arterial Blood Potassium Urine Color Urine Clarity Urine pH Ur Specific [place] Urine Protein Urine Glucose (UA) Urine Ketones Urine Blood Urine Nitrate Urine Bilirubin Urine Urobilinogen Ur Leukocyte Esterase Urine RBC (Auto) Urine Microscopic WBC Urine Bacteria Hyaline Casts Urine Opiates Screen Urine Methadone Screen Ur Barbiturates Screen Ur Phencyclidine Scrn Ur Amphetamines Screen U Benzodiazepines Scrn U Oth Cocaine Metabols U Cannabinoids Screen 09/17/17 09/17/17 09/17/17 04:04 05:18 05:23 WBC RBC Hgb Hct MCV MCH MCHC RDW Plt Count MPV Neut % (Auto) Lymph % (Auto) [place] % (Auto) Eos % (Auto) Baso % (Auto) Neut # Lymph # [place] # Eos # Baso # PT INR APTT pCO2 59 H pO2 49 L HCO3 24.5 ABG pH 7.28 L ABG Total CO2 29.5 H ABG O2 Saturation 81.9 L ABG O2 Content 12.7 L ABG Base Excess 0 ABG Hemoglobin 11.4 L ABG Carboxyhemoglobin 1.4 POC ABG HHb (Measured) 17.5 H ABG Methemoglobin 2.0 ABG O2 Capacity 15.5 L Tam Test Yes ABG Potassium A-a O2 Difference 590.0 Hgb O2 Saturation 79.1 L Sodium Chloride Glucose Lactate Vent Mode A/c Mechanical Rate 14 FiO2 100.0 Tidal Volume 600 Crit Value Called To Crit Value Called By Crit Value Read Back Blood Gas Notified Time Potassium Carbon Dioxide Anion Gap BUN Creatinine Est GFR ( Amer) Est GFR (Non-Af Amer) POC Glucose (mg/dL) 149 H 138 H Random Glucose Calcium Phosphorus Magnesium Total Bilirubin AST ALT Alkaline Phosphatase Troponin I NT-Pro-B Natriuret Pep Total Protein Albumin Globulin Albumin/Globulin Ratio Arterial Blood Potassium Urine Color Urine Clarity Urine pH Ur Specific [place] Urine Protein Urine Glucose (UA) Urine Ketones Urine Blood Urine Nitrate Urine Bilirubin Urine Urobilinogen Ur Leukocyte Esterase Urine RBC (Auto) Urine Microscopic WBC Urine Bacteria Hyaline Casts Urine Opiates Screen Urine Methadone Screen Ur Barbiturates Screen Ur Phencyclidine Scrn Ur Amphetamines Screen U Benzodiazepines Scrn U Oth Cocaine Metabols U Cannabinoids Screen 09/17/17 09/17/17 09/17/17 06:11 06:20 06:20 WBC 9.4 RBC 4.38 L Hgb 10.8 L Hct 35.6 MCV 81.2 MCH 24.7 L MCHC 30.4 L RDW 16.4 H Plt Count 277 MPV Neut % (Auto) Lymph % (Auto) [place] % (Auto) Eos % (Auto) Baso % (Auto) Neut # Lymph # [place] # Eos # Baso # PT 12.1 INR 1.1 APTT 32.9 pCO2 pO2 HCO3 ABG pH ABG Total CO2 ABG O2 Saturation ABG O2 Content ABG Base Excess ABG Hemoglobin ABG Carboxyhemoglobin POC ABG HHb (Measured) ABG Methemoglobin ABG O2 Capacity Tam Test ABG Potassium A-a O2 Difference Hgb O2 Saturation Sodium Chloride Glucose Lactate Vent Mode Mechanical Rate FiO2 Tidal Volume Crit Value Called To Crit Value Called By Crit Value Read Back Blood Gas Notified Time Potassium Carbon Dioxide Anion Gap BUN Creatinine Est GFR ( Amer) Est GFR (Non-Af Amer) POC Glucose (mg/dL) 141 H Random Glucose Calcium Phosphorus Magnesium Total Bilirubin AST ALT Alkaline Phosphatase Troponin I NT-Pro-B Natriuret Pep Total Protein Albumin Globulin Albumin/Globulin Ratio Arterial Blood Potassium Urine Color Urine Clarity Urine pH Ur Specific [place] Urine Protein Urine Glucose (UA) Urine Ketones Urine Blood Urine Nitrate Urine Bilirubin Urine Urobilinogen Ur Leukocyte Esterase Urine RBC (Auto) Urine Microscopic WBC Urine Bacteria Hyaline Casts Urine Opiates Screen Urine Methadone Screen Ur Barbiturates Screen Ur Phencyclidine Scrn Ur Amphetamines Screen U Benzodiazepines Scrn U Oth Cocaine Metabols U Cannabinoids Screen 09/17/17 09/17/17 09/17/17 06:20 06:51 07:58 WBC RBC Hgb Hct MCV MCH MCHC RDW Plt Count MPV Neut % (Auto) Lymph % (Auto) [place] % (Auto) Eos % (Auto) Baso % (Auto) Neut # Lymph # [place] # Eos # Baso # PT INR APTT pCO2 pO2 HCO3 ABG pH ABG Total CO2 ABG O2 Saturation ABG O2 Content ABG Base Excess ABG Hemoglobin ABG Carboxyhemoglobin POC ABG HHb (Measured) ABG Methemoglobin ABG O2 Capacity Tam Test ABG Potassium A-a O2 Difference Hgb O2 Saturation Sodium 147 Chloride 108 H Glucose Lactate Vent Mode Mechanical Rate FiO2 Tidal Volume Crit Value Called To Crit Value Called By Crit Value Read Back Blood Gas Notified Time Potassium 3.2 L Carbon Dioxide 31 H Anion Gap 11 BUN 29 H Creatinine 3.2 H Est GFR ( Amer) 23 Est GFR (Non-Af Amer) 19 POC Glucose (mg/dL) 159 H 165 H Random Glucose 150 H Calcium 9.0 Phosphorus 2.1 L Magnesium 2.5 H Total Bilirubin AST ALT Alkaline Phosphatase Troponin I 8.2100 H* NT-Pro-B Natriuret Pep Total Protein Albumin Globulin Albumin/Globulin Ratio Arterial Blood Potassium Urine Color Urine Clarity Urine pH Ur Specific [place] Urine Protein Urine Glucose (UA) Urine Ketones Urine Blood Urine Nitrate Urine Bilirubin Urine Urobilinogen Ur Leukocyte Esterase Urine RBC (Auto) Urine Microscopic WBC Urine Bacteria Hyaline Casts Urine Opiates Screen Urine Methadone Screen Ur Barbiturates Screen Ur Phencyclidine Scrn Ur Amphetamines Screen U Benzodiazepines Scrn U Oth Cocaine Metabols U Cannabinoids Screen 09/17/17 09:19 WBC RBC Hgb Hct MCV MCH MCHC RDW Plt Count MPV Neut % (Auto) Lymph % (Auto) [place] % (Auto) Eos % (Auto) Baso % (Auto) Neut # Lymph # [place] # Eos # Baso # PT INR APTT pCO2 pO2 HCO3 ABG pH ABG Total CO2 ABG O2 Saturation ABG O2 Content ABG Base Excess ABG Hemoglobin ABG Carboxyhemoglobin POC ABG HHb (Measured) ABG Methemoglobin ABG O2 Capacity Tam Test ABG Potassium A-a O2 Difference Hgb O2 Saturation Sodium Chloride Glucose Lactate Vent Mode Mechanical Rate FiO2 Tidal Volume Crit Value Called To Crit Value Called By Crit Value Read Back Blood Gas Notified Time Potassium Carbon Dioxide Anion Gap BUN Creatinine Est GFR ( Amer) Est GFR (Non-Af Amer) POC Glucose (mg/dL) 154 H Random Glucose Calcium Phosphorus Magnesium Total Bilirubin AST ALT Alkaline Phosphatase Troponin I NT-Pro-B Natriuret Pep Total Protein Albumin Globulin Albumin/Globulin Ratio Arterial Blood Potassium Urine Color Urine Clarity Urine pH Ur Specific [place] Urine Protein Urine Glucose (UA) Urine Ketones Urine Blood Urine Nitrate Urine Bilirubin Urine Urobilinogen Ur Leukocyte Esterase Urine RBC (Auto) Urine Microscopic WBC Urine Bacteria Hyaline Casts Urine Opiates Screen Urine Methadone Screen Ur Barbiturates Screen Ur Phencyclidine Scrn Ur Amphetamines Screen U Benzodiazepines Scrn U Oth Cocaine Metabols U Cannabinoids Screen Assessment & Plan - Assessment and Plan (Free Text) Assessment: CARDIAC ARREST AT HOME WITH PROBABLE NEW AK IN INFERIOR WALL WITH ASYSTOLE FOR ~ [address] EVIDENCE OF HYPOXIC ENCEPHALOPATHY PRESENTLY HYPOTENSIVE ON PRESSORS CAD HISTORY OF OLD IWMI AND INSERTION OF CORONARY STENTS HYPERTENSION HISTORY HYPERLIPIDEMIA DM CKD PROGNOSIS VERY POOR Plan: THE PATIENT IS ON MV AND RECEIVING IV PRESSORS AND IV FLUIDS CONTINUE STATINS, ASPIRIN AND CLOPIDOGREL HE OF COURSE CAN NOT RECEIVE HIS BETA STEPAN, NITRATE AND NIFEDIPINE EVEN WITH AN ACUTE AK DUE TO HIS SHOCK AND NEED FOR PRESSORS DUE TO HIS ANOXIC ENCEPHALOPATHY BY HISTORY, CLINICAL EVALUATION AND CT SCAN FINDINGS; HE IS THEREFORE NOT A CANDIDATE FOR EMERGENCY IABP INSERTION AND TRANSFER FOR ACUTE CORONARY INTERVENTION THE PATIENT WAS DISCUSSED WITH THE ER PHYSICIAN, MANUFACTURING TEAM MEMBER, NURSE AND RESIDENT
[2017-09-17 10:12] VITALS: RESP 18
--- NOTE | 2017-09-17 10:46 | CARD ---
APPROVED REPORT EKG Measurement Heart [id number] <Conclusion> Atrial fibrillation with a competing junctional pacemaker Inferior-posterior infarct, possibly acute ST & T wave abnormality, consider lateral ischemia ACUTE NH / STEMI Consider right ventricular involvement in acute inferior infarct Abnormal ECG
--- NOTE | 2017-09-17 11:06 | CARD ---
APPROVED REPORT EKG Measurement Heart [id number] <Conclusion> Atrial fibrillation with rapid ventricular response Nonspecific ST abnormality Abnormal ECG
--- NOTE | 2017-09-17 11:18 | PCM.PROC ---
Procedures Attestation:: I certify that I have explained the specified Operation(s) or Procedure(s), risks, benefits and reasonable alternatives to the Patient and/or other person responsible. The opportunity was given to ask questions and all questions answered - Arterial Line Right Femoral Aseptic technique was employed throughout the procedure: Hand Hygiene done prior to procedure, Full body sterile drape, Chloraprep Antiseptic: 2 minute prep for Femoral Time Out Performed: Yes Pt. placed on Pulse Ox Monitor: Yes Central Line Prep: Chlorhexidine-Alcohol Combination Gauge (Size): 20 gauge Technique Used: Guide Wire Technique Secured by: Suture Post procedure dressing: Clear vapor permeable Patient Tolerated Procedure: well Immediate Complications: none Additional Comments: Procedure performed with Dr. Horton under supervision. Date: 09/17/17 Time: 11:00 Indication: Hemodynamic monitoring Resident: Dr. Godinez Attending: Dr. Horton A time-out was completed verifying correct patient, procedure, site, positioning , and special equipment if applicable. Allens test was performed to ensure adequate perfusion. The patients <right/left> wrist was prepped and draped in sterile fashion. 1% Lidocaine was used to anesthetize the area. A 20G Arrow arterial line was introduced into the femoral artery. The catheter was threaded over the guide wire and the needle was removed with appropriate pulsatile blood return. The catheter was then sutured in place to the skin and a sterile dressing applied. Perfusion to the extremity distal to the point of catheter insertion was checked and found to be adequate. Estimated Blood Loss: 5cc The patient tolerated the procedure well and there were no complications.
[2017-09-17 11:49] LABS: ABG ALLEN TEST YES
[2017-09-17] MEDS: Potassium CL 10 MEQ/50 ML 50 ML IVPB SCH ×2 (12:20→12:21)
[2017-09-17 12:55] LABS: ARTERIAL BLOOD GAS HCO3 22.2 mmol/L (21-28); ARTERIAL BLOOD GAS O2 SAT 37.5 % (95-98); ARTERIAL BLOOD GAS PCO2 58 mm/Hg (35-45); ARTERIAL BLOOD GAS PH 7.27 (7.35-7.45); ARTERIAL BLOOD GAS PO2 25 mm/Hg (80-100); ARTERIAL BLOOD GAS TCO2 28.4 mmol/L (22-28)
[2017-09-17] MEDS ORDERED: DOBUTamine 500mg/250ml D5W 500 MG/250 ML BAG IV SCH (13:15)
[2017-09-17 13:53] LABS: HEMOGLOBIN 10.9 g/dL (12.0-18.0); MEAN CELL VOLUME 81.5 fl (80.0-94.0); MEAN CORPUSCULAR HEMOGLOBIN 25.2 pg (27.0-31.0); MEAN CORPUSCULAR HGB CONC 30.9 g/dL (33.0-37.0); RBC 4.32 Mil/uL (4.40-5.90); RED CELL DISTRIBUTION WIDTH 16.9 % (11.5-14.5); WHITE BLOOD COUNT 7.5 K/uL (4.8-10.8)
[2017-09-17 14:09] VITALS: TEMP 95.7
[2017-09-17 14:09] LABS: CALCIUM 8.8 mg/dL (8.4-10.2); MAGNESIUM 2.2 MG/DL (1.6-2.3)
[2017-09-17 14:11] LABS: INR 1.1 (0.9-1.2)
[2017-09-17 14:30] LABS: TROPONIN I 8.96 ng/mL (0.00-0.120)
[2017-09-17 14:49] LABS: VENOUS BLOOD GAS BASE EXCESS -7.1 mmol/L (0.0-2.0); VENOUS BLOOD GAS PCO2 44 mmHg (40-60); VENOUS BLOOD GAS PO2 51 mm/Hg (30-55); VENOUS BLOOD PH 7.26 (7.32-7.43)
[2017-09-17] MEDS ORDERED: Insulin Regular 100 units/ml SC SCH (16:30)
--- NOTE | 2017-09-17 17:05 | CP.PCM.PN ---
Subjective - Date & Time of Evaluation Date of Evaluation: 09/17/17 Time of Evaluation: 16:53 - Subjective Subjective: I spoke with patient's next of kin his sister (Marzena) by calling her at [phone]. Pt. progress discussed with sister and prognosis poor given pt. with acute myocardial infarction, shock (not responding to multiple pressors), and anoxic brain injury. All questions answered and sister verbalizes understanding. Sister agrees with Do Not Resuscitate. Pt. currently intubated and sister states will come to the hospital with family for terminal extubation. Present during conversation Myself Dr. Fernando Downs Objective - Vital Signs/Intake and Output Vital Signs (last 24 hours): Temp Pulse Resp BP Pulse Ox 95.7 F L 96 H 18 35/21 L 96 09/17/17 14:00 09/17/17 16:00 09/17/17 14:00 09/17/17 16:00 09/17/17 04:30 Intake and Output: 09/17/17 09/17/17 06:59 18:59 Intake Total 1100 2066 Output Total 0 1000 Balance 1100 1066 - Medications Medications: Current Medications Artificial Tears (Lacri-Lube) 1 applic OU Q4H [facility] Last Admin: 09/17/17 15:57 Dose: 1 applic Aspirin (Aspirin) 325 mg PO DAILY [facility] Atorvastatin Calcium (Lipitor) 40 mg PO DAILY [facility] Last Admin: 09/17/17 11:38 Dose: 40 mg Clopidogrel Bisulfate (Plavix) 75 mg PO DAILY [facility] Last Admin: 09/17/17 11:37 Dose: 75 mg Dextrose (Dextrose 50% Inj) 0 ml IV STAT PRN; Protocol PRN Reason: Hypoglycemia Protocol Dextrose (Glutose 15) 0 gm PO ONCE PRN; Protocol PRN Reason: Hypoglycemia Protocol Glucagon (Glucagen Diagnostic Kit) 0 mg IM STAT PRN; Protocol PRN Reason: Hypoglycemia Protocol Norepinephrine Bitartrate 8 mg (/ Dextrose) 258 mls @ 4.83 mls/hr IV .Q24H ONE PRN Reason: 2.5 MCG/MIN Stop: 09/18/17 12:06 Last Admin: 09/17/17 15:59 Dose: 4.83 mls/hr Dobutamine HCl/Dextrose (Dobutamine/Dextrose 5% 500mg/250ml) 500 mg in 250 mls @ 27.288 mls/hr IV .Q9H10M JAZMINE PRN Reason: 7.5 MCG/KG/MIN Last Admin: 09/17/17 13:47 Dose: 27.288 mls/hr Phenylephrine HCl 10 mg/ (Sodium Chloride) 251 mls @ 30.12 mls/hr IV .Q8H20M JAZMINE; 20 MCG/MIN PRN Reason: Protocol Last Admin: 09/17/17 16:00 Dose: 20 mcg/min, 30.12 mls/hr Insulin Human Regular (Humulin R) 0 units SC ACHS JAZMINE PRN Reason: Protocol Pantoprazole Sodium (Protonix Inj) 40 mg IVP DAILY [facility] Last Admin: 09/17/17 11:36 Dose: 40 mg - Labs Labs: 09/17/17 13:30 09/17/17 13:30 PT 12.0 Seconds (9.8-13.1) 09/17/17 13:30 INR 1.1 (0.9-1.2) 09/17/17 13:30 APTT 32.9 Seconds (25.6-37.1) 09/17/17 06:20
[2017-09-17 17:15] VITALS: BP 36/19; PULSE 69
--- NOTE | 2017-09-17 17:50 | CP.PCM.PN ---
Subjective - Date & Time of Evaluation Date of Evaluation: 09/17/17 Time of Evaluation: 10:30 - Subjective Subjective: Pt remains intubated on [facility] Vent He is on 2 pressors - Levophed ( max dose 30 mcg and Dopamine 5mcg ) Hypothermia protocol done unresponsive even to pain no gag , No cough reflex A line being inserted Objective - Vital Signs/Intake and Output Vital Signs (last 24 hours): Temp Pulse Resp BP Pulse Ox 95.7 F L 69 18 36/19 L 96 09/17/17 14:00 09/17/17 17:00 09/17/17 17:00 09/17/17 17:00 09/17/17 04:30 Intake and Output: 09/17/17 09/17/17 06:59 18:59 Intake Total 1100 2426 Output Total 0 1001 Balance 1100 1425 - Medications Medications: Current Medications Artificial Tears (Lacri-Lube) 1 applic OU Q4H [facility] Last Admin: 09/17/17 15:57 Dose: 1 applic Aspirin (Aspirin) 325 mg PO DAILY [facility] Atorvastatin Calcium (Lipitor) 40 mg PO DAILY [facility] Last Admin: 09/17/17 11:38 Dose: 40 mg Clopidogrel Bisulfate (Plavix) 75 mg PO DAILY [facility] Last Admin: 09/17/17 11:37 Dose: 75 mg Dextrose (Dextrose 50% Inj) 0 ml IV STAT PRN; Protocol PRN Reason: Hypoglycemia Protocol Dextrose (Glutose 15) 0 gm PO ONCE PRN; Protocol PRN Reason: Hypoglycemia Protocol Glucagon (Glucagen Diagnostic Kit) 0 mg IM STAT PRN; Protocol PRN Reason: Hypoglycemia Protocol Norepinephrine Bitartrate 8 mg (/ Dextrose) 258 mls @ 4.83 mls/hr IV .Q24H ONE PRN Reason: 2.5 MCG/MIN Stop: 09/18/17 12:06 Last Admin: 09/17/17 15:59 Dose: 4.83 mls/hr Dobutamine HCl/Dextrose (Dobutamine/Dextrose 5% 500mg/250ml) 500 mg in 250 mls @ 27.288 mls/hr IV .Q9H10M [facility] PRN Reason: 7.5 MCG/KG/MIN Last Admin: 09/17/17 13:47 Dose: 27.288 mls/hr Phenylephrine HCl 10 mg/ (Sodium Chloride) 251 mls @ 30.12 mls/hr IV .Q8H20M JAZMINE; 20 MCG/MIN PRN Reason: Protocol Last Admin: 09/17/17 16:00 Dose: 20 mcg/min, 30.12 mls/hr Insulin Human Regular (Humulin R) 0 units SC ACHS JAZMINE PRN Reason: Protocol Pantoprazole Sodium (Protonix Inj) 40 mg IVP DAILY [facility] Last Admin: 09/17/17 11:36 Dose: 40 mg - Labs Labs: 09/17/17 13:30 09/17/17 13:30 PT 12.0 Seconds (9.8-13.1) 09/17/17 13:30 INR 1.1 (0.9-1.2) 09/17/17 13:30 APTT 32.9 Seconds (25.6-37.1) 09/17/17 06:20 - Constitutional Appears: Other (unresposnive) - Head Exam Head Exam: NORMAL INSPECTION, NORMOCEPHALIC - Eye Exam Eye Exam: Normal appearance Pupil Exam: Fixed - ENT Exam ENT Exam: Mucous Membranes Dry, Normal External Ear Exam - Respiratory Exam Additional comments: Intubated on Mech Vent - Cardiovascular Exam Cardiovascular Exam: Irregular Rhythm, +S1, +S2 - GI/Abdominal Exam GI & Abdominal Exam: Distended, Hypoactive Bowel Sounds - Extremities Exam Extremities Exam: Pedal Edema - Neurological Exam Additional comments: unresponsive - Psychiatric Exam Additional comments: unresponsive - Skin Skin Exam: Dry, Normal Color Assessment and Plan (1) Cardiac arrest Status: Acute (2) Anoxic encephalopathy Status: Acute (3) AF (paroxysmal atrial fibrillation) Status: Acute (4) Acute kidney injury superimposed on chronic kidney disease Status: Acute (5) Cardiogenic shock Status: Acute (6) DM2 (diabetes mellitus, type 2) Status: Chronic (7) CAD (coronary artery disease) Status: Chronic - Assessment and Plan (Free Text) Assessment: 66 y/o gent with known history of HTN, CAD, A Fib, DM, CKD, Alcoholism, and well known to be noncompliant with meds and ff up , was brought in Cardiac Arrest after he was found unresponsive by EMS at home. He called 911 stating he was " choking" (1) Cardiac arrest Status: Acute Had out of hospital Cardiac arrest , coded 3x in ED Hypothermia Prtocol Intubated on Vent started on Levophed max dose and now also on Dopamine Bicarb drip given (2) Anoxic encephalopathy Status: Acute Pt unresponsive even with pain no gag, cough, pupillary reflex CT of head : compatible with global hypoxemic injury will wren EEG and consult Neuro (3) AF (paroxysmal atrial fibrillation) Status: Acute rate controlled (4) Acute kidney injury superimposed on chronic kidney disease Status: Acute worsening of CKD likely due to hypoxic event , low BP IVF hydration started on pressors (5) Cardiogenic shock/NSTEMI Status: Acute started on pressors Pt with hx of CAD s/p stent noncompliant with meds Troponin elevated Cardio consulted cont Plavix, ASA (6) DM2 (diabetes mellitus, type 2) Status: Chronic accucheck (7) CAD (coronary artery disease) Status: Chronic hx of stent
--- NOTE | 2017-09-17 18:14 | CP.PCM.PRO ---
Pronouncement of Note - Clinical Findings Physical Exam: No Response Verbal/Painful Stimuli, Absent Peripheral Pulses{ Carotid & Femoral}, Absent Heart & Breath Sounds, No Pupillary Light Reflex, No Corneal Reflex, Pupils Fixed & Dilated, Absence of Vital Signs - Pronouncement Time Time of Pronouncement of : 18:10 (Cause of Acute MO) Additional Comments: pronounced with Witness Layne Downs. Family present. - Notifications Pronouncement Notifications: Family Notified, Atending Notified Metal Products Viewer Notified: Yes (Revit Drafter Alex Aragon ) - Autopsy Autopsy Requested: No [place]: [id number] Additional Comments: Revit Drafter - Alex Aragon. Body Released at Time 1900
--- NOTE | 2017-09-17 18:23 | CP.PCM.DIS ---
Provider - Provider Date of Admission: 09/16/17 19:30 Attending physician: Tervon Huerta MD Time Spent in preparation of Discharge (in minutes): 30 Diagnosis - Discharge Diagnosis (1) Acute [place] Status: Acute Hospital Course - Lab Results Lab Results: Most Recent Lab Values WBC 7.5 K/uL (4.8-10.8) 09/17/17 13:30 RBC 4.32 Mil/uL (4.40-5.90) L 09/17/17 13:30 Hgb 10.9 g/dL (12.0-18.0) L 09/17/17 13:30 Hct 35.2 % (35.0-51.0) 09/17/17 13:30 MCV 81.5 fl (80.0-94.0) 09/17/17 13:30 MCH 25.2 pg (27.0-31.0) L 09/17/17 13:30 MCHC 30.9 g/dL (33.0-37.0) L 09/17/17 13:30 RDW 16.9 % (11.5-14.5) H 09/17/17 13:30 Plt Count 278 K/uL (130-400) 09/17/17 13:30 MPV 11.7 fl (7.2-11.7) 09/16/17 19:31 Neut % (Auto) 45.1 % (50.0-75.0) L 09/16/17 19: Lymph % (Auto) 46.0 % (20.0-40.0) H 09/16/17 19:31 [place] % (Auto) 6.2 % (0.0-10.0) 09/16/17 19:31 Eos % (Auto) 1.6 % (0.0-4.0) 09/16/17 19:31 Baso % (Auto) 1.1 % (0.0-2.0) 09/16/17 19:31 Neut # 6.2 K/uL (1.8-7.0) 09/16/17 19:31 Lymph # 6.4 K/uL (1.0-4.3) H 09/16/17 19:31 [place] # 0.9 K/uL (0.0-0.8) H 09/16/17 19:31 Eos # 0.2 K/uL (0.0-0.7) 09/16/17 19:31 Baso # 0.2 K/uL (0.0-0.2) 09/16/17 19:31 PT 12.0 Seconds (9.8-13.1) 09/17/17 13:30 INR 1.1 (0.9-1.2) 09/17/17 13:30 APTT 32.9 Seconds (25.6-37.1) 09/17/17 06:20 pCO2 58 mm/Hg (35-45) H 09/17/17 11:47 pO2 51 mm/Hg (30-55) 09/17/17 14:00 HCO3 22.2 mmol/L (21-28) 09/17/17 11:47 ABG pH 7.27 (7.35-7.45) L 09/17/17 11:47 ABG Total CO2 28.4 mmol/L (22-28) H 09/17/17 11:47 ABG O2 Saturation 37.5 % (95-98) L 09/17/17 11:47 ABG O2 Content 12.7 ML/dL (15-23) L 09/17/17 05:23 ABG Base Excess -1.4 mmol/L (-2.0-3.0) 09/17/17 11:47 ABG Hemoglobin 11.4 g/dL (11.7-17.4) L 09/17/17 05:23 ABG Carboxyhemoglobin 1.4 % (0.5-1.5) 09/17/17 05:23 POC ABG HHb (Measured) 17.5 % (0.0-5.0) H 09/17/17 05:23 ABG Methemoglobin 2.0 % (0.0-3.0) 09/17/17 05:23 ABG O2 Capacity 15.5 mL/dL (16-24) L 09/17/17 05:23 Tam Test Yes 09/17/17 11:47 ABG Potassium 5.0 mmol/L (3.6-5.2) 09/17/17 11:47 VBG pH 7.26 (7.32-7.43) L 09/17/17 14:00 VBG pCO2 44 mmHg (40-60) 09/17/17 14:00 VBG HCO3 19.0 mmol/L 09/17/17 14:00 VBG Total CO2 21.1 mmol/L (22-28) L 09/17/17 14:00 VBG O2 Sat (Calc) 83.4 % (40-65) H 09/17/17 14:00 VBG Base Excess -7.1 mmol/L (0.0-2.0) L 09/17/17 14:00 VBG Potassium 3.5 mmol/L (3.6-5.2) L 09/17/17 14:00 A-a O2 Difference 607.0 mm/Hg 09/17/17 14:00 Hgb O2 Saturation 79.1 % (95.0-98.0) L 09/17/17 05:23 Sodium 139.0 mmol/L (132-148) 09/17/17 14:00 Chloride 110.0 mmol/L (98-107) H 09/17/17 14:00 Glucose 193 mg/dL (75-110) H 09/17/17 14:00 Lactate 5.3 mmol/L (0.7-2.1) H* 09/17/17 14:00 Vent Mode Prvc/ac 09/17/17 11:47 Mechanical Rate 18 09/17/17 11:47 FiO2 100.0 % 09/17/17 14:00 Tidal Volume 600 09/17/17 11:47 PEEP 5 09/17/17 11:47 Crit Value Called To Shanae louis 09/17/17 14:00 Crit Value Called By Janine 09/17/17 14:00 Crit Value Read Back Y 09/17/17 14:00 Blood Gas Notified Time 1447 09/17/17 14:00 Sodium 143 mmol/l (132-148) 09/17/17 13:30 Potassium 5.3 MMOL/L (3.6-5.0) H 09/17/17 13:30 Chloride 108 mmol/L (98-107) H 09/17/17 13:30 Carbon Dioxide 26 mmol/L (22-30) 09/17/17 13:30 Anion Gap 14 (10-20) 09/17/17 13:30 BUN 32 mg/dl (9-20) H 09/17/17 13:30 Creatinine 3.5 mg/dl (0.8-1.5) H 09/17/17 13:30 Est GFR ( Amer) 21 09/17/17 13:30 Est GFR (Non-Af Amer) 18 09/17/17 13:30 POC Glucose (mg/dL) 168 mg/dL (65-110) H 09/17/17 14:04 Random Glucose 199 mg/dL (75-110) H 09/17/17 13:30 Calcium 8.8 mg/dL (8.4-10.2) 09/17/17 13:30 Phosphorus 1.2 mg/dl (2.5-4.5) L 09/17/17 13:30 Magnesium 2.2 MG/DL (1.6-2.3) 09/17/17 13:30 Total Bilirubin 0.3 mg/dl (0.2-1.3) 09/16/17 19:31 AST 80 U/L (17-59) H D 09/16/17 19:31 ALT 52 U/L (21-72) 09/16/17 19:31 Alkaline Phosphatase 37 U/L (38-126) L 09/16/17 19:31 Troponin I 8.9600 ng/mL (0.00-0.120) H* 09/17/17 13:30 NT-Pro-B Natriuret Pep 2630 pg/ml (0-900) H 09/16/17 19:31 Total Protein 6.3 G/DL (6.3-8.2) 09/16/17 19:31 Albumin 3.4 g/dL (3.5-5.0) L D 09/16/17 19:31 Globulin 2.9 gm/dL (2.2-3.9) 09/16/17 19:31 Albumin/Globulin Ratio 1.2 (1.0-2.1) 09/16/17 19:31 Arterial Blood Potassium 5.0 mmol/L (3.6-5.2) 09/17/17 11:47 Venous Blood Potassium 3.5 mmol/L (3.6-5.2) L 09/17/17 14:00 Urine Color Yellow (YELLOW) 09/16/17 19:32 Urine Clarity Cloudy (Clear) 09/16/17 19:32 Urine pH 6.0 (5.0-8.0) 09/16/17 19:32 Ur Specific [place] 1.021 (1.003-1.030) 09/16/17 19:32 Urine Protein 30 mg/dL (NEGATIVE) 09/16/17 19:32 Urine Glucose (UA) Neg mg/dL (Normal) 09/16/17 19:32 Urine Ketones Negative mg/dL (NEGATIVE) 09/16/17 19:32 Urine Blood Small (NEGATIVE) 09/16/17 19:32 Urine Nitrate Negative (NEGATIVE) 09/16/17 19:32 Urine Bilirubin Negative (NEGATIVE) 09/16/17 19:32 Urine Urobilinogen 0.2-1.0 mg/dL (0.2-1.0) 09/16/17 19:32 Ur Leukocyte Esterase Large Giovanny/uL (Negative) 09/16/17 19:32 Urine RBC (Auto) 6 /hpf (0-3) H 09/16/17 19:32 Urine Microscopic WBC 44 /hpf (0-5) H 09/16/17 19:32 Urine Bacteria Rare (<OCC) 09/16/17 19:32 Hyaline Casts 0-1 /hpf (0-2) 09/16/17 19:32 Urine Opiates Screen Negative (NEGATIVE) 09/16/17 19:32 Urine Methadone Screen Negative (NEGATIVE) 09/16/17 19:32 Ur Barbiturates Screen Negative (NEGATIVE) 09/16/17 19:32 Ur Phencyclidine Scrn Negative (NEGATIVE) 09/16/17 19:32 Ur Amphetamines Screen Negative (NEGATIVE) 09/16/17 19:32 U Benzodiazepines Scrn Negative (NEGATIVE) 09/16/17 19:32 U Oth Cocaine Metabols Negative (NEGATIVE) 09/16/17 19:32 U Cannabinoids Screen Negative (NEGATIVE) 09/16/17 19:32 - Hospital Course Hospital Course: Pt. with PMHx of HTN, DM, CAD and ETOH abuse presented to E.D. after cardiac arrest at home. Pt. was coded by EMS and intubated in the field. In the E.D. course Pt. was coded again in the E.R. and transferred to the ICU. During the course of the ICU pt. was started on pressors and cardiology was consulted. Course discussed with Dr. Kyreakakis and pt. with poor prognosis. On 09/17/16 Pt. was noted to become hypotensisve in the systolic less than 20 despite multiple pressors and complete dependence on mechanical ventilation for respiratory function. Pt. progressed discussed with family members and DNR/DNI agreed upon. Pt. subsequently at 18:10 or 6:10pm. Vacuum Technician informed and body released and EDRS used to register . Family and PMD notified. Pt. without autopsy Discharge Exam - Head Exam Head Exam: NORMOCEPHALIC Additional comments: No response to painful stimuli - Eye Exam Eye Exam: absent: PERRL Pupil Exam: Fixed - Respiratory Exam Additional comments: no respiration - Cardiovascular Exam Additional comments: Asystole - Extremities Exam Additional comments: Cool extremities - Neurological Exam Additional comments: Pupils fixed and dilated Discharge Plan - Follow Up Plan Condition: CRITICAL Disposition: WITH WITHOUT AUTOPSY Patient education suggested?: No
--- NOTE | 2017-09-21 11:21 | PQF AMI ---
Dr. Horton Acute KS is documented in discharge summary. "New KS in Inferior Wall and NSTEMI are both documented in medical record. After study if known please clarify site of myocardial infarction. This form is a permanent part of the medical record Clarification of your documentation is requested to better reflect the severity of illness and intensity of treatment of your patient. Indicators present [] Diagnosis of KS without specification of time frame (within 28 days of admission of greater than 28 days prior to admission) [] Diagnosis of subsequent KS (time frame of previous KS within 28 days of admission or greater than 28 days of admission) [X] Diagnosis of KS w/o specified site [] EKG positive for changes (i.e.; ST elevation, non-ST elevation, Q-wave changes, etc.) [] Elevated Troponins [] Elevated Cardiac Enzymes [] Cardiac consult documentation of [] Chest pain/ACS/Unstable Angina [] Echo findings of [] Other: [] Location in the medical record that reflects the above clinical findings:[] Other Treatment Provided:[] PHYSICIAN'S RESPONSE Based on your medical judgment of the clinical indicators outlined above, are you treating this patient for a known or suspected: [ ] NSTEMI [ ] STEMI Site: [ ] [ ] ACS/Unstable Angina [ ] Angina :[ ] [ X] Other, please indicate [ ]___ If Unable to Determine, please check the box, sign and date Present On Admission (POA) Indicator: [ ] Present at the time of admission [ ] Not present at the time of admission [ ] Clinically Undetermined * If you have any questions please call:[ ] * Thank you, [ ]Dulce Pereira degreasing wheel operator In responding to this query, please exercise your independent professional judgment. The fact that a question is asked does not imply that any particular answer is desired or expected. Thank you for your clarification on this documentation. ROB
== END 2017-09-17 18:10 ==
LOC: H.ER 19:10 → H.ERHOLD 19:30 → H.ICU/CCU 21:27
PROVIDERS: ADMIT Internal Medicine; ATTEND Internal Medicine
PROC: 5A1935Z Respiratory Ventilation, Less than 24 Consecutive Hours (ICD-10-PCS; principal; 2017-09-16)
PROC: 06HM33Z Insertion of Infusion Device into Right Femoral Vein, Percutaneous Approach (ICD-10-PCS; 2017-09-16)
PROC: 04HK33Z Insertion of Infusion Device into Right Femoral Artery, Percutaneous Approach (ICD-10-PCS; 2017-09-17)
DX: I21.9 Acute myocardial infarction, unspecified (principal); R40.20 Unspecified coma; I46.2 Cardiac arrest due to underlying cardiac condition; R57.0 Cardiogenic shock; G93.1 Anoxic brain damage, not elsewhere classified; E11.22 Type 2 diabetes mellitus with diabetic chronic kidney disease; I48.92 Unspecified atrial flutter; I48.0 Paroxysmal atrial fibrillation; N17.9 Acute kidney failure, unspecified; I13.0 Hypertensive heart and chronic kidney disease with heart failure and stage 1 through stage 4 chronic kidney disease, or unspecified chronic kidney disease; I50.9 Heart failure, unspecified; E11.65 Type 2 diabetes mellitus with hyperglycemia; I25.10 Atherosclerotic heart disease of native coronary artery without angina pectoris; Z95.5 Presence of coronary angioplasty implant and graft; I25.2 Old myocardial infarction; N18.3 Chronic kidney disease, stage 3 (moderate); R09.02 Hypoxemia; E78.5 Hyperlipidemia, unspecified; E78.00 Pure hypercholesterolemia, unspecified; G89.29 Other chronic pain; Z87.891 Personal history of nicotine dependence; Z91.14 Patient's other noncompliance with medication regimen; Z91.19 Patient's noncompliance with other medical treatment and regimen; Z66 Do not resuscitate; D63.8 Anemia in other chronic diseases classified elsewhere; F10.20 Alcohol dependence, uncomplicated